=== PATIENT | male | born 1995 | race Two or more races ===

== ENCOUNTER 2016-12-25 22:15 | Inpatient (IN) | payer OTHER ==
--- NOTE | 2016-12-25 22:31 | HP ---
COWS - Scale Resting Pulse: 0= [place] 80 or Below Sweatin=Flushed/Facial Moisture Restless Observation: 1= Difficult to Sit Still Pupil Size: 1= Pupils >than Normal Bone or Joint Aches: 1= Mild Discomfort Runny Nose/ Eye Tearin= Nasal Congestion GI Upset > 30mins: 1= Stomach Cramp Tremor Observation: 2= Slight Tremor Visible Yawning Observation: 0= None Anxiety or Irritability: 1=Feels Anxious/Irritable Goose Flesh Skin: 0=Smooth Skin COWS Score: 10 CIWA Score - CIWA Score Nausea/Vomitin Muscle Tremors: 2 Anxiety: 3 Agitation: 2 Paroxysmal Sweats: 3 Orientation: 0-Oriented Tacttile Disturbances: 2-Mild Itch/Numbness/Burn Auditory Disturbances: 2-Mild Harshness/Frighten Visual Disturbances: 2-Mild Sensitivity Headache: 1-Very Mild CIWA-Ar Total Score: 20 Admission ROS BHS - HPI Chief Complaint: DEPENDENT ON ETOH, HEROIN, CRACK, BENZO. AND MARIJUANA Allergies/Adverse Reactions: Allergies Allergy/AdvReac Type Severity Reaction Status Date / Time SEAFOOD Allergy Uncoded 12/25/16 22:43 History of Present Illness: THE PT. IS REQUESTING ADMISSION TO THE DETOX UNIT AND CAME FOR MEDICAL CLEARANCE Exam Limitations: No Limitations - Ebola screening Have you traveled outside of the country in the last 21 days: No (N) Have you had contact with anyone from an Ebola affected area: No Have you been sick,other than usual withdrawal symptoms: No Do you have a fever: No - Review of Systems Constitutional: See HPI, Loss of Appetite, Malaise, Weakness, Unintentional Wgt. Loss EENT: reports: See HPI Respiratory: reports: See HPI, Wheezing Cardiac: reports: See HPI, Syncope GI: reports: See HPI, Nausea, Poor Appetite, Abdominal cramping : reports: No Symptoms Reported, See HPI Musculoskeletal: reports: See HPI, Muscle Pain, Muscle Weakness Integumentary: reports: See HPI, Sweating Neuro: reports: See HPI, Headache, Tremors, Weakness, Unsteady Gait Endocrine: reports: See HPI Hematology: reports: See HPI Psychiatric: reports: Orientated x3, Anxious, Depressed Patient History - Patient Medical History Hx Asthma: Yes Hx Seizures: No Hx Human Immunodeficiency Virus (HIV): No Hx Hepatitis C: No Hx Depression: Yes (AND ANXIETY) Hx Suicide Attempt: No - Patient Surgical History Past Surgical History: No - Smoking Cessation Smoking history: Current every day smoker Have you smoked in the past 12 months: Yes Aproximately how many cigarettes per day: 10 Hx Chewing Tobacco Use: No Initiated information on smoking cessation: No 'Breaking Loose' booklet given: 12/25/16 - Substance & Tx. History Hx Alcohol Use: Yes Substance Use Type: Alcohol, Cocaine, Heroin, Marijuana, Tranquilizers Hx Substance Use Treatment: Yes - Substances Abused Alcohol Route: Oral Frequency: Daily Amount used: BEER 3 CANS/LIQUIOR 1 P/D Age of first use: 10 Date of Last Use: 12/25/16 Heroin Route: Inhalation Frequency: Daily Amount used: 2 B/D Age of first use: 16 Date of Last Use: 12/25/16 Crack Route: Smoking Frequency: Daily Amount used: $300/D Age of first use: 16 Date of Last Use: 12/25/16 Marijuana/Hashish Route: Inhalation Frequency: Daily Amount used: $40/D Age of first use: 10 Date of Last Use: 12/25/16 Diazepam Route: Oral Frequency: Daily Amount used: 5 MG./D Age of first use: 18 Date of Last Use: 12/25/16 Family Disease History - Family Disease History Family Disease History: Other: Mother (STEP MOTHER IS ADDICTED TO ETOH AND DRUGS ) Admission Physical Exam [facility] - Physical General Appearance: Yes: No Apparent Distress, Appropriately Dressed, Thin, Tremorous, Sweating, Anxious HEENTM: Yes: Hearing grossly Normal, Normal Voice, NITA, Pharynx Normal Respiratory: Yes: Chest Non-Tender, Lungs Clear, Normal Breath Sounds, No Respiratory Distress, No Accessory Muscle Use Neck: Yes: No masses,lesions,Nodules, Supple, Trachea in good position Breast: Yes: Breast Exam Deferred, Axillae without masses Cardiology: Yes: Regular Rhythm, Regular Rate, S1, S2 Abdominal: Yes: Normal Bowel Sounds, Non Tender, Flat, Soft Back: Yes: Normal Inspection Musculoskeletal: Yes: full range of Motion, Muscle Pain, Muscle weakness Extremities: Yes: Normal Capillary Refill, Normal Range of Motion, Non-Tender, Tremors Neurological: Yes: Fully Oriented, Alert, Motor Strength 5/5, Normal Response, Depressed Affect Integumentary: Yes: Warm, Moist Lymphatic: Yes: Within Normal Limits - Addiitonal Findings: THE PT. IS VERY SLEEPY WITH AN UNSTEADY GAIT BUT KELLER X 3 UPON AWAKENING - Diagnostic (1) EtOH dependence Current Visit: Yes Status: Chronic Qualifiers: Substance use status: uncomplicated Qualified Code(s): F10.20 - Alcohol dependence, uncomplicated (2) Heroin dependence Current Visit: Yes Status: Chronic (3) Cocaine dependence Current Visit: Yes Status: Chronic Qualifiers: Substance use status: uncomplicated Qualified Code(s): F14.20 - Cocaine dependence, uncomplicated (4) Marijuana abuse Current Visit: Yes Status: Chronic (5) Benzodiazepine dependence Current Visit: Yes Status: Chronic (6) Nicotine dependence Current Visit: Yes Status: Chronic (7) Anxiety and depression Current Visit: Yes Status: Chronic Cleared for Admission S - Detox or Rehab [facility] Level of Care: Medically Managed Detox Regimen/Protocol: Valium BHS Breath Alcohol Content Breath Alcohol Content: 0 Vital Signs - Vital Signs Vital Signs Refused: No Temperature: 95.9 F Temperature Source: Oral Pulse Rate: 64 Respiratory Rate: 14 Blood Pressure: 111/69 BP Location: Left Arm Blood Pressure Position: Sitting - Height Height: 5 ft 5 in - Weight Weight: 149 lb Weight Measurement Method: Estimated by Patient Body Mass Index (BMI): 24.7 Urine Drug Screen - Test Device Lot Number: [id number] Expiration Date: 08/25/18 - Control Is Test Valid: Yes - Results Drug Screen Negative: No Urine Drug Screen Results: THC-Marijuana, BECKY-Cocaine, BZO-Benzodiazepines, TCA- Tricyclic Antidepress
[2016-12-25 22:55] VITALS: BMI 24.7
[2016-12-25] MEDS ORDERED: hydrOXYzine PAMOATE 25 MG CAPSULE (FP) PO PRN (22:55)
[2016-12-25] MEDS ORDERED: diazePAM 5 MG TABLET PO PRN (22:55)
[2016-12-25] MEDS ORDERED: MENTHOL/PHENOL 1 EACH UD MM PRN (22:55)
[2016-12-25] MEDS ORDERED: IBUPROFEN 400 MG TABLET (FP) PO PRN (22:55)
[2016-12-25] MEDS ORDERED: diphenhydrAMINE HCL 50 MG CAPSULE PO PRN (22:55)
[2016-12-25] MEDS ORDERED: MAGNESIUM HYDROX 2400MG/30ML ORAL SUSPENSION 30 ML CUP PO PRN (22:55)
[2016-12-25] MEDS ORDERED: MAG HYDROX/AL HYDROX/SIMETH 30 ML UNIT-DOSE CUP PO PRN (22:55)
[2016-12-25] MEDS ORDERED: ACETAMINOPHEN 325 MG TABLET (FP) PO PRN (22:55)
[2016-12-25] MEDS ORDERED: P-EPHED 60MG/TRIPROLIDI 2.5MG TABLET PO PRN (22:55)
[2016-12-25] MEDS ORDERED: NICOTINE POLACRILEX 2 MG GUM BC PRN (22:55)
[2016-12-25] MEDS ORDERED: guaiFENesin/D-METHORPHAN HB 10 ML UNIT-DOSE CUPS PO PRN (22:55)
[2016-12-25] MEDS ORDERED: LOPERAMIDE HCL 2 MG CAPSULE PO PRN (22:55)
[2016-12-25] MEDS ORDERED: diazePAM 5 MG TABLET PO ONE (22:55)
[2016-12-25] MEDS ORDERED: MAGNESIUM CITRATE 300 ML BOTTLE PO PRN (22:55)
[2016-12-25] MEDS ORDERED: ALBUTEROL SO4 6.7 GM HFA INHALER IH PRN (23:04)
[2016-12-25] MEDS: diazePAM 5 MG TABLET PO SCH (23:50)
[2016-12-26] MEDS: diazePAM 5 MG TABLET PO SCH ×3 (06:00→22:28)
[2016-12-26 09:48] LABS: MCH 31.4 pg (25.7-33.7); MCHC 33.2 g/dl (32.0-35.9); MEAN CELL VOLUME 94.6 fl (80-96); PLATELET COUNT 138 K/MM3 (134-434); RDW 13.8 % (11.9-15.9); WHITE BLOOD COUNT 5.4 K/mm3 (4.0-10.0)
[2016-12-26 09:56] LABS: ALBUMIN 3.3 g/dl (3.4-5.0); ANION GAP 4 (8-16); CALCIUM 8.7 mg/dL (8.5-10.1); CO2 31 mmol/L (21-32); GLUCOSE,RANDOM 119 mg/dL (74-106)
--- NOTE | 2016-12-26 09:58 | EKG ---
Test Reason : Blood Pressure : / mmHG Vent. Rate : 052 BPM Atrial Rate : 052 BPM P-R Int : 144 ms QRS Dur : 086 ms QT Int : 406 ms P-R-T Axes : -10 072 040 degrees QTc Int : 377 ms SINUS BRADYCARDIA EARLY REPOLARIZATION OTHERWISE NORMAL ECG NO PREVIOUS ECGS AVAILABLE Confirmed by LEONARD HEARD MD ([id number]) on 12/26/2016 9:58:11 AM Referred By: Confirmed By:LEONARD HEARD MD
[2016-12-26] MEDS ORDERED: NICOTINE 14 MG/24 HOURS TOPICAL PATCH TD SCH (10:00)
[2016-12-26] MEDS ORDERED: PRENATAL VITAMINS W/ FOLIC ACID TABLET (FP) PO SCH (10:00)
[2016-12-26 10:01] LABS: ALK PHOS 58 U/L (45-117); BILIRUBIN,TOTAL 0.5 mg/dL (0.2-1.0); CREATININE 1.1 mg/dL (0.7-1.3); SGOT/AST 22 U/L (15-37); SGPT/ALT 22 U/L (12-78); TOT PROT 6.1 g/dl (6.4-8.2)
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
--- NOTE | 2016-12-26 15:01 | PN ---
[facility] CIWA - CIWA Score Nausea/Vomitin-No Nausea/No Vomiting Muscle Tremors: 3 Anxiety: 4-Mod. Anxious/Guarded Agitation: 4-Moderately Restless Paroxysmal Sweats: 3 Orientation: 0-Oriented Tacttile Disturbances: 0-None Auditory Disturbances: 0-None Visual Disturbances: 0-None Headache: 0-None Present CIWA-Ar Total Score: 14 BHS Progress Note (SOAP) Subjective: Anxiety,tremors,sweating,interrupted sleep,restless Objective: 12/26/16 15:00 Vital Signs - 8 hr 12/26/16 12/26/16 09:19 13:21 Temperature 97.3 F L 98.0 F Pulse Rate 62 76 Respiratory 16 16 Rate Blood Pressure 120/71 116/72 Laboratory Last Values WBC 5.4 K/mm3 (4.0-10.0) 12/26/16 06:30 RBC 4.56 M/mm3 (4.00-5.60) 12/26/16 06:30 Hgb 14.3 GM/dL (11.7-16.9) 12/26/16 06:30 Hct 43.1 % (35.4-49) 12/26/16 06:30 MCV 94.6 fl (80-96) 12/26/16 06:30 MCH 31.4 pg (25.7-33.7) 12/26/16 06:30 MCHC 33.2 g/dl (32.0-35.9) 12/26/16 06:30 RDW 13.8 % (11.9-15.9) 12/26/16 06:30 Plt Count 138 K/MM3 (134-434) 12/26/16 06:30 MPV 11.0 fl (7.5-11.1) 12/26/16 06:30 Sodium 139 mmol/L (136-145) 12/26/16 06:30 Potassium 4.0 mmol/L (3.5-5.1) 12/26/16 06:30 Chloride 104 mmol/L (98-107) 12/26/16 06:30 Carbon Dioxide 31 mmol/L (21-32) 12/26/16 06:30 Anion Gap 4 (8-16) L 12/26/16 06:30 BUN 10 mg/dL (7-18) 12/26/16 06:30 Creatinine 1.1 mg/dL (0.7-1.3) 12/26/16 06:30 Creat Clearance w eGFR > 60 (>60) 12/26/16 06:30 Random Glucose 119 mg/dL (74-106) H 12/26/16 06:30 Calcium 8.7 mg/dL (8.5-10.1) 12/26/16 06:30 Total Bilirubin 0.5 mg/dL (0.2-1.0) 12/26/16 06:30 AST 22 U/L (15-37) 12/26/16 06:30 ALT 22 U/L (12-78) 12/26/16 06:30 Alkaline Phosphatase 58 U/L (45-117) 12/26/16 06:30 Total Protein 6.1 g/dl (6.4-8.2) L 12/26/16 06:30 Albumin 3.3 g/dl (3.4-5.0) L 12/26/16 06:30 RPR Titer Nonreactive (NONREACTIVE) 12/26/16 06:30 labs noted Assessment: 12/26/16 15:01 Withdrawal sx. Plan: Continue detox
[2016-12-26 17:08] LABS: URINE APPEARANCE SLCLOUDY; URINE BILIRUBIN NEGATIVE (NEGATIVE); URINE BLOOD NEGATIVE (NEGATIVE); URINE COLOR YELLOW; URINE GLUCOSE (UA) NEGATIVE (NEGATIVE); URINE KETONE NEGATIVE (NEGATIVE); URINE LEUK ESTERASE TRACE (NEGATIVE); URINE NITRITE NEGATIVE (NEGATIVE); URINE PROTEIN NEGATIVE (NEGATIVE); URINE UROBILINOGEN NEGATIVE mg/dL (0.2-1.0)
[2016-12-26 17:12] LABS: URINE HYALINE CAST 1 /lpf; URINE MUCUS RARE; URINE RBC <1 /hpf (0-3); URINE WBC 5 /hpf (3-5); YEAST RARE
[2016-12-26] MEDS ORDERED: THIAMINE HCL 100 MG TABLET (FP) PO SCH (22:00)
[2016-12-27 06:11] VITALS: BP 121/77; PULSE 61; TEMP 96.5
[2016-12-27] MEDS ORDERED: diazePAM 5 MG TABLET PO SCH (10:00)
--- NOTE | 2016-12-27 13:56 | DS ---
[facility] Detox Discharge Summary Admission Date: 12/25/16 Discharge Date: 12/27/16 - History Present History: Alcohol Dependence, Cocaine Dependence, Sedative Dependence Pertinent Past History: Mood disorder - Physical Exam Results Vital Signs: Vital Signs Temperature 96.5 F L 12/27/16 06:11 Pulse Rate 61 12/27/16 06:11 Respiratory Rate 18 12/27/16 06:11 Blood Pressure 121/77 12/27/16 06:11 O2 Sat by Pulse Oximetry (%) Pertinent Admission Physical Exam Findings: Withdrawal sx. Laboratory Last Values WBC 5.4 K/mm3 (4.0-10.0) 12/26/16 06:30 RBC 4.56 M/mm3 (4.00-5.60) 12/26/16 06:30 Hgb 14.3 GM/dL (11.7-16.9) 12/26/16 06:30 Hct 43.1 % (35.4-49) 12/26/16 06:30 MCV 94.6 fl (80-96) 12/26/16 06:30 MCH 31.4 pg (25.7-33.7) 12/26/16 06:30 MCHC 33.2 g/dl (32.0-35.9) 12/26/16 06:30 RDW 13.8 % (11.9-15.9) 12/26/16 06:30 Plt Count 138 K/MM3 (134-434) 12/26/16 06:30 MPV 11.0 fl (7.5-11.1) 12/26/16 06:30 Sodium 139 mmol/L (136-145) 12/26/16 06:30 Potassium 4.0 mmol/L (3.5-5.1) 12/26/16 06:30 Chloride 104 mmol/L (98-107) 12/26/16 06:30 Carbon Dioxide 31 mmol/L (21-32) 12/26/16 06:30 Anion Gap 4 (8-16) L 12/26/16 06:30 BUN 10 mg/dL (7-18) 12/26/16 06:30 Creatinine 1.1 mg/dL (0.7-1.3) 12/26/16 06:30 Creat Clearance w eGFR > 60 (>60) 12/26/16 06:30 Random Glucose 119 mg/dL (74-106) H 12/26/16 06:30 Calcium 8.7 mg/dL (8.5-10.1) 12/26/16 06:30 Total Bilirubin 0.5 mg/dL (0.2-1.0) 12/26/16 06:30 AST 22 U/L (15-37) 12/26/16 06:30 ALT 22 U/L (12-78) 12/26/16 06:30 Alkaline Phosphatase 58 U/L (45-117) 12/26/16 06:30 Total Protein 6.1 g/dl (6.4-8.2) L 12/26/16 06:30 Albumin 3.3 g/dl (3.4-5.0) L 12/26/16 06:30 Urine Color Yellow 12/26/16 13:27 Urine Appearance Slcloudy 12/26/16 13:27 Urine pH 7.0 (5.0-8.0) 12/26/16 13:27 Ur Specific [place] 1.020 (1.005-1.025) 12/26/16 13:27 Urine Protein Negative (NEGATIVE) 12/26/16 13:27 Urine Glucose (UA) Negative (NEGATIVE) 12/26/16 13:27 Urine Ketones Negative (NEGATIVE) 12/26/16 13:27 Urine Blood Negative (NEGATIVE) 12/26/16 13:27 Urine Nitrite Negative (NEGATIVE) 12/26/16 13:27 Urine Bilirubin Negative (NEGATIVE) 12/26/16 13:27 Urine Urobilinogen Negative mg/dL (0.2-1.0) 12/26/16 13:27 Ur Leukocyte Esterase Trace (NEGATIVE) 12/26/16 13:27 Urine RBC <1 /hpf (0-3) 12/26/16 13:27 Urine WBC 5 /hpf (3-5) 12/26/16 13:27 Ur Epithelial Cells Rare /hpf (FEW) 12/26/16 13:27 Hyaline Casts 1 /lpf 12/26/16 13:27 Urine Mucus Rare 12/26/16 13:27 Urine Yeast Rare 12/26/16 13:27 RPR Titer Nonreactive (NONREACTIVE) 12/26/16 06:30 labs noted - Treatment Patient has Accepted a Rehab Referral to: [facility] - Medication Discharge Medications: Ambulatory Orders Albuterol Sulfate Inhaler - [Ventolin Hfa *Inhaler*] 1 - 2 inh IH Q4H 02/25/12 Divalproex Sodium [Depakote ER] 500 mg PO BID 12/25/16 Hydroxyzine Pamoate [Vistaril -] 150 mg PO BID 12/25/16 - Diagnosis (1) Cocaine dependence Status: Acute Qualifiers: Substance use status: uncomplicated Qualified Code(s): F14.20 - Cocaine dependence, uncomplicated (2) Marihuana dependence Status: Acute (3) Nicotine dependence Status: Acute Qualifiers: Nicotine product type: cigarettes Substance use status: uncomplicated Qualified Code(s): F17.210 - Nicotine dependence, cigarettes, uncomplicated (4) Substance induced mood disorder Status: Acute (5) Asthma Status: Acute (6) Alcohol dependence with uncomplicated withdrawal Status: Acute (7) Sedative, hypnotic or anxiolytic dependence with withdrawal, uncomplicated Status: Acute - AMA Did Patient Leave Against Medical Advice: Yes
[2016-12-29] MEDS ORDERED: diazePAM 5 MG TABLET PO SCH (10:00)
== END 2016-12-27 09:02 | disposition left against medical advice (07) | DRG 770 ==
LOC: YASAS 22:15 → Y3N 22:45 → MERGE 22:45
PROVIDERS: ADMIT Internal Medicine; ATTEND Internal Medicine
PROC: HZ2ZZZZ Detoxification Services for Substance Abuse Treatment (ICD-10-PCS; principal; 2016-12-27)
DX: F13.230 Sedative, hypnotic or anxiolytic dependence with withdrawal, uncomplicated (principal); F10.230 Alcohol dependence with withdrawal, uncomplicated; F14.20 Cocaine dependence, uncomplicated; F12.20 Cannabis dependence, uncomplicated; F17.210 Nicotine dependence, cigarettes, uncomplicated; F19.24 Other psychoactive substance dependence with psychoactive substance-induced mood disorder; G47.00 Insomnia, unspecified; J45.901 Unspecified asthma with (acute) exacerbation
CPT/HCPCS: 36415; 80053; 81003; 81015; 85027; 86593; 93005; 93010

== ENCOUNTER 2017-02-15 09:06 | Inpatient (IN) | payer OTHER ==
[2017-02-15 10:29] VITALS: BMI 22.9
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
[2017-02-15] MEDS ORDERED: chlordiazePOXIDE HCL 25 MG CAPSULE PO PRN (14:59)
[2017-02-15] MEDS ORDERED: NICOTINE POLACRILEX 4 MG GUM BUC PRN (14:59)
[2017-02-15] MEDS ORDERED: hydrOXYzine PAMOATE 50 MG CAPSULE (FP) PO PRN (14:59)
[2017-02-15] MEDS ORDERED: IBUPROFEN 400 MG TABLET (FP) PO PRN (14:59)
[2017-02-15] MEDS ORDERED: ACETAMINOPHEN 325 MG TABLET (FP) PO PRN (14:59)
[2017-02-15] MEDS ORDERED: LOPERAMIDE HCL 2 MG CAPSULE PO PRN (14:59)
[2017-02-15] MEDS ORDERED: P-EPHED 60MG/TRIPROLIDI 2.5MG TABLET PO PRN (14:59)
[2017-02-15] MEDS ORDERED: MAGNESIUM HYDROX 2400MG/30ML ORAL SUSPENSION 30 ML CUP PO PRN (14:59)
[2017-02-15] MEDS ORDERED: diphenhydrAMINE HCL 50 MG CAPSULE PO PRN (14:59)
[2017-02-15] MEDS ORDERED: guaiFENesin/D-METHORPHAN HB 10 ML UNIT-DOSE CUPS PO PRN (14:59)
[2017-02-15] MEDS ORDERED: MENTHOL/PHENOL 1 EACH UD MM PRN (14:59)
[2017-02-15] MEDS ORDERED: MAG HYDROX/AL HYDROX/SIMETH 30 ML UNIT-DOSE CUP PO PRN (14:59)
[2017-02-15] MEDS ORDERED: MAGNESIUM CITRATE 300 ML BOTTLE PO PRN (14:59)
[2017-02-15] MEDS ORDERED: ALBUTEROL SO4 6.7 GM HFA INHALER IH PRN (15:03)
[2017-02-15] MEDS ORDERED: chlordiazePOXIDE HCL 25 MG CAPSULE PO ONE (15:29)
[2017-02-15] MEDS: NICOTINE 14 MG/24 HOURS TOPICAL PATCH TD SCH (15:53)
[2017-02-15 17:15] LABS: URINE APPEARANCE SLCLOUDY; URINE BILIRUBIN NEGATIVE (NEGATIVE); URINE BLOOD NEGATIVE (NEGATIVE); URINE COLOR YELLOW; URINE GLUCOSE (UA) NEGATIVE (NEGATIVE); URINE KETONE NEGATIVE (NEGATIVE); URINE LEUK ESTERASE NEGATIVE (NEGATIVE); URINE NITRITE NEGATIVE (NEGATIVE); URINE PROTEIN NEGATIVE (NEGATIVE); URINE UROBILINOGEN NEGATIVE mg/dL (0.2-1.0)
[2017-02-15] MEDS: chlordiazePOXIDE HCL 25 MG CAPSULE PO SCH ×2 (17:40→22:09)
[2017-02-15 18:49] LABS: HIV 1 & 2 AB NEGATIVE; HIV 1 AGp24 NEGATIVE
[2017-02-15] MEDS: THIAMINE HCL 100 MG TABLET (FP) PO SCH (22:09)
[2017-02-16] MEDS: chlordiazePOXIDE HCL 25 MG CAPSULE PO SCH ×4 (05:30→22:11)
[2017-02-16 10:12] LABS: MCH 31.5 pg (25.7-33.7); MEAN CELL VOLUME 95.2 fl (80-96); MEAN PLT VOLUME 11.8 fl (7.5-11.1); PLATELET COUNT 184 K/MM3 (134-434); WHITE BLOOD COUNT 5.6 K/mm3 (4.0-10.0)
[2017-02-16] MEDS: PRENATAL VITAMINS W/ FOLIC ACID TABLET (FP) PO SCH (10:34)
[2017-02-16] MEDS: NICOTINE 14 MG/24 HOURS TOPICAL PATCH TD SCH (10:34)
--- NOTE | 2017-02-16 10:36 | CONSULT ---
[facility] Psychiatric Consult - Data Date of interview: 02/16/17 Admission source: [facility] Identifying data: This is 21 years old male with history of Bipoplar Disorder, history of psyhiatric hospitalizations, intoxicated with: Alcohol, Cocaine, Cannabis, Xanax and Nicotine Substance Abuse History: - Smoking Cessation. Smoking history: Current every day smoker. Have you smoked in the past 12 months: Yes. Aproximately how many cigarettes per day: 40. Hx Chewing Tobacco Use: No. Initiated information on smoking cessation: Yes. 'Breaking Loose' booklet given: 02/15/17. - Substance & Tx. History. Hx Alcohol Use: Yes. Hx Substance Use: Yes. Substance Use Type : Alcohol, Cocaine, Marijuana. Hx Substance Use Treatment: Yes (did not complete here at [facility] 01/12). - Substances Abused. Crack. Route: Smoking. Frequency: 3-6 times per week. Amount used: $500. Age of first use: 17. Date of Last Use: 02/15/17. Alcohol-beer/cognac. Route: Oral. Frequency: Daily. Amount used: 2-3 6 pks./2-3 pts. Age of first use: 11. Date of Last Use: 02/15/17. Marijuana/Hashish. Route: Smoking. Frequency: 3-6 times per week. Amount used: heavy. Age of first use: 11. Date of Last Use: 02/14/17 Medical History: Asthma Psychiatric History: Patient reprots to carry Bypolar Disorder with most recent psychiatric admission on aboput 5 years ago at [facility], reports taking Depakote ER 500mg po bid Physical/Sexual Abuse/Trauma History: Denies Additional Comment: Depakote ER 500mg po bid Mental Status Exam - Mental Status Exam Alert and Oriented to: Person Cognitive Function: Fair Patient Appearance: Unkempt Mood: Withdrawn, Anxious Affect: Labile Patient Behavior: Talkative, Cooperative Speech Pattern: Excessive Voice Loudness: Mildly Soft/Quiet Thought Process: Circumstantial Thought Disorder: Being Controlled Hallucinations: Denies Suicidal Ideation: Denies Homicidal Ideation: Denies Insight/Judgement: Fair Sleep: Difficulty falling asleep Appetite: Weight loss Muscle strength/Tone: Normal Gait/Station: Shuffling Additional Comments: Depakote ER 500mg po bid Psychiatric Findings - Problem List ([place] 1, 2,3) (1) Dejuanana dependence Current Visit: Yes Status: Chronic (2) Nicotine dependence Current Visit: Yes Status: Chronic Qualifiers: Nicotine product type: cigarettes Substance use status: uncomplicated Qualified Code(s): F17.210 - Nicotine dependence, cigarettes, uncomplicated (3) CANNABIS ABUSE Current Visit: No Status: Active (4) Alcohol dependence with uncomplicated withdrawal Current Visit: No Status: Acute (5) Cocaine dependence Current Visit: No Status: Acute Qualifiers: Substance use status: uncomplicated Qualified Code(s): F14.20 - Cocaine dependence, uncomplicated (6) Substance induced mood disorder Current Visit: No Status: Acute (7) Bipolar I disorder Current Visit: Yes Status: Acute - Initial Treatment Plan Initial Treatment Plan: Depakote ER 500mg po bid
[2017-02-16 10:55] LABS: ALBUMIN 4.2 g/dl (3.4-5.0); ALK PHOS 56 U/L (45-117); ANION GAP 9 (8-16); BILIRUBIN,TOTAL 1.3 mg/dL (0.2-1.0); CALCIUM 9.4 mg/dL (8.5-10.1); CO2 26 mmol/L (21-32); GLUCOSE,RANDOM 80 mg/dL (74-106); SGOT/AST 23 U/L (15-37); SGPT/ALT 23 U/L (12-78); TOT PROT 7.5 g/dl (6.4-8.2)
[2017-02-16] MEDS: DIVALPROEX NA *ER* EXTEND REL 500 MG TABLET.SA (FP) PO SCH ×2 (11:00→22:11)
--- NOTE | 2017-02-16 12:50 | PN ---
S CIWA - CIWA Score Nausea/Vomitin Muscle Tremors: 3 Anxiety: 3 Agitation: 3 Paroxysmal Sweats: 1-Minimal Palms Moist Orientation: 0-Oriented Tacttile Disturbances: 1-Very Mild Itch/Numbness Auditory Disturbances: 1-Very Mild Visual Disturbances: 1-Very Mild Sensitivity Headache: 2-Mild CIWA-Ar Total Score: 18 S Progress Note (SOAP) Subjective: alert,irritable,anxious,interrupted sleep,tremor Objective: 02/16/17 12:48 Vital Signs Temperature 96.8 F L 02/16/17 09:47 Pulse Rate 60 02/16/17 09:47 Respiratory Rate 18 02/16/17 09:47 Blood Pressure 119/68 02/16/17 09:47 O2 Sat by Pulse Oximetry (%) ekg sinus bradycardia 53/min no chest pain,no sob,no dizziness Laboratory Last Values WBC 5.6 K/mm3 (4.0-10.0) 02/16/17 06:00 RBC 4.78 M/mm3 (4.00-5.60) 02/16/17 06:00 Hgb 15.0 GM/dL (11.7-16.9) 02/16/17 06:00 Hct 45.5 % (35.4-49) 02/16/17 06:00 MCV 95.2 fl (80-96) 02/16/17 06:00 MCH 31.5 pg (25.7-33.7) 02/16/17 06:00 MCHC 33.0 g/dl (32.0-35.9) 02/16/17 06:00 RDW 14.0 % (11.9-15.9) 02/16/17 06:00 Plt Count 184 K/MM3 (134-434) D 02/16/17 06:00 MPV 11.8 fl (7.5-11.1) H 02/16/17 06:00 Sodium 139 mmol/L (136-145) 02/16/17 06:00 Potassium 4.2 mmol/L (3.5-5.1) 02/16/17 06:00 Chloride 104 mmol/L (98-107) 02/16/17 06:00 Carbon Dioxide 26 mmol/L (21-32) 02/16/17 06:00 Anion Gap 9 (8-16) 02/16/17 06:00 BUN 13 mg/dL (7-18) D 02/16/17 06:00 Creatinine 1.0 mg/dL (0.7-1.3) 02/16/17 06:00 Creat Clearance w eGFR > 60 (>60) 02/16/17 06:00 Random Glucose 80 mg/dL (74-106) D 02/16/17 06:00 Calcium 9.4 mg/dL (8.5-10.1) 02/16/17 06:00 Total Bilirubin 1.3 mg/dL (0.2-1.0) H D 02/16/17 06:00 AST 23 U/L (15-37) 02/16/17 06:00 ALT 23 U/L (12-78) 02/16/17 06:00 Alkaline Phosphatase 56 U/L (45-117) 02/16/17 06:00 Total Protein 7.5 g/dl (6.4-8.2) D 02/16/17 06:00 Albumin 4.2 g/dl (3.4-5.0) D 02/16/17 06:00 Urine Color Yellow 02/15/17 15:00 Urine Appearance Slcloudy 02/15/17 15:00 Urine pH 5.0 (5.0-8.0) D 02/15/17 15:00 Ur Specific [place] 1.025 (1.005-1.025) 02/15/17 15:00 Urine Protein Negative (NEGATIVE) 02/15/17 15:00 Urine Glucose (UA) Negative (NEGATIVE) 02/15/17 15:00 Urine Ketones Negative (NEGATIVE) 02/15/17 15:00 Urine Blood Negative (NEGATIVE) 02/15/17 15:00 Urine Nitrite Negative (NEGATIVE) 02/15/17 15:00 Urine Bilirubin Negative (NEGATIVE) 02/15/17 15:00 Urine Urobilinogen Negative mg/dL (0.2-1.0) 02/15/17 15:00 RPR Titer Nonreactive (NONREACTIVE) 02/16/17 06:00 HIV 1&2 Antibody Screen Negative 02/15/17 12:00 HIV P24 Antigen Negative 02/15/17 12:00 Assessment: 02/16/17 12:49 withdrawal symptom Plan: continue detox
--- NOTE | 2017-02-16 16:01 | EKG ---
Test Reason : Blood Pressure : / mmHG Vent. Rate : 053 BPM Atrial Rate : 053 BPM P-R Int : 148 ms QRS Dur : 088 ms QT Int : 404 ms P-R-T Axes : 027 078 064 degrees QTc Int : 379 ms SINUS BRADYCARDIA EARLY REPOLARIZATION OTHERWISE NORMAL ECG WHEN COMPARED WITH ECG OF 09-FEB-2005 15:24, PREVIOUS ECG IS PRESENT Confirmed by SONIYA ORTEGA MD ([id number]) on 02/16/2017 4:01:14 PM Referred By: Confirmed By:SONIYA ORTEGA MD
[2017-02-16] MEDS: THIAMINE HCL 100 MG TABLET (FP) PO SCH (22:11)
[2017-02-17] MEDS: chlordiazePOXIDE HCL 25 MG CAPSULE PO SCH ×2 (06:31→10:55)
--- NOTE | 2017-02-17 10:47 | PN ---
S CIWA - CIWA Score Nausea/Vomitin Muscle Tremors: 3 Anxiety: 3 Agitation: 3 Paroxysmal Sweats: 1-Minimal Palms Moist Orientation: 1-Uncertain about Date Tacttile Disturbances: 1-Very Mild Itch/Numbness Auditory Disturbances: 0-None Visual Disturbances: 0-None Headache: 2-Mild CIWA-Ar Total Score: 16 BHS Progress Note (SOAP) Subjective: alert,irritable,anxious,interrupted sleep,pain in the body and back,interrupted sleep Objective: 02/17/17 10:46 Vital Signs Temperature 97.3 F L 02/17/17 09:52 Pulse Rate 71 02/17/17 09:52 Respiratory Rate 18 02/17/17 09:52 Blood Pressure 124/77 02/17/17 09:52 O2 Sat by Pulse Oximetry (%) Assessment: 02/17/17 10:46 withdrawal symptom Plan: continue detox
[2017-02-17] MEDS: PRENATAL VITAMINS W/ FOLIC ACID TABLET (FP) PO SCH (10:54)
[2017-02-17] MEDS: NICOTINE 14 MG/24 HOURS TOPICAL PATCH TD SCH (10:55)
[2017-02-17] MEDS: DIVALPROEX NA *ER* EXTEND REL 500 MG TABLET.SA (FP) PO SCH ×2 (10:55→22:42)
[2017-02-17] MEDS: chlordiazePOXIDE 5 MG CAPSULE PO SCH ×2 (17:36→22:39)
[2017-02-17] MEDS: THIAMINE HCL 100 MG TABLET (FP) PO SCH (22:39)
[2017-02-17 23:44] VITALS: BP 107/76; PULSE 84; TEMP 98.4
[2017-02-18] MEDS ORDERED: chlordiazePOXIDE HCL 10 MG CAPSULE PO SCH (17:00)
== END 2017-02-17 23:20 | disposition home or self-care (01) | DRG 774 ==
LOC: YASAS 09:06 → Y6N 13:34
PROVIDERS: ADMIT Internal Medicine; ATTEND Internal Medicine
PROC: HZ2ZZZZ Detoxification Services for Substance Abuse Treatment (ICD-10-PCS; principal; 2017-02-15)
DX: F13.230 Sedative, hypnotic or anxiolytic dependence with withdrawal, uncomplicated (principal); F10.230 Alcohol dependence with withdrawal, uncomplicated; F14.20 Cocaine dependence, uncomplicated; F12.20 Cannabis dependence, uncomplicated; F17.210 Nicotine dependence, cigarettes, uncomplicated; F19.24 Other psychoactive substance dependence with psychoactive substance-induced mood disorder; F31.9 Bipolar disorder, unspecified; J45.909 Unspecified asthma, uncomplicated
CPT/HCPCS: 36415; 80053; 80164; 81003; 85027; 86593; 87389; 93005; 93010

== ENCOUNTER 2017-08-12 13:13 | Inpatient (IN) | payer OTHER ==
--- NOTE | 2017-08-12 17:52 | HP ---
CIWA Score - CIWA Score Nausea/Vomitin Muscle Tremors: 3 Anxiety: 3 Agitation: 3 Paroxysmal Sweats: 2 Orientation: 0-Oriented Tacttile Disturbances: 2-Mild Itch/Numbness/Burn Auditory Disturbances: 2-Mild Harshness/Frighten Visual Disturbances: 0-None Headache: 2-Mild CIWA-Ar Total Score: 20 Admission ROS BHS - HPI Chief Complaint: I NEED HELP HELP TO STOP DRINKING ALCOHOL AND COCAINE,MARIJUANA,PCP Allergies/Adverse Reactions: Allergies Allergy/AdvReac Type Severity Reaction Status Date / Time shellfish derived Allergy Severe Swelling Verified 08/12/17 18:44 No Known Drug Allergies Allergy Verified 08/12/17 18:44 NKDA Allergy Uncoded 08/12/17 18:44 History of Present Illness: THIS 21 YEARS OLD BLACK MALE WITH ALCOHOL,COCAINE,MARIJUANA AND PCP DEPENDENCE, SEEKING DET[facility]AW[facility]MPTOM,[facility] [place] NICOTINE DEPENDENCE INSOMNIA LONGEST PERIOD OF SOBRIETY 2 MONTHS Exam Limitations: No Limitations - Ebola screening Have you traveled outside of the country in the last 21 days: No (N) Have you had contact with anyone from an Ebola affected area: No Do you have a fever: No - Review of Systems Constitutional: Loss of Appetite, Malaise, Night Sweats, Changes in sleep, Weakness EENT: reports: Nose Congestion Respiratory: reports: No Symptoms reported Cardiac: reports: Palpitations GI: reports: Diarrhea, Nausea, Vomiting, Abdominal cramping : reports: No Symptoms Reported Musculoskeletal: reports: Back Pain, Muscle Pain Integumentary: reports: Dryness Neuro: reports: Headache, Tremors Endocrine: reports: No Symptoms Reported Hematology: reports: No Symptoms Reported Psychiatric: reports: No Sypmtoms Reported (INSOMNIA), Judgement Intact, Mood/ Affect Appropiate Patient History - Patient Medical History Hx Anemia: No Hx Asthma: Yes (albuterol inhaler) Hx Chronic Obstructive Pulmonary Disease (COPD): No Hx Cancer: No Hx Cardiac Disorders: No Hx Congestive Heart Failure: No Hx Hypertension: No Hx Hypercholesterolemia: No Hx Pacemaker: No HX Cerebrovascular Accident: No Hx Seizures: No Hx Dementia: No Hx Diabetes: No Hx Gastrointestinal Disorders: No Hx Liver Disease: No Hx Genitourinary Disorders: No Hx Sexually Transmitted Disorders: No Hx Renal Disease (ESRD): No Hx Thyroid Disease: No Hx Human Immunodeficiency Virus (HIV): No (LAST 05/14 NEGATIVE) Hx Hepatitis C: No Hx Depression: Yes Hx Suicide Attempt: No (no suicidal ideation ) Hx Bipolar Disorder: Yes (not taking meds, depakote and vistaril) Hx Schizophrenia: No Other Medical History: NO SUICIDAL,NO HOMICIDAL - Patient Surgical History Past Surgical History: No Hx Neurologic Surgery: No Hx Cataract Extraction: No Hx Cardiac Surgery: No Hx Lung Surgery: No Hx Breast Surgery: No Hx Breast Biopsy: No Hx Abdominal Surgery: No Hx Appendectomy: No Hx Cholecystectomy: No Hx Genitourinary Surgery: No Hx Section: No Hx Orthopedic Surgery: No Hx Hysterectomy: No Anesthesia Reaction: No - PPD History Previous Implant?: Yes Documented Results: Negative w/o proof Date: 02/17/17 PPD to be Administered?: Yes - Smoking Cessation Smoking history: Current every day smoker Have you smoked in the past 12 months: Yes Aproximately how many cigarettes per day: 5 Hx Chewing Tobacco Use: No Initiated information on smoking cessation: Yes 'Breaking Loose' booklet given: 08/12/17 - Substance & Tx. History Hx Alcohol Use: Yes Hx Substance Use: Yes Substance Use Type: Alcohol, Cocaine, Marijuana Hx Substance Use Treatment: Yes ([facility] 02/15/17 TO 02/17/71 NOT COMPLETED) - Substances Abused Alcohol Route: Oral Frequency: Daily Amount used: 2 PINTS OF VODKA/2 OF 6 PACKS OF 12 OZS OF BEER Age of first use: 10 Date of Last Use: 08/11/17 Cocaine Route: Smoking Frequency: 3-6 times per week Amount used: 100$ Age of first use: 17 Date of Last Use: 08/11/17 Marijuana/Hashish Route: Smoking Frequency: 3-6 times per week Amount used: 40$ Age of first use: 10 Date of Last Use: 08/12/17 PCP Route: Smoking Frequency: 1-2 times per week Amount used: 10$ Age of first use: 16 Date of Last Use: 08/10/17 Family Disease History - Family Disease History Family Disease History: Heart Disease: Father, Mother (STEP MOTHER IS ADDICTED TO ETOH AND DRUGS), Other: Mother Admission Physical Exam BHS - Vital Signs Vital Signs: Vital Signs Temperature 98.6 F 08/12/17 18:18 Pulse Rate 80 08/12/17 18:18 Respiratory Rate 18 08/12/17 18:18 Blood Pressure 102/53 08/12/17 18:18 O2 Sat by Pulse Oximetry (%) - Physical General Appearance: Yes: Moderate Distress, Tremorous, Irritable, Sweating, Anxious HEENTM: Yes: Normal ENT Inspection, NITA, Pharynx Normal Respiratory: Yes: Lungs Clear, Normal Breath Sounds, No Respiratory Distress Neck: Yes: Within Normal Limits, Supple, Trachea in good position Breast: Yes: Within Normal Limits Cardiology: Yes: Within Normal Limits, Regular Rhythm, Regular Rate, S1, S2 Abdominal: Yes: Normal Bowel Sounds, Non Tender, Flat, Soft, Organomegaly Genitourinary: Yes: Within Normal Limits Back: Yes: Within Normal Limits, Normal Inspection, Muscle Spasm Musculoskeletal: Yes: full range of Motion, Back pain, Muscle Pain Extremities: Yes: Tremors Neurological: Yes: academic coordinator II-XII NML intact, Alert, Motor Strength 5/5 Integumentary: Yes: Dry Lymphatic: Yes: Within Normal Limits - Diagnostic (1) Alcohol dependence with uncomplicated withdrawal Current Visit: No Status: Acute (2) Cocaine dependence Current Visit: No Status: Acute Qualifiers: Substance use status: uncomplicated Qualified Code(s): F14.20 - Cocaine dependence, uncomplicated (3) Asthma Current Visit: No Status: Chronic (4) Nicotine dependence Current Visit: No Status: Chronic Qualifiers: Nicotine product type: cigarettes Substance use status: uncomplicated Qualified Code(s): F17.210 - Nicotine dependence, cigarettes, uncomplicated (5) Cannabis dependence Current Visit: Yes Status: Acute (6) Marihuana dependence Current Visit: No Status: Chronic (7) Bipolar disorder Current Visit: Yes Status: Acute (8) PCP (phencyclidine) abuse Current Visit: Yes Status: Acute Cleared for Admission S - Detox or Rehab S Level of Care: Medically Managed Detox Regimen/Protocol: Librium S Breath Alcohol Content Breath Alcohol Content: 0
[2017-08-12] MEDS ORDERED: guaiFENesin/D-METHORPHAN HB 10 ML UNIT-DOSE CUPS PO PRN (18:09)
[2017-08-12] MEDS ORDERED: hydrOXYzine PAMOATE 50 MG CAPSULE (FP) PO PRN (18:09)
[2017-08-12] MEDS ORDERED: MAG HYDROX/AL HYDROX/SIMETH 30 ML UNIT-DOSE CUP PO PRN (18:09)
[2017-08-12] MEDS ORDERED: MAGNESIUM CITRATE 300 ML BOTTLE PO PRN (18:09)
[2017-08-12] MEDS ORDERED: MAGNESIUM HYDROX 2400MG/30ML ORAL SUSPENSION 30 ML CUP PO PRN (18:09)
[2017-08-12] MEDS ORDERED: LOPERAMIDE HCL 2 MG CAPSULE PO PRN (18:09)
[2017-08-12] MEDS ORDERED: chlordiazePOXIDE HCL 25 MG CAPSULE PO ONE (18:09)
[2017-08-12] MEDS ORDERED: chlordiazePOXIDE HCL 25 MG CAPSULE PO PRN (18:09)
[2017-08-12] MEDS ORDERED: P-EPHED 60MG/TRIPROLIDI 2.5MG TABLET PO PRN (18:09)
[2017-08-12] MEDS ORDERED: MENTHOL/PHENOL 1 EACH UD MM PRN (18:09)
[2017-08-12] MEDS ORDERED: ACETAMINOPHEN 325 MG TABLET (FP) PO PRN (18:09)
[2017-08-12] MEDS ORDERED: IBUPROFEN 400 MG TABLET (FP) PO PRN (18:09)
[2017-08-12 18:43] VITALS: BMI 24.2
[2017-08-12] MEDS ORDERED: ALBUTEROL SO4 18 GM HFA INHALER IH PRN (19:44)
[2017-08-12] MEDS: NICOTINE 14 MG/24 HOURS TOPICAL PATCH TD SCH (20:44)
[2017-08-12] MEDS: THIAMINE HCL 100 MG TABLET (FP) PO SCH (23:20)
[2017-08-12] MEDS: chlordiazePOXIDE HCL 25 MG CAPSULE PO SCH (23:20)
[2017-08-13] MEDS: chlordiazePOXIDE HCL 25 MG CAPSULE PO SCH ×4 (05:49→22:08)
[2017-08-13] MEDS: PRENATAL VITAMINS W/ FOLIC ACID TABLET (FP) PO SCH (10:14)
[2017-08-13] MEDS: NICOTINE 14 MG/24 HOURS TOPICAL PATCH TD SCH (10:15)
--- NOTE | 2017-08-13 10:40 | PN ---
S Progress Note Note: Patient was approached twice at bedside for interview. He told rfp writer that he did not need to see psychiatrist
[2017-08-13 10:47] LABS: HEMATOCRIT 41.3 % (35.4-49); HEMOGLOBIN 13.6 GM/dL (11.7-16.9); MCH 31.5 pg (25.7-33.7); MEAN CELL VOLUME 95.6 fl (80-96); PLATELET COUNT 157 K/MM3 (134-434); RBC 4.32 M/mm3 (4.00-5.60); RDW 14.1 % (11.9-15.9); WHITE BLOOD COUNT 6.7 K/mm3 (4.0-10.0)
[2017-08-13 10:59] LABS: CHLORIDE 105 mmol/L (98-107); POTASSIUM 3.9 mmol/L (3.5-5.1); SODIUM 143 mmol/L (136-145)
[2017-08-13 11:06] LABS: ALK PHOS 49 U/L (45-117); ANION GAP 11 (8-16); BILIRUBIN,TOTAL 0.6 mg/dL (0.2-1.0); BLOOD UREA NITROGEN 11 mg/dL (7-18); CALCIUM 8.3 mg/dL (8.5-10.1); CO2 27 mmol/L (21-32); CREATININE 1.1 mg/dL (0.7-1.3); GLUCOSE,RANDOM 101 mg/dL (74-106); SGOT/AST 16 U/L (15-37); SGPT/ALT 15 U/L (12-78); TOT PROT 6.1 g/dl (6.4-8.2)
[2017-08-13 12:18] LABS: RPR REACTIVE 1:8 (NONREACTIVE)
[2017-08-13 14:40] LABS: TREPONEMA ANTIBODY REACTIVE (NONREACTIVE)
--- NOTE | 2017-08-13 15:15 | PN ---
S CIWA - CIWA Score Nausea/Vomitin-Int. Nausea w/Dry Heave Muscle Tremors: 4-Moderate,w/Arms Extend Anxiety: 4-Mod. Anxious/Guarded Agitation: 4-Moderately Restless Paroxysmal Sweats: 3 Orientation: 0-Oriented Tacttile Disturbances: 1-Very Mild Itch/Numbness Auditory Disturbances: 0-None Visual Disturbances: 0-None Headache: 0-None Present CIWA-Ar Total Score: 20 BHS Progress Note (SOAP) Subjective: Interrupted sleep, anxious, sweating Objective: 08/13/17 15:14 Last Vital Signs Temp Pulse Resp BP Pulse Ox 95.5 F L 74 18 109/75 08/13/17 11:24 08/13/17 11:24 08/13/17 11:24 08/13/17 11:24 Laboratory Tests 08/13/17 08/13/17 08/13/17 08:00 08:00 08:00 WBC 6.7 RBC 4.32 Hgb 13.6 Hct 41.3 MCV 95.6 MCH 31.5 MCHC 33.0 RDW 14.1 Plt Count 157 MPV 11.0 Sodium 143 Potassium 3.9 Chloride 105 Carbon Dioxide 27 Anion Gap 11 BUN 11 Creatinine 1.1 Creat Clearance w eGFR > 60 Random Glucose 101 D Calcium 8.3 L Total Bilirubin 0.6 D AST 16 D ALT 15 D Alkaline Phosphatase 49 Total Protein 6.1 L Albumin 3.0 L D RPR Titer Reactive 1:8 H D T.pallidum Ab (MHA) Reactive HIV 1&2 Antibody Screen HIV P24 Antigen 08/13/17 08:00 WBC RBC Hgb Hct MCV MCH MCHC RDW Plt Count MPV Sodium Potassium Chloride Carbon Dioxide Anion Gap BUN Creatinine Creat Clearance w eGFR Random Glucose Calcium Total Bilirubin AST ALT Alkaline Phosphatase Total Protein Albumin RPR Titer T.pallidum Ab (MHA) HIV 1&2 Antibody Screen Negative HIV P24 Antigen Negative Labs noted: RPR Reactive 1:8, TPPA Reactive Assessment: 08/13/17 15:18 Withdrawal symptoms Noted with syphilis. Patient stated he found out last month and was treated then once with IM injection Plan: Continue detox Syphilis, most likely acute: treated last month as per patient; follow up with PCP for monitoring and further management if warranted
[2017-08-13] MEDS: THIAMINE HCL 100 MG TABLET (FP) PO SCH (22:08)
--- NOTE | 2017-08-14 00:10 | EKG ---
Test Reason : Blood Pressure : / mmHG Vent. Rate : 065 BPM Atrial Rate : 065 BPM P-R Int : 126 ms QRS Dur : 088 ms QT Int : 396 ms P-R-T Axes : -24 072 041 degrees QTc Int : 411 ms NORMAL SINUS RHYTHM EARLY REPOLARIZATION NORMAL ECG WHEN COMPARED WITH ECG OF 15-FEB-2017 14:56, NO SIGNIFICANT CHANGE WAS FOUND Confirmed by TOSHIA GRIMALDO MD ([id number]) on 08/14/2017 12:10:19 AM Referred By: Confirmed By:TOSHIA GRIMALDO MD
[2017-08-14] MEDS: chlordiazePOXIDE HCL 25 MG CAPSULE PO SCH ×3 (06:06→17:07)
[2017-08-14] MEDS: PRENATAL VITAMINS W/ FOLIC ACID TABLET (FP) PO SCH (10:36)
[2017-08-14] MEDS: NICOTINE 14 MG/24 HOURS TOPICAL PATCH TD SCH (10:36)
--- NOTE | 2017-08-14 11:47 | PN ---
S CIWA - CIWA Score Nausea/Vomitin Muscle Tremors: 4-Moderate,w/Arms Extend Anxiety: 3 Agitation: 3 Paroxysmal Sweats: 3 Orientation: 0-Oriented Tacttile Disturbances: 0-None Auditory Disturbances: 0-None Visual Disturbances: 0-None Headache: 0-None Present CIWA-Ar Total Score: 15 S Progress Note (SOAP) Subjective: Shakes sleep disturbance Sweats Objective: 08/14/17 11:46 Tremors Sleeping , arouses to verbal stimuli, A & O x 3 Vital Signs Temperature 96.7 F L 08/14/17 09:25 Pulse Rate 81 08/14/17 09:25 Respiratory Rate 18 08/14/17 09:25 Blood Pressure 131/82 08/14/17 09:25 O2 Sat by Pulse Oximetry (%) Assessment: 08/14/17 11:46 withdrawal sx Syphyllis addressed by last provider Plan: Continue detox
[2017-08-14 14:15] LABS: URINE APPEARANCE CLEAR; URINE BILIRUBIN NEGATIVE (NEGATIVE); URINE BLOOD NEGATIVE (NEGATIVE); URINE COLOR LTYELLOW; URINE GLUCOSE (UA) 1+ (NEGATIVE); URINE KETONE NEGATIVE (NEGATIVE); URINE LEUK ESTERASE NEGATIVE (NEGATIVE); URINE NITRITE NEGATIVE (NEGATIVE); URINE PROTEIN NEGATIVE (NEGATIVE); URINE UROBILINOGEN NEGATIVE mg/dL (0.2-1.0)
[2017-08-14] MEDS: THIAMINE HCL 100 MG TABLET (FP) PO SCH (22:38)
[2017-08-14] MEDS: chlordiazePOXIDE 5 MG CAPSULE PO SCH (22:38)
[2017-08-15] MEDS: chlordiazePOXIDE 5 MG CAPSULE PO SCH (05:41)
[2017-08-15 09:29] VITALS: BP 116/73; PULSE 86; TEMP 96.2
[2017-08-15] MEDS ORDERED: chlordiazePOXIDE HCL 10 MG CAPSULE PO SCH ×2 (11:00→23:00)
--- NOTE | 2017-08-15 13:54 | PN ---
BHS Progress Note (SOAP) Subjective: Patient denies current Detox symptoms and reports that he is feeling well overall. Objective: PATIENT A & O X 3, OBSERVED AMBULATING ON UNIT. NO ACUTE DISTRESS. 08/15/17 13:57 Vital Signs Temperature 96.2 F L 08/15/17 09:28 Pulse Rate 86 08/15/17 09:28 Respiratory Rate 18 08/15/17 09:28 Blood Pressure 116/73 08/15/17 09:28 O2 Sat by Pulse Oximetry (%) Laboratory Tests 08/13/17 08/13/17 08/13/17 08:00 08:00 08:00 WBC 6.7 RBC 4.32 Hgb 13.6 Hct 41.3 MCV 95.6 MCH 31.5 MCHC 33.0 RDW 14.1 Plt Count 157 MPV 11.0 Sodium 143 Potassium 3.9 Chloride 105 Carbon Dioxide 27 Anion Gap 11 BUN 11 Creatinine 1.1 Creat Clearance w eGFR > 60 Random Glucose 101 D Calcium 8.3 L Total Bilirubin 0.6 D AST 16 D ALT 15 D Alkaline Phosphatase 49 Total Protein 6.1 L Albumin 3.0 L D Urine Color Urine Appearance Urine pH Ur Specific [place] Urine Protein Urine Glucose (UA) Urine Ketones Urine Blood Urine Nitrite Urine Bilirubin Urine Urobilinogen Ur Leukocyte Esterase RPR Titer Reactive 1:8 H D T.pallidum Ab (MHA) Reactive HIV 1&2 Antibody Screen HIV P24 Antigen 08/13/17 08/14/17 08:00 09:50 WBC RBC Hgb Hct MCV MCH MCHC RDW Plt Count MPV Sodium Potassium Chloride Carbon Dioxide Anion Gap BUN Creatinine Creat Clearance w eGFR Random Glucose Calcium Total Bilirubin AST ALT Alkaline Phosphatase Total Protein Albumin Urine Color Ltyellow Urine Appearance Clear Urine pH 7.0 D Ur Specific [place] 1.020 Urine Protein Negative Urine Glucose (UA) 1+ H Urine Ketones Negative Urine Blood Negative Urine Nitrite Negative Urine Bilirubin Negative Urine Urobilinogen Negative Ur Leukocyte Esterase Negative RPR Titer T.pallidum Ab (MHA) HIV 1&2 Antibody Screen Negative HIV P24 Antigen Negative LABS NOTED. Assessment: 08/15/17 13:58 COMPLETION OF DETOX REGIMEN. 08/15/17 13:58 Plan: PATIENT SCHEDULED FOR DISCHARGE TODAY. PATIENT MEDICALLY STABLE.
--- NOTE | 2017-08-15 13:56 | DS ---
[facility] Detox Discharge Summary Admission Date: 08/12/17 Discharge Date: 08/15/17 - History Present History: Alcohol Dependence, Cannabis Dependence, Cocaine Dependence Additional Comments: AT TIME OF DISCHARGE, PATIENT DENIES CURRENT DETOX SYMPTOMS AND REPORTS THAT HE IS FEELING WELL OVERALL. PATIENT RETURNING HOME. PATIENT ADVISED TO CONSIDER LOCAL 12-STEP / NA/ AA OUTPATIENT SUPPORT GROUP FOR AFTERCARE. PATIENT WAS DISCHARGED FROM DETOX UNIT IN STABLE MEDICAL CONDITION. Pertinent Past History: Asthma, Depression, Bipolar Disorder. - Physical Exam Results Vital Signs: Vital Signs Temperature 96.2 F L 08/15/17 09:28 Pulse Rate 86 08/15/17 09:28 Respiratory Rate 18 08/15/17 09:28 Blood Pressure 116/73 08/15/17 09:28 O2 Sat by Pulse Oximetry (%) Pertinent Admission Physical Exam Findings: WITHDRAWAL SYMPTOMS. Laboratory Tests 08/13/17 08/13/17 08/13/17 08:00 08:00 08:00 WBC 6.7 RBC 4.32 Hgb 13.6 Hct 41.3 MCV 95.6 MCH 31.5 MCHC 33.0 RDW 14.1 Plt Count 157 MPV 11.0 Sodium 143 Potassium 3.9 Chloride 105 Carbon Dioxide 27 Anion Gap 11 BUN 11 Creatinine 1.1 Creat Clearance w eGFR > 60 Random Glucose 101 D Calcium 8.3 L Total Bilirubin 0.6 D AST 16 D ALT 15 D Alkaline Phosphatase 49 Total Protein 6.1 L Albumin 3.0 L D Urine Color Urine Appearance Urine pH Ur Specific [place] Urine Protein Urine Glucose (UA) Urine Ketones Urine Blood Urine Nitrite Urine Bilirubin Urine Urobilinogen Ur Leukocyte Esterase RPR Titer Reactive 1:8 H D T.pallidum Ab (MHA) Reactive HIV 1&2 Antibody Screen HIV P24 Antigen 08/13/17 08/14/17 08:00 09:50 WBC RBC Hgb Hct MCV MCH MCHC RDW Plt Count MPV Sodium Potassium Chloride Carbon Dioxide Anion Gap BUN Creatinine Creat Clearance w eGFR Random Glucose Calcium Total Bilirubin AST ALT Alkaline Phosphatase Total Protein Albumin Urine Color Ltyellow Urine Appearance Clear Urine pH 7.0 D Ur Specific [place] 1.020 Urine Protein Negative Urine Glucose (UA) 1+ H Urine Ketones Negative Urine Blood Negative Urine Nitrite Negative Urine Bilirubin Negative Urine Urobilinogen Negative Ur Leukocyte Esterase Negative RPR Titer T.pallidum Ab (MHA) HIV 1&2 Antibody Screen Negative HIV P24 Antigen Negative LABS NOTED. - Treatment Hospital Course: Detox Protocol Followed, Detoxed Safely, Responded well, Discharged Condition Good Patient has Accepted a Rehab Referral to: PT RETURNING HOME, ADVISED TO CONSIDER LOCAL 12-STEP/NA/AA SUPPORT GROUPS. - Medication Discharge Medications: Ambulatory Orders NK [No Known Home Medication] 08/12/17 - Diagnosis (1) PCP (phencyclidine) abuse Status: Acute (2) Asthma Status: Chronic (3) Bipolar disorder Status: Chronic (4) Cannabis dependence Status: Chronic (5) Cocaine dependence Status: Chronic Qualifiers: Substance use status: uncomplicated Qualified Code(s): F14.20 - Cocaine dependence, uncomplicated (6) Marihuana dependence Status: Chronic (7) Nicotine dependence Status: Chronic Qualifiers: Nicotine product type: cigarettes Substance use status: uncomplicated Qualified Code(s): F17.210 - Nicotine dependence, cigarettes, uncomplicated (8) Alcohol dependence with uncomplicated withdrawal Status: Acute - AMA Did Patient Leave Against Medical Advice: No
== END 2017-08-15 09:36 | disposition home or self-care (01) | DRG 774 ==
LOC: YASAS 13:13 → Y3N 18:05
PROVIDERS: ADMIT Internal Medicine; ATTEND Internal Medicine
PROC: HZ2ZZZZ Detoxification Services for Substance Abuse Treatment (ICD-10-PCS; principal; 2017-08-12)
DX: F10.230 Alcohol dependence with withdrawal, uncomplicated (principal); F14.20 Cocaine dependence, uncomplicated; F16.10 Hallucinogen abuse, uncomplicated; F17.210 Nicotine dependence, cigarettes, uncomplicated; F31.9 Bipolar disorder, unspecified; J45.909 Unspecified asthma, uncomplicated; F12.20 Cannabis dependence, uncomplicated
CPT/HCPCS: 36415; 80053; 81003; 85027; 86593; 86780; 87389; 93005; 93010

== ENCOUNTER 2019-12-10 12:02 | Inpatient (IN) | payer OTHER ==
--- NOTE | 2019-12-10 12:32 | BHS.RME ---
Substance Use & Tx History - Substance Use History Alcohol Substance amount: 2 glasses wine Frequency of use: Daily Substance route: Oral Date of Last Use: 12/09/19 Cocaine- Powder Substance amount: 1 gram Frequency of use: Daily Substance route: Inhalation (ex: sniffing or snorting) Date of Last Use: 12/08/19 Marijuana/Hashish Substance amount: $80 Frequency of use: Daily Substance route: Oral Date of Last Use: 12/10/19 CIWA Nausea/Vomitin-Mild Nausea/No Vomiting Muscle Tremors: 1-None Visible, but [place] Anxiety: 0-No Anxiety, at Ease Agitation: 0-Normal Activity Paroxysmal Sweats: No Perspiration Orientation: 0-Oriented Tacttile Disturbances: 0-None Auditory Disturbances: 0-None Visual Disturbances: 0-None Headache: 0-None Present CIWA-Ar Total Score: 2
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
[2019-12-10] MEDS ORDERED: NICOTINE POLACRILEX 2 MG GUM BUC PRN (12:45)
[2019-12-10] MEDS ORDERED: MAG HYDROX/AL HYDROX/SIMETH 30 ML UNIT-DOSE CUP PO PRN (12:45)
[2019-12-10] MEDS ORDERED: MAGNESIUM HYDROX 2400MG/30ML ORAL SUSPENSION 30 ML CUP PO PRN (12:45)
[2019-12-10] MEDS ORDERED: ACETAMINOPHEN 325 MG TABLET (FP) PO PRN ×2 (12:45)
[2019-12-10] MEDS ORDERED: IBUPROFEN 400 MG TABLET (FP) PO PRN (12:45)
[2019-12-10] MEDS ORDERED: MAGNESIUM CITRATE 300 ML BOTTLE PO PRN (12:45)
[2019-12-10] MEDS ORDERED: BISMUTH SUBSALICYLATE 524 MG/30 ML UD PO PRN (12:45)
[2019-12-10] MEDS ORDERED: MENTHOL/PHENOL 1 EACH UD MM PRN (12:45)
[2019-12-10] MEDS ORDERED: METHOCARBAMOL 500 MG TABLET PO PRN (12:45)
[2019-12-10 13:48] VITALS: BMI 21.2
[2019-12-10] MEDS: chlordiazePOXIDE HCL 25 MG CAPSULE PO PRN (14:56)
[2019-12-10] MEDS: hydrOXYzine PAMOATE 25 MG CAPSULE (FP) PO SCH ×3 (14:57→22:07)
[2019-12-10 16:51] LABS: HEMATOCRIT 48.5 % (35.4-49); HEMOGLOBIN 16.4 GM/dL (11.7-16.9); MCH 32.4 pg (25.7-33.7); MCHC 33.9 g/dl (32.0-35.9); MEAN CELL VOLUME 95.5 fl (80-96); MEAN PLT VOLUME 12.9 fl (7.5-11.1); PLATELET COUNT 180 K/MM3 (134-434); RBC 5.08 M/mm3 (4.00-5.60); RDW 13.5 % (11.9-15.9); WHITE BLOOD COUNT 9.5 K/mm3 (4.0-10.0)
[2019-12-10 17:00] LABS: ALBUMIN 4.1 g/dl (3.4-5.0); BLOOD UREA NITROGEN 17.4 mg/dL (7-18); CALCIUM 9.5 mg/dL (8.5-10.1); CREATININE 1.1 mg/dL (0.55-1.3); TOT PROT 8.1 g/dl (6.4-8.2)
[2019-12-10] MEDS: chlordiazePOXIDE HCL 25 MG CAPSULE PO SCH ×2 (17:12→22:09)
--- NOTE | 2019-12-10 18:05 | PN ---
[facility] Progress Note Note: Psychiatry Attending's note : Bedside visit. Psychiatric interview deferred. Patient found asleep. Resting comfortably. No evidence of distress.
[2019-12-10] MEDS: THIAMINE HCL 100 MG TABLET (FP) PO SCH (22:07)
[2019-12-10] MEDS: MELATONIN 5 MG TABLETS PO SCH (22:08)
[2019-12-11] MEDS: chlordiazePOXIDE HCL 25 MG CAPSULE PO SCH ×5 (05:41→22:16)
[2019-12-11] MEDS: hydrOXYzine PAMOATE 25 MG CAPSULE (FP) PO SCH ×6 (05:41→22:13)
--- NOTE | 2019-12-11 10:29 | PN ---
S CIWA - CIWA Score Nausea/Vomitin-Mild Nausea/No Vomiting Muscle Tremors: 3 Anxiety: 3 Agitation: 0-Normal Activity Paroxysmal Sweats: 1-Minimal Palms Moist Orientation: 0-Oriented Tacttile Disturbances: 0-None Auditory Disturbances: 0-None Visual Disturbances: 2-Mild Sensitivity Headache: 2-Mild CIWA-Ar Total Score: 12 S Progress Note (SOAP) Subjective: 24 years old male admitted on 12/10/19 for alcohol withdrawal sx management treating with librium detox regiment bp elevation Vital Signs - 24 hr 12/10/19 12/10/19 12/10/19 12:02 13:53 14:46 Temperature 98.3 F 97.1 F L Pulse Rate 98 H 101 H Respiratory 18 18 Rate Blood Pressure 135/89 159/109 H O2 Sat by Pulse 98 98 Oximetry (%) 12/10/19 12/10/19 12/10/19 14:47 16:50 21:10 Temperature 96.6 F L 97.3 F L Pulse Rate 65 55 L Respiratory 18 18 Rate Blood Pressure 147/84 155/94 O2 Sat by Pulse 95 100 Oximetry (%) 12/11/19 12/11/19 06:19 08:38 Temperature 97.7 F 97.3 F L Pulse Rate 63 73 Respiratory 18 18 Rate Blood Pressure 149/90 148/96 O2 Sat by Pulse 100 100 Oximetry (%) amlodipine 5 mg po initiated Objective: 12/11/19 10:51 Vital Signs - 24 hr 12/10/19 12/10/19 12/10/19 12:02 13:53 14:46 Temperature 98.3 F 97.1 F L Pulse Rate 98 H 101 H Respiratory 18 18 Rate Blood Pressure 135/89 159/109 H O2 Sat by Pulse 98 98 Oximetry (%) 12/10/19 12/10/19 12/10/19 14:47 16:50 21:10 Temperature 96.6 F L 97.3 F L Pulse Rate 65 55 L Respiratory 18 18 Rate Blood Pressure 147/84 155/94 O2 Sat by Pulse 95 100 Oximetry (%) 12/11/19 12/11/19 06:19 08:38 Temperature 97.7 F 97.3 F L Pulse Rate 63 73 Respiratory 18 18 Rate Blood Pressure 149/90 148/96 O2 Sat by Pulse 100 100 Oximetry (%) Laboratory Tests 12/10/19 12/10/19 12/10/19 13:15 13:15 13:15 WBC 9.5 RBC 5.08 Hgb 16.4 Hct 48.5 D MCV 95.5 MCH 32.4 MCHC 33.9 RDW 13.5 Plt Count 180 MPV 12.9 H D Sodium 137 Potassium 4.0 Chloride 102 Carbon Dioxide 27 Anion Gap 8 BUN 17.4 Creatinine 1.1 Est GFR (CKD-EPI)AfAm 106.81 Est GFR (CKD-EPI)NonAf 92.16 Random Glucose 94 Calcium 9.5 Total Bilirubin 2.0 H AST 58 H ALT 31 Alkaline Phosphatase 68 Total Protein 8.1 Albumin 4.1 Syphilis Serology Reactive A* 12/11/19 10:52 rpr ratio pending Assessment: 12/11/19 10:52 alcohol withdrawal Plan: librium regiment
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
[2019-12-11] MEDS: NICOTINE 7 MG/24 HOURS TOPICAL PATCH TD SCH (10:42)
[2019-12-11] MEDS: PRENATAL VITAMINS W/ FOLIC ACID TABLET (FP) PO SCH (10:42)
[2019-12-11] MEDS ORDERED: cloNIDine HCL 0.1 MG TABLET PO PRN (10:50)
[2019-12-11] MEDS: amLODIPine BESYLATE 5 MG TABLET (FP) PO SCH (12:04)
[2019-12-11] MEDS: ONDANSETRON *ODT* 4 MG TABLET SL PRN (18:51)
[2019-12-11] MEDS: chlordiazePOXIDE HCL 25 MG CAPSULE PO PRN (20:58)
[2019-12-11] MEDS: DIVALPROEX SODIUM 250 MG TABLET E.C. PO SCH (22:14)
[2019-12-11] MEDS: THIAMINE HCL 100 MG TABLET (FP) PO SCH (22:14)
[2019-12-11] MEDS: QUEtiapine FUMARATE 100 MG TABLET (FP) PO SCH (22:14)
[2019-12-11] MEDS: MELATONIN 5 MG TABLETS PO SCH (22:14)
[2019-12-12] MEDS: chlordiazePOXIDE HCL 25 MG CAPSULE PO SCH ×4 (06:16→22:05)
[2019-12-12] MEDS: hydrOXYzine PAMOATE 25 MG CAPSULE (FP) PO SCH ×2 (06:16→10:25)
[2019-12-12] MEDS ORDERED: ONDANSETRON *ODT* 4 MG TABLET SL ONE (09:01)
[2019-12-12] MEDS ORDERED: TRIMETHOBENZAMIDE HCL 200MG/2ML INJ IM ONE (09:03)
--- NOTE | 2019-12-12 10:22 | PN ---
S CIWA - CIWA Score Nausea/Vomitin Muscle Tremors: 1-None Visible, but [place] Anxiety: 2 Agitation: 4-Moderately Restless Paroxysmal Sweats: No Perspiration Orientation: 0-Oriented Tacttile Disturbances: 0-None Auditory Disturbances: 0-None Visual Disturbances: 0-None Headache: 0-None Present CIWA-Ar Total Score: 9 [facility] Progress Note (SOAP) Subjective: 24 years old male admitted on 12/10/19 for alcohol withdrawal sx management treating with librium detox regiment vomited x 1 tigan 200mg IM x 1 nausea zofran sl 8 mg x 1 mr castellon demands a shot for vomiting later mr castellon perfers oral sl for vomiting good effect no vomiting tolerates sl medication well Objective: 12/12/19 10:24 Vital Signs - 24 hr 12/11/19 12/11/19 12/11/19 12:29 16:52 20:35 Temperature 98 F 97.3 F L 97.3 F L Pulse Rate 72 57 L 66 Respiratory 18 16 16 Rate Blood Pressure 114/83 141/89 149/93 O2 Sat by Pulse 100 100 100 Oximetry (%) 12/12/19 08:32 Temperature 97.2 F L Pulse Rate 56 L Respiratory 18 Rate Blood Pressure 135/88 O2 Sat by Pulse Oximetry (%) Laboratory Tests 12/10/19 12/10/19 12/10/19 13:15 13:15 13:15 WBC 9.5 RBC 5.08 Hgb 16.4 Hct 48.5 D MCV 95.5 MCH 32.4 MCHC 33.9 RDW 13.5 Plt Count 180 MPV 12.9 H D Sodium 137 Potassium 4.0 Chloride 102 Carbon Dioxide 27 Anion Gap 8 BUN 17.4 Creatinine 1.1 Est GFR (CKD-EPI)AfAm 106.81 Est GFR (CKD-EPI)NonAf 92.16 Random Glucose 94 Calcium 9.5 Total Bilirubin 2.0 H AST 58 H ALT 31 Alkaline Phosphatase 68 Total Protein 8.1 Albumin 4.1 Syphilis Serology Reactive A* RPR Titer COVID-19 (KAE) 12/10/19 12/10/19 13:15 15:00 WBC RBC Hgb Hct MCV MCH MCHC RDW Plt Count MPV Sodium Potassium Chloride Carbon Dioxide Anion Gap BUN Creatinine Est GFR (CKD-EPI)AfAm Est GFR (CKD-EPI)NonAf Random Glucose Calcium Total Bilirubin AST ALT Alkaline Phosphatase Total Protein Albumin Syphilis Serology RPR Titer Reactive 1:1 H D COVID-19 (KAE) Not detected lab noted Assessment: 12/12/19 10:25 alcohol withdrawal anxiety Plan: librium regiment increase vistaril to 50 mg po q6h
[2019-12-12] MEDS: amLODIPine BESYLATE 5 MG TABLET (FP) PO SCH (10:25)
[2019-12-12] MEDS: DIVALPROEX SODIUM 250 MG TABLET E.C. PO SCH ×2 (10:25→22:05)
[2019-12-12] MEDS: QUEtiapine FUMARATE 100 MG TABLET (FP) PO SCH (10:25)
[2019-12-12] MEDS: NICOTINE 7 MG/24 HOURS TOPICAL PATCH TD SCH (10:26)
[2019-12-12] MEDS: PRENATAL VITAMINS W/ FOLIC ACID TABLET (FP) PO SCH (10:26)
[2019-12-12] MEDS: hydrOXYzine PAMOATE 50 MG CAPSULE (FP) PO SCH ×3 (11:19→22:05)
--- NOTE | 2019-12-12 13:31 | PN ---
Psychiatric Progress Note Vital Signs: Vital Signs Period Temp Pulse Resp BP Sys/Cummins Pulse Ox Last 24 Hr 97.2 F-97.3 F 56-66 16-18 135-149/88-93 100-100 Date of Session: 12/12/19 Chief Complaint:: "I have a mental health issues and i need SSI." HPI: Patient admitted to for alcohol, cannabis, crack/cocaine, heroin, nicotine dependence co-morbid Bipolar disorder. ROS: Patient is ambulatory, alert +oriented X3. Current Medications: Active Medications Generic Name Dose Route Start Last Admin Trade Name Freq PRN Reason Stop Dose Admin Acetaminophen 650 mg 12/10/19 12:45 Tylenol - PO Q6H PRN PAIN LEVEL 4 - 6 Acetaminophen 650 mg 12/10/19 12:45 Tylenol - PO Q6H PRN FEVER Al Hydroxide/Mg Hydroxide 30 ml 12/10/19 12:45 Mylanta Oral Suspension - PO Q6H PRN DYSPEPSIA Amlodipine Besylate 5 mg 12/11/19 11:00 12/12/19 10:25 Norvasc - PO 5 mg DAILY ANGIE Administration Chlordiazepoxide HCl 25 mg 12/12/19 05:00 12/12/19 10:25 Librium - PO 12/12/19 23:01 25 mg [id number] ANGIE Administration Chlordiazepoxide HCl 25 mg 12/10/19 12:45 12/11/19 20:58 Librium - PO 12/12/19 23:59 25 mg Q4H PRN Administration WITHDRAWAL(CONT SUBST) Chlordiazepoxide HCl 10 mg 12/13/19 05:00 Librium - PO 12/13/19 23:01 [id number] ANGIE Chlordiazepoxide HCl 10 mg 12/14/19 05:00 Librium - PO 12/14/19 17:01 Q12H NAGIE Chlordiazepoxide HCl 10 mg 12/13/19 00:00 Librium - PO 12/14/19 00:00 Q4H PRN WITHDRAWAL(CONT SUBST) Chlordiazepoxide HCl 10 mg 12/15/19 05:00 Librium - PO 12/15/19 05:01 ONCE@0500 ONE Clonidine 0.1 mg 12/11/19 10:50 12/12/19 13:17 Catapres - PO 0.1 mg Q6H PRN Administration HYPERTENSION Divalproex Sodium 250 mg 12/11/19 22:00 12/12/19 10:25 Depakote - PO 250 mg BID ANGIE Administration Eucalyptus/Menthol/Phenol/Sorbitol 1 each 12/10/19 12:45 Cepastat Lozenge - MM 12/16/19 12:45 Q4H PRN SORE THROAT Hydroxyzine Pamoate 50 mg 12/12/19 11:00 12/12/19 11:19 Vistaril - PO 50 mg Q6H ANGIE Administration Ibuprofen 400 mg 12/10/19 12:45 Motrin - PO Q6H PRN PAIN LEVEL 1 - 3 Magnesium Citrate 300 ml 12/10/19 12:45 Citroma - PO Q48H PRN CONSTIPATION Magnesium Hydroxide 30 ml 12/10/19 12:45 Milk Of Magnesia - PO PRN PRN CONSTIPATION Melatonin 5 mg 12/10/19 22:00 12/11/19 22:14 Melatonin PO 5 mg HS ANGIE Administration Methocarbamol 500 mg 12/10/19 12:45 12/12/19 13:17 Robaxin - PO 12/16/19 12:45 500 mg Q6H PRN Administration MUSCLE SPASMS Nicotine 7 mg 12/11/19 10:00 12/12/19 10:26 Nicoderm Patch - TD 7 mg DAILY ANGIE Administration Nicotine Polacrilex 2 mg 12/10/19 12:45 Nicorette Gum - BUC Q2H PRN NICOTINE REPLACEMENT RX Ondansetron HCl 4 mg 12/10/19 12:45 12/11/19 18:51 Zofran Odt - SL 12/16/19 12:46 4 mg TID PRN Administration Nausea/Vomiting Multivit/Folic Acid/Iron 1 tab 12/11/19 10:00 12/12/19 10:26 Vitamins (Sjr) - PO 1 tab DAILY ANGIE Administration Quetiapine Fumarate 100 mg 12/13/19 10:00 Seroquel - PO DAILY ANGIE Thiamine HCl 100 mg 12/10/19 22:00 12/11/19 22:14 Vitamin B1 - PO 100 mg HS ANGIE Administration Medication(s) Change(s): Yes. Will d/c Seroquel 100mg BID. Will order Seroquel 100mg daily + 200mg HS. Current Side Effect: No Lab tests ordered: No Provider note:: Chart reviewed. Dr. Miguel note read and appreciated. Consultation ordered due to patient's labile behavior in the morning in which st aff reported that patient was agitated, demanding, restless, and raising his voice at staff. Upon approach patient was calm and cooperative. Patient reports history of bipolar disorder and past treatment with depakote and seroquel. He reports concerns with his history of mood instability and is aware that he needs to address his mental health issues. Throughout conversation with patient he mentioned the need to obtain SSI on several occasions. As per staff patient is labile and became agitated earlier in the morning which resulted in security being called to the unit. Patient in agreement to accept an increase dose of seroquel in the evening for mood stabilization. Depakote dose will not be increased at this time due to patient appearing mildly fatigue and did report feeling tired due to the medications received. Total face to face time:: 25 Mental Status Exam - Mental Status Exam Alert and Oriented to: Time, Place, Person Cognitive Function: Good Patient Appearance: Well Groomed Patient Behavior: Fatigued, Cooperative (superfically cooperative) Speech Pattern: Appropriate Voice Loudness: Normal Thought Process: Goal Oriented Thought Disorder: Not Present Hallucinations: Denies Suicidal Ideation: Denies Homicidal Ideation: Denies Insight/Judgement: Poor Sleep: Fair Appetite: Fair Muscle strength/Tone: Normal Gait/Station: Normal Psychiatric Treatment Plan - Problem List (1) Alcohol dependence with uncomplicated withdrawal Current Visit: Yes (2) Bipolar disorder Current Visit: Yes (3) Cannabis dependence Current Visit: Yes (4) Cocaine dependence Current Visit: Yes Qualifiers: Substance use status: uncomplicated Qualified Code(s): F14.20 - Cocaine dependence, uncomplicated (5) Nicotine dependence Current Visit: Yes Qualifiers: Nicotine product type: cigarettes Substance use status: uncomplicated Qualified Code(s): F17.210 - Nicotine dependence, cigarettes, uncomplicated (6) Substance induced mood disorder Current Visit: Yes
[2019-12-12] MEDS ORDERED: QUEtiapine FUMARATE 200 MG TABLET PO SCH (22:00)
[2019-12-12] MEDS: THIAMINE HCL 100 MG TABLET (FP) PO SCH (22:05)
[2019-12-12] MEDS: MELATONIN 5 MG TABLETS PO SCH (22:05)
[2019-12-13] MEDS ORDERED: chlordiazePOXIDE HCL 10 MG CAPSULE PO PRN
[2019-12-13] MEDS: chlordiazePOXIDE HCL 10 MG CAPSULE PO SCH ×3 (06:05→16:57)
[2019-12-13] MEDS: hydrOXYzine PAMOATE 50 MG CAPSULE (FP) PO SCH ×3 (06:05→16:57)
[2019-12-13] MEDS ORDERED: QUEtiapine FUMARATE 100 MG TABLET (FP) PO SCH (10:00)
[2019-12-13] MEDS: amLODIPine BESYLATE 5 MG TABLET (FP) PO SCH (10:13)
[2019-12-13] MEDS: NICOTINE 7 MG/24 HOURS TOPICAL PATCH TD SCH (10:13)
[2019-12-13] MEDS: PRENATAL VITAMINS W/ FOLIC ACID TABLET (FP) PO SCH (10:13)
[2019-12-13] MEDS: DIVALPROEX SODIUM 250 MG TABLET E.C. PO SCH (10:13)
[2019-12-13] MEDS: ONDANSETRON *ODT* 4 MG TABLET SL PRN (10:15)
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
[2019-12-13 13:18] VITALS: TEMP 97.3
--- NOTE | 2019-12-13 17:03 | PN ---
[facility] Progress Note Note: Psychiatry Attending's note : Patient continues to be : irritable, loquacious, argumentative. Constantly moving around. Labile mood. Intervention: depakote is raised to 500 mg po bid seroquel titrated to 200 mg po bid. With the patient's consent.
[2019-12-13 17:29] VITALS: BP 122/77; PULSE 77
--- NOTE | 2019-12-13 18:38 | PN ---
[facility] Progress Note Note: Patient upset. States I have to leave. Denies current withdrawal symptoms. Alert and oriented. Gait steady. No tremors noted. Respiration quiet and unlabored. Pulse Ox = 99% Abd soft/non-tender Vital Signs 12/13/19 12/13/19 12:36 16:55 Temperature 97.3 F L 97.3 F L Pulse Rate 71 77 Respiratory 18 20 Rate Blood Pressure 133/78 122/77 O2 Sat by Pulse 100 Oximetry (%) Laboratory Last Values WBC 9.5 K/mm3 (4.0-10.0) 12/10/19 13:15 RBC 5.08 M/mm3 (4.00-5.60) 12/10/19 13:15 Hgb 16.4 GM/dL (11.7-16.9) 12/10/19 13:15 Hct 48.5 % (35.4-49) D 12/10/19 13:15 MCV 95.5 fl (80-96) 12/10/19 13:15 MCH 32.4 pg (25.7-33.7) 12/10/19 13:15 MCHC 33.9 g/dl (32.0-35.9) 12/10/19 13:15 RDW 13.5 % (11.9-15.9) 12/10/19 13:15 Plt Count 180 K/MM3 (134-434) 12/10/19 13:15 MPV 12.9 fl (7.5-11.1) H D 12/10/19 13:15 Sodium 137 mmol/L (136-145) 12/10/19 13:15 Potassium 4.0 mmol/L (3.5-5.1) 12/10/19 13:15 Chloride 102 mmol/L (98-107) 12/10/19 13:15 Carbon Dioxide 27 mmol/L (21-32) 12/10/19 13:15 Anion Gap 8 MMOL/L (8-16) 12/10/19 13:15 BUN 17.4 mg/dL (7-18) 12/10/19 13:15 Creatinine 1.1 mg/dL (0.55-1.3) 12/10/19 13:15 Est GFR (CKD-EPI)AfAm 106.81 12/10/19 13:15 Est GFR (CKD-EPI)NonAf 92.16 12/10/19 13:15 Random Glucose 94 mg/dL (74-106) 12/10/19 13:15 Calcium 9.5 mg/dL (8.5-10.1) 12/10/19 13:15 Total Bilirubin 2.0 mg/dL (0.2-1) H 12/10/19 13:15 AST 58 U/L (15-37) H 12/10/19 13:15 ALT 31 U/L (13-61) 12/10/19 13:15 Alkaline Phosphatase 68 U/L (45-117) 12/10/19 13:15 Total Protein 8.1 g/dl (6.4-8.2) 12/10/19 13:15 Albumin 4.1 g/dl (3.4-5.0) 12/10/19 13:15 Syphilis Serology Reactive (NONREACTIVE) A* 12/10/19 13:15 RPR Titer Reactive 1:1 (NONREACTIVE) H D 12/10/19 13:15 COVID-19 ([facility]) Not detected (Not Detected) 12/10/19 15:00 Lbs reviewed. Declined NRT. Encourage to consider rehab or outpatient program. Discussed overdose risks r/t loss of tolerance. Discharge orders submitted.
--- NOTE | 2019-12-13 18:39 | DS ---
[facility] Detox Discharge Summary Admission Date: 12/10/19 Discharge Date: 12/13/19 - History Present History: Alcohol Dependence, Cannabis Dependence, Cocaine Dependence Additional Comments: Alcohol use disorder Cocaine Use disorder Cannabis use disorder Nicotine use disorder Pertinent Past History: PMH: Gastritis, Asthma, Back and knee pain, syphilis MHHx: Insomnia, Bipolar, - Physical Exam Results Vital Signs: Vital Signs Temperature 97.3 F L 12/13/19 16:55 Pulse Rate 77 12/13/19 16:55 Respiratory Rate 20 12/13/19 16:55 Blood Pressure 122/77 12/13/19 16:55 O2 Sat by Pulse Oximetry (%) 100 12/13/19 12:36 Pertinent Admission Physical Exam Findings: Admitted with alcohol withdrawal symptoms Laboratory Last Values WBC 9.5 K/mm3 (4.0-10.0) 12/10/19 13:15 RBC 5.08 M/mm3 (4.00-5.60) 12/10/19 13:15 Hgb 16.4 GM/dL (11.7-16.9) 12/10/19 13:15 Hct 48.5 % (35.4-49) D 12/10/19 13:15 MCV 95.5 fl (80-96) 12/10/19 13:15 MCH 32.4 pg (25.7-33.7) 12/10/19 13:15 MCHC 33.9 g/dl (32.0-35.9) 12/10/19 13:15 RDW 13.5 % (11.9-15.9) 12/10/19 13:15 Plt Count 180 K/MM3 (134-434) 12/10/19 13:15 MPV 12.9 fl (7.5-11.1) H D 12/10/19 13:15 Sodium 137 mmol/L (136-145) 12/10/19 13:15 Potassium 4.0 mmol/L (3.5-5.1) 12/10/19 13:15 Chloride 102 mmol/L (98-107) 12/10/19 13:15 Carbon Dioxide 27 mmol/L (21-32) 12/10/19 13:15 Anion Gap 8 MMOL/L (8-16) 12/10/19 13:15 BUN 17.4 mg/dL (7-18) 12/10/19 13:15 Creatinine 1.1 mg/dL (0.55-1.3) 12/10/19 13:15 Est GFR (CKD-EPI)AfAm 106.81 12/10/19 13:15 Est GFR (CKD-EPI)NonAf 92.16 12/10/19 13:15 Random Glucose 94 mg/dL (74-106) 12/10/19 13:15 Calcium 9.5 mg/dL (8.5-10.1) 12/10/19 13:15 Total Bilirubin 2.0 mg/dL (0.2-1) H 12/10/19 13:15 AST 58 U/L (15-37) H 12/10/19 13:15 ALT 31 U/L (13-61) 12/10/19 13:15 Alkaline Phosphatase 68 U/L (45-117) 12/10/19 13:15 Total Protein 8.1 g/dl (6.4-8.2) 12/10/19 13:15 Albumin 4.1 g/dl (3.4-5.0) 12/10/19 13:15 Syphilis Serology Reactive (NONREACTIVE) A* 12/10/19 13:15 RPR Titer Reactive 1:1 (NONREACTIVE) H D 12/10/19 13:15 COVID-19 ([facility]) Not detected (Not Detected) 12/10/19 15:00 Labs reviewed. - Treatment Hospital Course: Detox Protocol Followed, Discharged Condition Good (Alert and oriented. Steady gait. Lungs CTA. Abd S/NT) - Medication Discharge Medications: Ambulatory Orders Divalproex *ER* [Depakote *ER* -] 250 mg PO BID 12/10/19 - Diagnosis (1) History of asthma Status: Chronic (2) History of gastritis Status: Resolved (3) Bone pain Status: Acute (4) Alcohol dependence with uncomplicated withdrawal Status: Acute (5) Syphilis contact, treated Status: Chronic (6) Cannabis dependence Status: Chronic (7) Cocaine dependence Status: Chronic Qualifiers: Substance use status: uncomplicated Qualified Code(s): F14.20 - Cocaine dependence, uncomplicated (8) Insomnia Status: Chronic Qualifiers: Insomnia type: unspecified Qualified Code(s): G47.00 - Insomnia, unspecified (9) Bipolar disorder Status: Chronic Qualifiers: Active/Remission status: remission status unspecified Qualified Code(s): F31.9 - Bipolar disorder, unspecified (10) Nicotine dependence Status: Chronic Qualifiers: Nicotine product type: cigarettes Substance use status: uncomplicated Qualified Code(s): F17.210 - Nicotine dependence, cigarettes, uncomplicated - AMA Did Patient Leave Against Medical Advice: No
[2019-12-13] MEDS ORDERED: DIVALPROEX SODIUM 500 MG TABLET E.C. PO SCH (22:00)
[2019-12-13] MEDS ORDERED: QUEtiapine FUMARATE 200 MG TABLET PO SCH (22:00)
[2019-12-14] MEDS ORDERED: chlordiazePOXIDE HCL 10 MG CAPSULE PO SCH (05:00)
[2019-12-14] MEDS ORDERED: QUEtiapine FUMARATE 100 MG TABLET (FP) PO SCH (10:00)
--- NOTE | 2019-12-14 10:10 | PN ---
[facility] Progress Note Note: Psychiatry Attending's note : Chart reviewed. As per notes, patient left program yesterday. Refer to medical FINANCIAL ANALYSIS MANAGER Zahra Gomez's note for details. Scripts for : seroquel 300 mg po hs tab # 30 depakote 500 mg po hs tab # 30 Sent electronically to : Leatha Walker -[address] [facility] [place] [address]
[2019-12-15] MEDS ORDERED: chlordiazePOXIDE HCL 10 MG CAPSULE PO ONE (05:00)
== END 2019-12-13 18:40 | disposition home or self-care (01) | DRG 774 ==
LOC: YASAS 12:02 → Y3N 13:53
PROVIDERS: ADMIT Allergy & Immunology; ATTEND Allergy & Immunology
PROC: HZ2ZZZZ Detoxification Services for Substance Abuse Treatment (ICD-10-PCS; principal; 2019-12-10)
DX: F10.230 Alcohol dependence with withdrawal, uncomplicated (principal); F14.20 Cocaine dependence, uncomplicated; F12.20 Cannabis dependence, uncomplicated; F17.210 Nicotine dependence, cigarettes, uncomplicated; F31.9 Bipolar disorder, unspecified; F19.24 Other psychoactive substance dependence with psychoactive substance-induced mood disorder; G47.00 Insomnia, unspecified; M54.5 Low back pain; M25.569 Pain in unspecified knee; Z87.19 Personal history of other diseases of the digestive system; Z62.810 Personal history of physical and sexual abuse in childhood; Z87.09 Personal history of other diseases of the respiratory system; Z20.2 Contact with and (suspected) exposure to infections with a predominantly sexual mode of transmission; Z91.013 Allergy to seafood; Z91.19 Patient's noncompliance with other medical treatment and regimen
CPT/HCPCS: 36415; 80053; 85027; 86593; 86780; J0735; Q0162; U0003

== ENCOUNTER 2021-05-24 10:51 | Inpatient (IN) | payer OTHER ==
[2021-05-24] MEDS ORDERED: IBUPROFEN 400 MG TABLET (FP) PO PRN (12:15)
[2021-05-24] MEDS ORDERED: ACETAMINOPHEN 325 MG TABLET (FP) PO PRN ×2 (12:15)
[2021-05-24] MEDS ORDERED: BISMUTH SUBSALICYLATE 262 MG/15 ML BTL PO PRN (12:15)
[2021-05-24] MEDS ORDERED: chlordiazePOXIDE HCL 25 MG CAPSULE PO PRN (12:15)
[2021-05-24] MEDS ORDERED: NICOTINE 10 MG CARTRIDGE (INHALER) IH PRN (12:15)
[2021-05-24] MEDS ORDERED: MAGNESIUM HYDROX 2400MG/30ML ORAL SUSPENSION 30 ML CUP PO PRN (12:15)
[2021-05-24] MEDS ORDERED: ONDANSETRON *ODT* 4 MG TABLET SL PRN (12:15)
[2021-05-24] MEDS ORDERED: MAG HYDROX/AL HYDROX/SIMETH 30 ML UNIT-DOSE CUP PO PRN (12:15)
[2021-05-24] MEDS ORDERED: MAGNESIUM CITRATE 300 ML BOTTLE PO PRN (12:15)
[2021-05-24] MEDS ORDERED: MENTHOL/PHENOL 1 EACH UD MM PRN (12:15)
[2021-05-24 12:30] VITALS: BMI 31.2
[2021-05-24] MEDS ORDERED: hydrOXYzine PAMOATE 25 MG CAPSULE (FP) PO SCH (14:00)
[2021-05-24] MEDS: METHOCARBAMOL 500 MG TABLET PO PRN (14:14)
[2021-05-24] MEDS ORDERED: INSULIN (NOVOLOG) ASPART 100 UNITS/ML 10ML VIAL ONE (16:43)
[2021-05-24] MEDS: INSULIN SLIDING SCALE (NOVOLOG) 1 VIAL SQ SCH ×2 (16:51→22:52)
[2021-05-24] MEDS: chlordiazePOXIDE HCL 25 MG CAPSULE PO SCH ×2 (17:00→22:51)
[2021-05-24] MEDS ORDERED: MELATONIN 5 MG TABLETS PO SCH (22:00)
[2021-05-24] MEDS: QUEtiapine FUMARATE 300 MG TABLET PO SCH (22:52)
[2021-05-24] MEDS: THIAMINE HCL 100 MG TABLET (FP) PO SCH (22:52)
[2021-05-25] MEDS: chlordiazePOXIDE HCL 25 MG CAPSULE PO SCH ×4 (05:59→22:55)
[2021-05-25] MEDS ORDERED: INSULIN (LEVEMIR) 100 UNITS/ML UNITS SQ SCH (07:00)
[2021-05-25] MEDS: INSULIN SLIDING SCALE (NOVOLOG) 1 VIAL SQ SCH ×4 (07:14→22:55)
[2021-05-25 10:05] LABS: HEMATOCRIT 47.7 % (35.4-49); HEMOGLOBIN 16.1 GM/dL (11.7-16.9); MCH 30.2 pg (25.7-33.7); MCHC 33.7 g/dl (32.0-35.9); MEAN CELL VOLUME 89.6 fl (80-96); MEAN PLT VOLUME 11.7 fl (7.5-11.1); PLATELET COUNT 144 10^3/uL (134-434); RBC 5.32 M/mm3 (4.00-5.60); RDW 13.3 % (11.9-15.9); WHITE BLOOD COUNT 5.5 K/mm3 (4.0-10.0)
[2021-05-25 10:10] LABS: ALBUMIN 3.6 g/dl (3.4-5.0); BLOOD UREA NITROGEN 10.1 mg/dL (7-18); CREATININE 1.1 mg/dL (0.55-1.3)
[2021-05-25 10:11] LABS: CALCIUM 8.8 mg/dL (8.5-10.1)
[2021-05-25 10:12] LABS: BILIRUBIN,TOTAL 1.2 mg/dL (0.2-1); TOT PROT 7.6 g/dl (6.4-8.2)
[2021-05-25] MEDS: PRENATAL VITAMINS W/ FOLIC ACID TABLET (FP) PO SCH (10:34)
[2021-05-25] MEDS ORDERED: INSULIN (NOVOLOG) ASPART 100 UNITS/ML 10ML VIAL ONE ×3 (10:48→21:58)
[2021-05-25] MEDS: QUEtiapine FUMARATE 300 MG TABLET PO SCH (21:56)
[2021-05-25] MEDS: THIAMINE HCL 100 MG TABLET (FP) PO SCH (21:56)
[2021-05-26] MEDS: chlordiazePOXIDE HCL 25 MG CAPSULE PO SCH ×3 (06:28→17:33)
[2021-05-26] MEDS ORDERED: INSULIN (LEVEMIR) 100 UNITS/ML UNITS SQ SCH ×2 (07:00)
[2021-05-26] MEDS: INSULIN SLIDING SCALE (NOVOLOG) 1 VIAL SQ SCH ×3 (07:04→17:31)
[2021-05-26] MEDS: PRENATAL VITAMINS W/ FOLIC ACID TABLET (FP) PO SCH (11:16)
[2021-05-26] MEDS: METHOCARBAMOL 500 MG TABLET PO PRN (11:18)
[2021-05-26 13:15] VITALS: BP 135/76; PULSE 95; TEMP 98.1
[2021-05-26] MEDS ORDERED: INSULIN (NOVOLOG) ASPART 100 UNITS/ML 10ML VIAL ONE (17:16)
[2021-05-27] MEDS ORDERED: chlordiazePOXIDE HCL 10 MG CAPSULE PO PRN
[2021-05-27] MEDS ORDERED: chlordiazePOXIDE HCL 10 MG CAPSULE PO SCH (05:00)
[2021-05-27] MEDS ORDERED: INSULIN (LEVEMIR) 100 UNITS/ML UNITS SQ SCH (07:00)
[2021-05-28] MEDS ORDERED: chlordiazePOXIDE HCL 10 MG CAPSULE PO SCH (05:00)
[2021-05-29] MEDS ORDERED: chlordiazePOXIDE HCL 10 MG CAPSULE PO ONE (05:00)
== END 2021-05-26 18:30 | disposition home or self-care (01) | DRG 774 ==
LOC: YASAS 10:51 → Y6N 13:08
PROVIDERS: ADMIT Allergy & Immunology; ATTEND Allergy & Immunology
PROC: HZ2ZZZZ Detoxification Services for Substance Abuse Treatment (ICD-10-PCS; principal; 2021-05-24)
DX: F10.230 Alcohol dependence with withdrawal, uncomplicated (principal); F14.20 Cocaine dependence, uncomplicated; F12.20 Cannabis dependence, uncomplicated; F16.20 Hallucinogen dependence, uncomplicated; F17.210 Nicotine dependence, cigarettes, uncomplicated; F31.9 Bipolar disorder, unspecified; F25.9 Schizoaffective disorder, unspecified; F43.10 Post-traumatic stress disorder, unspecified; F19.282 Other psychoactive substance dependence with psychoactive substance-induced sleep disorder; J45.909 Unspecified asthma, uncomplicated; R74.01 Elevation of levels of liver transaminase levels; E11.65 Type 2 diabetes mellitus with hyperglycemia; Z62.810 Personal history of physical and sexual abuse in childhood; Z79.4 Long term (current) use of insulin; Z91.013 Allergy to seafood; Z86.19 Personal history of other infectious and parasitic diseases
CPT/HCPCS: 36415; 80053; 82962; 83036; 85027; 86593; 86780; C9803; Q0162; U0003; U0005

== ENCOUNTER 2021-08-09 11:55 | Inpatient (IN) | payer OTHER ==
[2021-08-09] MEDS ORDERED: MAGNESIUM HYDROX 2400MG/30ML ORAL SUSPENSION 30 ML CUP PO PRN (12:40)
[2021-08-09] MEDS ORDERED: IBUPROFEN 400 MG TABLET (FP) PO PRN (12:40)
[2021-08-09] MEDS ORDERED: LOPERAMIDE HCL 2 MG CAPSULE PO PRN (12:40)
[2021-08-09] MEDS ORDERED: ACETAMINOPHEN 325 MG TABLET (FP) PO PRN ×2 (12:40)
[2021-08-09] MEDS ORDERED: METHOCARBAMOL 500 MG TABLET PO PRN (12:40)
[2021-08-09] MEDS ORDERED: BISMUTH SUBSALICYLATE 524 MG/30 ML PO PRN (12:40)
[2021-08-09] MEDS ORDERED: chlordiazePOXIDE HCL 25 MG CAPSULE PO PRN (12:40)
[2021-08-09] MEDS ORDERED: MENTHOL/PHENOL 1 EACH UD MM PRN (12:40)
[2021-08-09] MEDS ORDERED: MAG HYDROX/AL HYDROX/SIMETH 30 ML UNIT-DOSE CUP PO PRN (12:40)
[2021-08-09] MEDS ORDERED: MAGNESIUM CITRATE 300 ML BOTTLE PO PRN (12:40)
[2021-08-09] MEDS ORDERED: NICOTINE 10 MG CARTRIDGE (INHALER) IH PRN (12:40)
[2021-08-09 13:08] VITALS: BMI 24.8
[2021-08-09] MEDS: ONDANSETRON *ODT* 4 MG TABLET SL PRN (14:15)
[2021-08-09] MEDS: hydrOXYzine PAMOATE 25 MG CAPSULE (FP) PO SCH ×3 (14:15→22:43)
[2021-08-09] MEDS: PRENATAL VITAMINS W/ FOLIC ACID TABLET (FP) PO SCH (14:19)
[2021-08-09] MEDS ORDERED: INSULIN SLIDING SCALE (NOVOLOG) 1 VIAL SQ SCH ×2 (16:30→17:23)
[2021-08-09 17:55] LABS: HEMATOCRIT 47.4 % (35.4-49); HEMOGLOBIN 15.6 GM/dL (11.7-16.9); MEAN CELL VOLUME 93.8 fl (80-96); MEAN PLT VOLUME 11.2 fl (7.5-11.1); PLATELET COUNT 192 10^3/uL (134-434); RBC 5.05 M/mm3 (4.00-5.60); RDW 14.5 % (11.9-15.9); WHITE BLOOD COUNT 8.3 K/mm3 (4.0-10.0)
[2021-08-09 17:58] LABS: CALCIUM 9.4 mg/dL (8.5-10.1)
[2021-08-09 17:59] LABS: BLOOD UREA NITROGEN 9.4 mg/dL (7-18)
[2021-08-09 18:01] LABS: CREATININE 0.9 mg/dL (0.55-1.3)
[2021-08-09 18:03] LABS: BILIRUBIN,TOTAL 0.8 mg/dL (0.2-1); TOT PROT 7.3 g/dl (6.4-8.2)
[2021-08-09] MEDS: chlordiazePOXIDE HCL 25 MG CAPSULE PO SCH ×3 (18:07→22:42)
[2021-08-09] MEDS: INSULIN SLIDING SCALE (NOVOLOG) 1 VIAL SQ SCH ×2 (18:13→22:47)
[2021-08-09] MEDS: THIAMINE HCL 100 MG TABLET (FP) PO SCH (22:43)
[2021-08-09] MEDS: MELATONIN 5 MG TABLETS PO SCH (22:43)
[2021-08-10] MEDS: hydrOXYzine PAMOATE 25 MG CAPSULE (FP) PO SCH ×5 (05:19→22:58)
[2021-08-10] MEDS: chlordiazePOXIDE HCL 25 MG CAPSULE PO SCH ×4 (05:19→22:58)
[2021-08-10] MEDS: INSULIN SLIDING SCALE (NOVOLOG) 1 VIAL SQ SCH ×4 (06:01→22:58)
[2021-08-10] MEDS: NICOTINE 14 MG/24 HOURS TOPICAL PATCH TD SCH (10:01)
[2021-08-10] MEDS: PRENATAL VITAMINS W/ FOLIC ACID TABLET (FP) PO SCH (10:02)
[2021-08-10] MEDS: ONDANSETRON *ODT* 4 MG TABLET SL PRN (17:42)
[2021-08-10] MEDS ORDERED: QUEtiapine FUMARATE 100 MG TABLET (FP) PO ONE (22:49)
[2021-08-10] MEDS: THIAMINE HCL 100 MG TABLET (FP) PO SCH (22:58)
[2021-08-10] MEDS: MELATONIN 5 MG TABLETS PO SCH (22:58)
[2021-08-11] MEDS: chlordiazePOXIDE HCL 25 MG CAPSULE PO SCH ×2 (05:07→10:32)
[2021-08-11] MEDS: hydrOXYzine PAMOATE 25 MG CAPSULE (FP) PO SCH ×3 (05:07→14:14)
[2021-08-11] MEDS: INSULIN SLIDING SCALE (NOVOLOG) 1 VIAL SQ SCH ×2 (08:34→11:58)
[2021-08-11] MEDS: PRENATAL VITAMINS W/ FOLIC ACID TABLET (FP) PO SCH (10:32)
[2021-08-11] MEDS: NICOTINE 14 MG/24 HOURS TOPICAL PATCH TD SCH (10:32)
[2021-08-11] MEDS ORDERED: ALBUTEROL SO4 HFA INHALER IH PRN (10:53)
[2021-08-11 12:48] VITALS: BP 145/97; PULSE 90; TEMP 97.7
[2021-08-12] MEDS ORDERED: chlordiazePOXIDE HCL 10 MG CAPSULE PO PRN
[2021-08-12] MEDS ORDERED: chlordiazePOXIDE HCL 10 MG CAPSULE PO SCH (05:00)
[2021-08-13] MEDS ORDERED: chlordiazePOXIDE HCL 10 MG CAPSULE PO SCH (05:00)
[2021-08-14] MEDS ORDERED: chlordiazePOXIDE HCL 10 MG CAPSULE PO ONE (05:00)
== END 2021-08-11 16:02 | DRG 774 ==
LOC: YASAS 11:55 → Y3N 13:39
PROVIDERS: ADMIT Allergy & Immunology; ATTEND Allergy & Immunology
PROC: HZ2ZZZZ Detoxification Services for Substance Abuse Treatment (ICD-10-PCS; principal; 2021-08-09)
DX: F10.230 Alcohol dependence with withdrawal, uncomplicated (principal); F14.20 Cocaine dependence, uncomplicated; F12.20 Cannabis dependence, uncomplicated; F17.210 Nicotine dependence, cigarettes, uncomplicated; F25.9 Schizoaffective disorder, unspecified; F31.9 Bipolar disorder, unspecified; E11.9 Type 2 diabetes mellitus without complications; J45.909 Unspecified asthma, uncomplicated; Z91.013 Allergy to seafood; Z86.19 Personal history of other infectious and parasitic diseases; Z79.4 Long term (current) use of insulin; Z62.810 Personal history of physical and sexual abuse in childhood; Z91.19 Patient's noncompliance with other medical treatment and regimen
CPT/HCPCS: 36415; 80053; 82962; 85027; 86593; 86780; 87811; C9803; Q0162; U0003; U0005

== ENCOUNTER 2022-03-14 08:22 | Inpatient (IN) | payer OTHER ==
[2022-03-14 08:58] VITALS: BMI 26.6
[2022-03-14] MEDS ORDERED: BENZOCAINE/MENTHOL (CHLORASEPTIC ) LOZENGE MM PRN (09:39)
[2022-03-14] MEDS ORDERED: MAGNESIUM HYDROX 2400MG/30ML ORAL SUSPENSION 30 ML CUP PO PRN (09:39)
[2022-03-14] MEDS ORDERED: ACETAMINOPHEN 325 MG TABLET (FP) PO PRN ×2 (09:39)
[2022-03-14] MEDS ORDERED: MAGNESIUM CITRATE 300 ML BOTTLE PO PRN (09:39)
[2022-03-14] MEDS ORDERED: IBUPROFEN 600 MG TABLET (FP) PO PRN (09:39)
[2022-03-14] MEDS ORDERED: NALOXONE HCL (KLOXXADO) 8 MG SPRAY NS PRN (09:39)
[2022-03-14] MEDS ORDERED: chlordiazePOXIDE HCL 25 MG CAPSULE PO PRN (09:39)
[2022-03-14] MEDS ORDERED: METHOCARBAMOL 500 MG TABLET PO PRN (09:39)
[2022-03-14] MEDS ORDERED: BISMUTH SUBSALICYLATE 524 MG/30 ML PO PRN (09:39)
[2022-03-14] MEDS ORDERED: DICYCLOMINE HCL 10 MG CAPSULE PO PRN (09:39)
[2022-03-14] MEDS ORDERED: IBUPROFEN 400 MG TABLET (FP) PO PRN (09:39)
[2022-03-14] MEDS ORDERED: LOPERAMIDE HCL 2 MG CAPSULE PO PRN (09:39)
[2022-03-14] MEDS ORDERED: MAG HYDROX/AL HYDROX/SIMETH 30 ML UNIT-DOSE CUP PO PRN (09:39)
[2022-03-14] MEDS ORDERED: ALBUTEROL SO4 HFA INHALER IH PRN (09:41)
[2022-03-14] MEDS ORDERED: CLOTRIMAZOLE 1% CREAM TP SCH (10:30)
[2022-03-14] MEDS: chlordiazePOXIDE HCL 25 MG CAPSULE PO SCH ×3 (10:33→22:17)
[2022-03-14] MEDS: ONDANSETRON *ODT* 4 MG TABLET SL PRN ×2 (10:34→17:07)
[2022-03-14] MEDS: PRENATAL VITAMINS W/ FOLIC ACID TABLET (FP) PO SCH (10:34)
[2022-03-14] MEDS ORDERED: INSULIN SLIDING SCALE (NOVOLOG) 1 VIAL SQ SCH (11:00)
[2022-03-14] MEDS ORDERED: INSULIN (LEVEMIR) 100 UNITS/ML UNITS SQ SCH (11:30)
[2022-03-14] MEDS ORDERED: INSULIN (NOVOLOG) ASPART 100 UNITS/ML 10ML VIAL SQ ONE (11:35)
[2022-03-14] MEDS ORDERED: INSULIN (NOVOLOG) ASPART 100 UNITS/ML 10ML VIAL ONE ×2 (12:52→17:02)
[2022-03-14 14:53] LABS: HEMOGLOBIN 14.7 GM/dL (11.7-16.9); MCHC 32.6 g/dl (32.0-35.9); MEAN CELL VOLUME 92.1 fl (80-96); MEAN PLT VOLUME 11.8 fl (7.5-11.1); PLATELET COUNT 194 10^3/uL (134-434); RBC 4.89 M/mm3 (4.00-5.60); RDW 13.1 % (11.9-15.9); WHITE BLOOD COUNT 7.5 K/mm3 (4.0-10.0)
[2022-03-14 15:11] LABS: CHLORIDE 98 mmol/L (98-107); SODIUM 137 mmol/L (136-145)
[2022-03-14] MEDS: CLOTRIMAZOLE 1% CREAM TP SCH ×2 (15:15→22:17)
[2022-03-14 15:19] LABS: CALCIUM 9.3 mg/dL (8.5-10.1)
[2022-03-14 15:20] LABS: ALBUMIN 3.8 g/dl (3.4-5.0); ANION GAP 9 MMOL/L (8-16); BLOOD UREA NITROGEN 17.5 mg/dL (7-18); CO2 30 mmol/L (21-32)
[2022-03-14 15:22] LABS: SGPT/ALT 27 U/L (13-61)
[2022-03-14 15:23] LABS: CREATININE 1.3 mg/dL (0.55-1.3); SGOT/AST 18 U/L (15-37)
[2022-03-14 15:24] LABS: TOT PROT 7.2 g/dl (6.4-8.2)
[2022-03-14 15:25] LABS: ALK PHOS 70 U/L (45-117); BILIRUBIN,TOTAL 0.8 mg/dL (0.2-1)
[2022-03-14 15:26] LABS: GLUCOSE,RANDOM 612 mg/dL (74-106)
[2022-03-14] MEDS: INSULIN SLIDING SCALE (NOVOLOG) 1 VIAL SQ SCH (17:08)
[2022-03-14] MEDS ORDERED: MELATONIN 5 MG TABLETS PO SCH (22:00)
[2022-03-14] MEDS: INSULIN (LEVEMIR) 100 UNITS/ML UNITS SQ SCH (22:17)
[2022-03-14] MEDS: THIAMINE HCL 100 MG TABLET (FP) PO SCH (22:17)
[2022-03-14] MEDS: QUEtiapine FUMARATE 200 MG TABLET PO SCH (22:17)
[2022-03-15] MEDS: chlordiazePOXIDE HCL 25 MG CAPSULE PO SCH ×4 (05:51→23:06)
[2022-03-15] MEDS: INSULIN SLIDING SCALE (NOVOLOG) 1 VIAL SQ SCH ×3 (07:14→17:30)
[2022-03-15] MEDS ORDERED: INSULIN (NOVOLOG) ASPART 100 UNITS/ML 10ML VIAL ONE ×4 (07:16→22:59)
[2022-03-15] MEDS: CLOTRIMAZOLE 1% CREAM TP SCH ×2 (10:45→23:04)
[2022-03-15] MEDS: QUEtiapine FUMARATE 100 MG TABLET (FP) PO SCH (10:45)
[2022-03-15] MEDS: PRENATAL VITAMINS W/ FOLIC ACID TABLET (FP) PO SCH (10:45)
[2022-03-15] MEDS: INSULIN (LEVEMIR) 100 UNITS/ML UNITS SQ SCH (23:03)
[2022-03-15] MEDS: QUEtiapine FUMARATE 200 MG TABLET PO SCH (23:05)
[2022-03-15] MEDS: THIAMINE HCL 100 MG TABLET (FP) PO SCH (23:06)
[2022-03-16] MEDS: chlordiazePOXIDE HCL 25 MG CAPSULE PO SCH ×4 (06:26→22:16)
[2022-03-16] MEDS: INSULIN SLIDING SCALE (NOVOLOG) 1 VIAL SQ SCH ×3 (08:05→18:02)
[2022-03-16] MEDS ORDERED: INSULIN (NOVOLOG) ASPART 100 UNITS/ML 10ML VIAL ONE ×3 (08:08→17:20)
[2022-03-16] MEDS: PRENATAL VITAMINS W/ FOLIC ACID TABLET (FP) PO SCH (10:26)
[2022-03-16] MEDS: QUEtiapine FUMARATE 100 MG TABLET (FP) PO SCH (10:26)
[2022-03-16] MEDS: CLOTRIMAZOLE 1% CREAM TP SCH ×2 (10:32→22:17)
[2022-03-16] MEDS: hydrOXYzine PAMOATE 25 MG CAPSULE (FP) PO PRN (18:01)
[2022-03-16] MEDS: QUEtiapine FUMARATE 200 MG TABLET PO SCH (22:16)
[2022-03-16] MEDS: THIAMINE HCL 100 MG TABLET (FP) PO SCH (22:16)
[2022-03-16] MEDS: INSULIN (LEVEMIR) 100 UNITS/ML UNITS SQ SCH (22:17)
[2022-03-17] MEDS ORDERED: chlordiazePOXIDE HCL 10 MG CAPSULE PO PRN
[2022-03-17] MEDS ORDERED: INSULIN (NOVOLOG) ASPART 100 UNITS/ML 10ML VIAL SQ ONE (05:43)
[2022-03-17] MEDS: chlordiazePOXIDE HCL 10 MG CAPSULE PO SCH ×2 (05:47→10:14)
[2022-03-17] MEDS: INSULIN SLIDING SCALE (NOVOLOG) 1 VIAL SQ SCH ×3 (06:30→17:08)
[2022-03-17] MEDS: QUEtiapine FUMARATE 100 MG TABLET (FP) PO SCH (10:11)
[2022-03-17] MEDS: PRENATAL VITAMINS W/ FOLIC ACID TABLET (FP) PO SCH (10:11)
[2022-03-17] MEDS: ONDANSETRON *ODT* 4 MG TABLET SL PRN (10:12)
[2022-03-17] MEDS: CLOTRIMAZOLE 1% CREAM TP SCH ×2 (10:12→22:06)
[2022-03-17 12:58] VITALS: RESP 18
[2022-03-17] MEDS: chlordiazePOXIDE 5 MG CAPSULE PO SCH ×2 (17:08→22:05)
[2022-03-17] MEDS: hydrOXYzine PAMOATE 25 MG CAPSULE (FP) PO PRN (22:05)
[2022-03-17] MEDS: INSULIN (LEVEMIR) 100 UNITS/ML UNITS SQ SCH (22:05)
[2022-03-17] MEDS: QUEtiapine FUMARATE 200 MG TABLET PO SCH (22:05)
[2022-03-17] MEDS: THIAMINE HCL 100 MG TABLET (FP) PO SCH (22:05)
[2022-03-18] MEDS ORDERED: chlordiazePOXIDE HCL 10 MG CAPSULE PO SCH (05:00)
[2022-03-18 06:44] VITALS: BP 125/75; PULSE 73; TEMP 97.8
[2022-03-18] MEDS: INSULIN SLIDING SCALE (NOVOLOG) 1 VIAL SQ SCH ×2 (07:00→11:08)
[2022-03-18] MEDS: CLOTRIMAZOLE 1% CREAM TP SCH (10:16)
[2022-03-18] MEDS: PRENATAL VITAMINS W/ FOLIC ACID TABLET (FP) PO SCH (10:16)
[2022-03-18] MEDS: QUEtiapine FUMARATE 100 MG TABLET (FP) PO SCH (10:17)
[2022-03-19] MEDS ORDERED: chlordiazePOXIDE HCL 10 MG CAPSULE PO ONE (05:00)
== END 2022-03-18 10:38 | disposition home or self-care (01) | DRG 774 ==
LOC: YASAS 08:22 → Y6N 10:15
PROVIDERS: ADMIT Allergy & Immunology; ATTEND Surgery
PROC: HZ2ZZZZ Detoxification Services for Substance Abuse Treatment (ICD-10-PCS; principal; 2022-03-14)
DX: F10.230 Alcohol dependence with withdrawal, uncomplicated (principal); F14.20 Cocaine dependence, uncomplicated; F16.10 Hallucinogen abuse, uncomplicated; F12.20 Cannabis dependence, uncomplicated; F17.210 Nicotine dependence, cigarettes, uncomplicated; F25.9 Schizoaffective disorder, unspecified; F31.9 Bipolar disorder, unspecified; E11.9 Type 2 diabetes mellitus without complications; Z79.4 Long term (current) use of insulin; Z86.16 Personal history of COVID-19; Z86.19 Personal history of other infectious and parasitic diseases; Z91.013 Allergy to seafood
CPT/HCPCS: 36415; 80053; 82140; 82962; 83036; 85027; 86593; 86780; C9803-CS; Q0162; U0003; U0005

== ENCOUNTER 2022-03-28 08:50 | Inpatient (IN) | payer OTHER ==
[2022-03-28 09:49] VITALS: BMI 31.2
[2022-03-28] MEDS ORDERED: MAGNESIUM HYDROX 2400MG/30ML ORAL SUSPENSION 30 ML CUP PO PRN (10:30)
[2022-03-28] MEDS ORDERED: ONDANSETRON *ODT* 4 MG TABLET SL PRN (10:30)
[2022-03-28] MEDS ORDERED: ACETAMINOPHEN 325 MG TABLET (FP) PO PRN ×2 (10:30)
[2022-03-28] MEDS ORDERED: BENZOCAINE/MENTHOL (CHLORASEPTIC ) LOZENGE MM PRN (10:30)
[2022-03-28] MEDS ORDERED: MAG HYDROX/AL HYDROX/SIMETH 30 ML UNIT-DOSE CUP PO PRN (10:30)
[2022-03-28] MEDS ORDERED: IBUPROFEN 400 MG TABLET (FP) PO PRN (10:30)
[2022-03-28] MEDS ORDERED: NICOTINE 10 MG CARTRIDGE (INHALER) IH PRN (10:30)
[2022-03-28] MEDS ORDERED: METHOCARBAMOL 500 MG TABLET PO PRN (10:30)
[2022-03-28] MEDS ORDERED: DICYCLOMINE HCL 10 MG CAPSULE PO PRN (10:30)
[2022-03-28] MEDS ORDERED: BISMUTH SUBSALICYLATE 524 MG/30 ML PO PRN (10:30)
[2022-03-28] MEDS ORDERED: NALOXONE HCL (KLOXXADO) 8 MG SPRAY NS PRN (10:30)
[2022-03-28] MEDS ORDERED: LOPERAMIDE HCL 2 MG CAPSULE PO PRN (10:30)
[2022-03-28] MEDS ORDERED: hydrOXYzine PAMOATE 25 MG CAPSULE (FP) PO PRN (10:30)
[2022-03-28] MEDS ORDERED: IBUPROFEN 600 MG TABLET (FP) PO PRN (10:30)
[2022-03-28] MEDS ORDERED: MAGNESIUM CITRATE 300 ML BOTTLE PO PRN (10:30)
[2022-03-28] MEDS ORDERED: ALBUTEROL SO4 HFA INHALER IH SCH (10:45)
[2022-03-28] MEDS ORDERED: INSULIN SLIDING SCALE (NOVOLOG) 1 VIAL SQ SCH (11:00)
[2022-03-28] MEDS ORDERED: ALBUTEROL SO4 HFA INHALER IH PRN (11:36)
[2022-03-28] MEDS ORDERED: INSULIN (NOVOLOG) ASPART 100 UNITS/ML 10ML VIAL ONE (11:43)
[2022-03-28] MEDS: INSULIN SLIDING SCALE (NOVOLOG) 1 VIAL SQ SCH ×3 (11:50→22:09)
[2022-03-28] MEDS ORDERED: INSULIN (LEVEMIR) 100 UNITS/ML UNITS SQ ONE ×2 (12:45→13:11)
[2022-03-28] MEDS: INSULIN (LEVEMIR) 100 UNITS/ML UNITS SQ SCH (12:46)
[2022-03-28] MEDS: PRENATAL VITAMINS W/ FOLIC ACID TABLET (FP) PO SCH (12:47)
[2022-03-28 15:01] LABS: HEMATOCRIT 45.7 % (35.4-49); HEMOGLOBIN 15.2 GM/dL (11.7-16.9); MCH 30.5 pg (25.7-33.7); MCHC 33.3 g/dl (32.0-35.9); MEAN CELL VOLUME 91.5 fl (80-96); MEAN PLT VOLUME 11.2 fl (7.5-11.1); PLATELET COUNT 187 10^3/uL (134-434); RBC 4.99 M/mm3 (4.00-5.60); RDW 13.3 % (11.9-15.9)
[2022-03-28 15:07] LABS: ALBUMIN 3.8 g/dl (3.4-5.0); BLOOD UREA NITROGEN 8.5 mg/dL (7-18); CALCIUM 9.4 mg/dL (8.5-10.1)
[2022-03-28 15:10] LABS: CREATININE 0.9 mg/dL (0.55-1.3)
[2022-03-28] MEDS ORDERED: THIAMINE HCL 100 MG TABLET (FP) PO SCH (22:00)
[2022-03-28] MEDS ORDERED: MELATONIN 5 MG TABLETS PO SCH (22:00)
[2022-03-29] MEDS: INSULIN (LEVEMIR) 100 UNITS/ML UNITS SQ SCH (06:19)
[2022-03-29] MEDS ORDERED: INSULIN (LEVEMIR) 100 UNITS/ML UNITS SQ ONE (07:01)
[2022-03-29] MEDS ORDERED: INSULIN SLIDING SCALE (NOVOLOG) 1 VIAL SQ ONE (07:03)
[2022-03-29] MEDS: INSULIN SLIDING SCALE (NOVOLOG) 1 VIAL SQ SCH ×3 (07:38→16:45)
[2022-03-29] MEDS: PRENATAL VITAMINS W/ FOLIC ACID TABLET (FP) PO SCH (11:59)
[2022-03-29 12:37] VITALS: BP 128/75; PULSE 71; RESP 16; TEMP 97.1
== END 2022-03-29 17:08 | disposition other institution (70) | DRG 774 ==
LOC: YASAS 08:50 → Y3N 10:59
PROVIDERS: ADMIT Allergy & Immunology; ATTEND Surgery
PROC: HZ2ZZZZ Detoxification Services for Substance Abuse Treatment (ICD-10-PCS; principal; 2022-03-28)
DX: F10.230 Alcohol dependence with withdrawal, uncomplicated (principal); F14.20 Cocaine dependence, uncomplicated; F12.20 Cannabis dependence, uncomplicated; F17.210 Nicotine dependence, cigarettes, uncomplicated; F25.9 Schizoaffective disorder, unspecified; F31.9 Bipolar disorder, unspecified; F41.9 Anxiety disorder, unspecified; E11.9 Type 2 diabetes mellitus without complications; Z79.4 Long term (current) use of insulin; J45.909 Unspecified asthma, uncomplicated; Z86.19 Personal history of other infectious and parasitic diseases
CPT/HCPCS: 36415; 80053; 82962; 85027; 86593; 86780; C9803-CS; Q0162; U0003; U0005

== ENCOUNTER 2022-03-29 17:13 | Inpatient (IN) | payer OTHER ==
[2022-03-29] MEDS ORDERED: MAG HYDROX/AL HYDROX/SIMETH 30 ML UNIT-DOSE CUP PO PRN (18:06)
[2022-03-29] MEDS ORDERED: BENZOCAINE/MENTHOL (CHLORASEPTIC ) LOZENGE MM PRN (18:06)
[2022-03-29] MEDS ORDERED: ACETAMINOPHEN 325 MG TABLET (FP) PO PRN (18:06)
[2022-03-29] MEDS ORDERED: LOPERAMIDE HCL 2 MG CAPSULE PO PRN (18:06)
[2022-03-29] MEDS ORDERED: hydrOXYzine PAMOATE 25 MG CAPSULE (FP) PO PRN (18:06)
[2022-03-29] MEDS ORDERED: MAGNESIUM HYDROX 2400MG/30ML ORAL SUSPENSION 30 ML CUP PO PRN (18:06)
[2022-03-29] MEDS ORDERED: P-EPHED 60MG/TRIPROLIDI 2.5MG TABLET PO PRN (18:06)
[2022-03-29] MEDS ORDERED: IBUPROFEN 400 MG TABLET (FP) PO PRN (18:06)
[2022-03-29] MEDS ORDERED: MAGNESIUM CITRATE 300 ML BOTTLE PO PRN (18:06)
[2022-03-29] MEDS ORDERED: guaiFENesin 200 MG/10 ML 10 ML UNIT-DOSE CUPS PO PRN (18:06)
[2022-03-29] MEDS ORDERED: NICOTINE 10 MG CARTRIDGE (INHALER) IH PRN (18:06)
[2022-03-29] MEDS ORDERED: ALBUTEROL SO4 HFA INHALER IH PRN (18:15)
[2022-03-29] MEDS: MELATONIN 5 MG TABLETS PO SCH (21:20)
[2022-03-29] MEDS: THIAMINE HCL 100 MG TABLET (FP) PO SCH (21:20)
[2022-03-29] MEDS: INSULIN (LEVEMIR) 100 UNITS/ML UNITS SQ SCH (21:22)
[2022-03-30] MEDS: INSULIN SLIDING SCALE (NOVOLOG) 1 VIAL SQ SCH ×3 (07:07→17:10)
[2022-03-30] MEDS: PRENATAL VITAMINS W/ FOLIC ACID TABLET (FP) PO SCH (10:13)
[2022-03-30] MEDS: NICOTINE 7 MG/24 HOURS TOPICAL PATCH TD SCH (10:14)
[2022-03-30] MEDS: MELATONIN 5 MG TABLETS PO SCH (21:22)
[2022-03-30] MEDS: THIAMINE HCL 100 MG TABLET (FP) PO SCH (21:23)
[2022-03-30] MEDS: INSULIN (LEVEMIR) 100 UNITS/ML UNITS SQ SCH (21:24)
[2022-03-30] MEDS ORDERED: SERTRALINE HCL 50 MG TABLET (FP) PO ONE (22:00)
[2022-03-31] MEDS: INSULIN SLIDING SCALE (NOVOLOG) 1 VIAL SQ SCH ×3 (06:16→17:35)
[2022-03-31] MEDS: PRENATAL VITAMINS W/ FOLIC ACID TABLET (FP) PO SCH (10:16)
[2022-03-31] MEDS: NICOTINE 7 MG/24 HOURS TOPICAL PATCH TD SCH (10:17)
[2022-03-31] MEDS ORDERED: ONDANSETRON *ODT* 4 MG TABLET SL PRN (13:10)
[2022-03-31] MEDS ORDERED: TRIMETHOBENZAMIDE HCL 200MG/2ML INJ IM PRN (14:33)
[2022-03-31] MEDS: MELATONIN 5 MG TABLETS PO SCH (21:17)
[2022-03-31] MEDS: QUEtiapine FUMARATE 200 MG TABLET PO SCH (21:17)
[2022-03-31] MEDS: THIAMINE HCL 100 MG TABLET (FP) PO SCH (21:17)
[2022-03-31] MEDS: INSULIN (LEVEMIR) 100 UNITS/ML UNITS SQ SCH (21:18)
[2022-04-01] MEDS: INSULIN SLIDING SCALE (NOVOLOG) 1 VIAL SQ SCH ×3 (06:46→16:28)
[2022-04-01] MEDS: PRENATAL VITAMINS W/ FOLIC ACID TABLET (FP) PO SCH (10:03)
[2022-04-01] MEDS: NICOTINE 7 MG/24 HOURS TOPICAL PATCH TD SCH (10:03)
[2022-04-01] MEDS: QUEtiapine FUMARATE 200 MG TABLET PO SCH (21:23)
[2022-04-01] MEDS: MELATONIN 5 MG TABLETS PO SCH (21:23)
[2022-04-01] MEDS: THIAMINE HCL 100 MG TABLET (FP) PO SCH (21:23)
[2022-04-01] MEDS: INSULIN (LEVEMIR) 100 UNITS/ML UNITS SQ SCH (21:25)
[2022-04-02] MEDS: INSULIN SLIDING SCALE (NOVOLOG) 1 VIAL SQ SCH ×3 (06:15→17:56)
[2022-04-02 06:53] VITALS: RESP 18
[2022-04-02] MEDS: PRENATAL VITAMINS W/ FOLIC ACID TABLET (FP) PO SCH (10:00)
[2022-04-02] MEDS: NICOTINE 7 MG/24 HOURS TOPICAL PATCH TD SCH (10:00)
[2022-04-02] MEDS: THIAMINE HCL 100 MG TABLET (FP) PO SCH (21:13)
[2022-04-02] MEDS: INSULIN (LEVEMIR) 100 UNITS/ML UNITS SQ SCH (21:13)
[2022-04-02] MEDS: QUEtiapine FUMARATE 200 MG TABLET PO SCH (21:13)
[2022-04-02] MEDS: MELATONIN 5 MG TABLETS PO SCH (21:13)
[2022-04-03] MEDS: INSULIN SLIDING SCALE (NOVOLOG) 1 VIAL SQ SCH ×3 (06:23→16:50)
[2022-04-03] MEDS ORDERED: INSULIN SLIDING SCALE (NOVOLOG) 1 VIAL SQ ONE (06:23)
[2022-04-03] MEDS: PRENATAL VITAMINS W/ FOLIC ACID TABLET (FP) PO SCH (10:17)
[2022-04-03] MEDS: NICOTINE 7 MG/24 HOURS TOPICAL PATCH TD SCH (10:17)
[2022-04-03] MEDS: QUEtiapine FUMARATE 200 MG TABLET PO SCH (21:19)
[2022-04-03] MEDS: THIAMINE HCL 100 MG TABLET (FP) PO SCH (21:20)
[2022-04-03] MEDS: MELATONIN 5 MG TABLETS PO SCH (21:20)
[2022-04-03] MEDS: INSULIN (LEVEMIR) 100 UNITS/ML UNITS SQ SCH (21:20)
[2022-04-04] MEDS: INSULIN SLIDING SCALE (NOVOLOG) 1 VIAL SQ SCH ×2 (06:21→11:30)
[2022-04-04 09:03] VITALS: BP 117/70; PULSE 71; TEMP 97.7
[2022-04-04] MEDS: NICOTINE 7 MG/24 HOURS TOPICAL PATCH TD SCH (10:43)
[2022-04-04] MEDS: PRENATAL VITAMINS W/ FOLIC ACID TABLET (FP) PO SCH (10:44)
[2022-04-04] MEDS ORDERED: INSULIN (LEVEMIR) 100 UNITS/ML UNITS SQ SCH (11:37)
== END 2022-04-04 01:05 | disposition home or self-care (01) | DRG 772 ==
LOC: YASAS 17:13 → Y3W 17:15
PROVIDERS: ADMIT Allergy & Immunology; ATTEND Psychiatry & Neurology Pain Medicine
PROC: HZ42ZZZ Group Counseling for Substance Abuse Treatment, Cognitive-Behavioral (ICD-10-PCS; principal; 2022-03-29)
DX: F10.20 Alcohol dependence, uncomplicated (principal); F14.20 Cocaine dependence, uncomplicated; F12.20 Cannabis dependence, uncomplicated; F17.210 Nicotine dependence, cigarettes, uncomplicated; F25.9 Schizoaffective disorder, unspecified; F31.9 Bipolar disorder, unspecified; F19.282 Other psychoactive substance dependence with psychoactive substance-induced sleep disorder; F19.24 Other psychoactive substance dependence with psychoactive substance-induced mood disorder; E11.9 Type 2 diabetes mellitus without complications; Z79.4 Long term (current) use of insulin; Z62.810 Personal history of physical and sexual abuse in childhood
CPT/HCPCS: 82962; Q0162

== ENCOUNTER 2022-04-15 01:13 | Inpatient (IN) | payer OTHER ==
[2022-04-15] MEDS ORDERED: ALBUTEROL SO4 HFA INHALER IH PRN (01:35)
[2022-04-15] MEDS ORDERED: MAGNESIUM HYDROX 2400MG/30ML ORAL SUSPENSION 30 ML CUP PO PRN (01:42)
[2022-04-15] MEDS ORDERED: BISMUTH SUBSALICYLATE 524 MG/30 ML PO PRN (01:42)
[2022-04-15] MEDS ORDERED: IBUPROFEN 600 MG TABLET (FP) PO PRN (01:42)
[2022-04-15] MEDS ORDERED: BENZOCAINE/MENTHOL (CHLORASEPTIC ) LOZENGE MM PRN (01:42)
[2022-04-15] MEDS ORDERED: LOPERAMIDE HCL 2 MG CAPSULE PO PRN (01:42)
[2022-04-15] MEDS ORDERED: MELATONIN 5 MG TABLETS PO PRN (01:42)
[2022-04-15] MEDS ORDERED: DICYCLOMINE HCL 10 MG CAPSULE PO PRN (01:42)
[2022-04-15] MEDS ORDERED: METHOCARBAMOL 500 MG TABLET PO PRN (01:42)
[2022-04-15] MEDS ORDERED: MAG HYDROX/AL HYDROX/SIMETH 30 ML UNIT-DOSE CUP PO PRN (01:42)
[2022-04-15] MEDS ORDERED: IBUPROFEN 400 MG TABLET (FP) PO PRN (01:42)
[2022-04-15] MEDS ORDERED: guaiFENesin 200 MG/10 ML 10 ML UNIT-DOSE CUPS PO PRN (01:42)
[2022-04-15] MEDS ORDERED: P-EPHED 60MG/TRIPROLIDI 2.5MG TABLET PO PRN (01:42)
[2022-04-15] MEDS ORDERED: POLYETHYLENE GLYCOL (HEALTHYLAX) 3350 17 GM PACKET PO PRN (01:42)
[2022-04-15] MEDS ORDERED: ACETAMINOPHEN 325 MG TABLET (FP) PO PRN ×2 (01:42)
[2022-04-15] MEDS ORDERED: ONDANSETRON *ODT* 4 MG TABLET SL PRN (01:42)
[2022-04-15] MEDS ORDERED: diazePAM 5 MG TABLET PO PRN (01:44)
[2022-04-15 02:29] VITALS: BMI 25.2
[2022-04-15] MEDS: BACITRACIN 15 GM TUBE TOPICAL OINTMENT TP SCH ×3 (03:28→21:21)
[2022-04-15] MEDS: INSULIN SLIDING SCALE (NOVOLOG) 1 VIAL SQ SCH ×5 (03:28→21:21)
[2022-04-15] MEDS: diazePAM 5 MG TABLET PO SCH ×4 (06:18→22:20)
[2022-04-15] MEDS: PRENATAL VITAMINS W/ FOLIC ACID TABLET (FP) PO SCH (10:43)
[2022-04-15] MEDS ORDERED: INSULIN SLIDING SCALE (NOVOLOG) 1 VIAL SQ ONE (11:53)
[2022-04-15] MEDS: hydrOXYzine PAMOATE 25 MG CAPSULE (FP) PO PRN (21:22)
[2022-04-15] MEDS: THIAMINE HCL 100 MG TABLET (FP) PO SCH (22:21)
[2022-04-16] MEDS: diazePAM 5 MG TABLET PO SCH ×2 (06:19→17:52)
[2022-04-16] MEDS: INSULIN SLIDING SCALE (NOVOLOG) 1 VIAL SQ SCH ×4 (06:50→21:39)
[2022-04-16] MEDS: PRENATAL VITAMINS W/ FOLIC ACID TABLET (FP) PO SCH (11:01)
[2022-04-16] MEDS: BACITRACIN 15 GM TUBE TOPICAL OINTMENT TP SCH ×2 (11:01→21:39)
[2022-04-16] MEDS: hydrOXYzine PAMOATE 25 MG CAPSULE (FP) PO PRN (17:51)
[2022-04-16] MEDS: THIAMINE HCL 100 MG TABLET (FP) PO SCH (21:40)
[2022-04-17] MEDS ORDERED: diazePAM 5 MG TABLET PO ONE (06:00)
[2022-04-17] MEDS: INSULIN SLIDING SCALE (NOVOLOG) 1 VIAL SQ SCH ×3 (06:31→17:03)
[2022-04-17] MEDS: PRENATAL VITAMINS W/ FOLIC ACID TABLET (FP) PO SCH (11:01)
[2022-04-17] MEDS: BACITRACIN 15 GM TUBE TOPICAL OINTMENT TP SCH (12:28)
[2022-04-17 13:29] VITALS: RESP 18
[2022-04-17 17:21] VITALS: BP 131/90; PULSE 73; TEMP 98.2
[2022-04-17] MEDS ORDERED: INSULIN (LEVEMIR) 100 UNITS/ML UNITS SQ SCH (22:00)
== END 2022-04-17 17:20 | disposition left against medical advice (07) | DRG 770 ==
LOC: YASAS 01:13 → Y6N 01:56 → Y3N 02:18
PROVIDERS: ADMIT Allergy & Immunology; ATTEND Surgery
PROC: HZ2ZZZZ Detoxification Services for Substance Abuse Treatment (ICD-10-PCS; principal; 2022-04-15)
DX: F10.230 Alcohol dependence with withdrawal, uncomplicated (principal); F14.20 Cocaine dependence, uncomplicated; F12.20 Cannabis dependence, uncomplicated; F31.81 Bipolar II disorder; F25.9 Schizoaffective disorder, unspecified; F41.9 Anxiety disorder, unspecified; U07.1 COVID-19; E11.65 Type 2 diabetes mellitus with hyperglycemia; Z79.4 Long term (current) use of insulin; Z91.013 Allergy to seafood
CPT/HCPCS: 82962; 87811; C9803-CS; U0003; U0005

== ENCOUNTER 2022-04-19 02:39 | Inpatient (IN) | payer OTHER ==
[2022-04-19 03:56] VITALS: BMI 25.4
[2022-04-19] MEDS ORDERED: MAGNESIUM HYDROX 2400MG/30ML ORAL SUSPENSION 30 ML CUP PO PRN (05:12)
[2022-04-19] MEDS ORDERED: NICOTINE POLACRILEX 2 MG GUM BUC PRN (05:12)
[2022-04-19] MEDS ORDERED: BISMUTH SUBSALICYLATE 524 MG/30 ML PO PRN (05:12)
[2022-04-19] MEDS ORDERED: MAG HYDROX/AL HYDROX/SIMETH 30 ML UNIT-DOSE CUP PO PRN (05:12)
[2022-04-19] MEDS ORDERED: BENZOCAINE/MENTHOL (CHLORASEPTIC ) LOZENGE MM PRN (05:12)
[2022-04-19] MEDS ORDERED: ACETAMINOPHEN 325 MG TABLET (FP) PO PRN ×2 (05:12)
[2022-04-19] MEDS ORDERED: POLYETHYLENE GLYCOL (HEALTHYLAX) 3350 17 GM PACKET PO PRN (05:12)
[2022-04-19] MEDS ORDERED: METHOCARBAMOL 500 MG TABLET PO PRN (05:12)
[2022-04-19] MEDS ORDERED: LOPERAMIDE HCL 2 MG CAPSULE PO PRN (05:12)
[2022-04-19] MEDS ORDERED: DICYCLOMINE HCL 10 MG CAPSULE PO PRN (05:12)
[2022-04-19] MEDS ORDERED: IBUPROFEN 600 MG TABLET (FP) PO PRN (05:12)
[2022-04-19] MEDS ORDERED: ONDANSETRON *ODT* 4 MG TABLET SL PRN (05:12)
[2022-04-19] MEDS ORDERED: NALOXONE HCL (KLOXXADO) 8 MG SPRAY NS PRN (05:12)
[2022-04-19] MEDS ORDERED: IBUPROFEN 400 MG TABLET (FP) PO PRN (05:12)
[2022-04-19] MEDS: chlordiazePOXIDE HCL 25 MG CAPSULE PO SCH ×3 (10:22→22:28)
[2022-04-19] MEDS: NICOTINE 14 MG/24 HOURS TOPICAL PATCH TD SCH (10:22)
[2022-04-19] MEDS: PRENATAL VITAMINS W/ FOLIC ACID TABLET (FP) PO SCH (10:22)
[2022-04-19] MEDS ORDERED: ALBUTEROL SO4 HFA INHALER IH PRN (10:39)
[2022-04-19] MEDS: INSULIN SLIDING SCALE (NOVOLOG) 1 VIAL SQ SCH ×3 (11:23→22:29)
[2022-04-19 15:25] LABS: HEMATOCRIT 47.6 % (35.4-49); HEMOGLOBIN 15.7 GM/dL (11.7-16.9); MCH 30.2 pg (25.7-33.7); MCHC 32.9 g/dl (32.0-35.9); MEAN CELL VOLUME 91.5 fl (80-96); MEAN PLT VOLUME 11.6 fl (7.5-11.1); PLATELET COUNT 177 10^3/uL (134-434); RDW 13.6 % (11.9-15.9); WHITE BLOOD COUNT 6.2 K/mm3 (4.0-10.0)
[2022-04-19 16:20] LABS: CHLORIDE 96 mmol/L (98-107); SODIUM 134 mmol/L (136-145)
[2022-04-19 16:27] LABS: ALBUMIN 3.7 g/dl (3.4-5.0); ANION GAP 10 MMOL/L (8-16); BLOOD UREA NITROGEN 18.5 mg/dL (7-18); CO2 28 mmol/L (21-32)
[2022-04-19 16:28] LABS: SGPT/ALT 24 U/L (13-61)
[2022-04-19 16:29] LABS: CREATININE 1.2 mg/dL (0.55-1.3)
[2022-04-19 16:30] LABS: SGOT/AST 21 U/L (15-37); TOT PROT 7.1 g/dl (6.4-8.2)
[2022-04-19 16:31] LABS: ALK PHOS 60 U/L (45-117)
[2022-04-19 16:32] LABS: GLUCOSE,RANDOM 475 mg/dL (74-106)
[2022-04-19] MEDS: THIAMINE HCL 100 MG TABLET (FP) PO SCH (22:28)
[2022-04-19] MEDS: MELATONIN 5 MG TABLETS PO SCH (22:28)
[2022-04-19] MEDS: INSULIN (LEVEMIR) 100 UNITS/ML UNITS SQ SCH (22:29)
[2022-04-20] MEDS: chlordiazePOXIDE HCL 25 MG CAPSULE PO SCH ×5 (05:35→22:25)
[2022-04-20] MEDS: INSULIN SLIDING SCALE (NOVOLOG) 1 VIAL SQ SCH ×4 (06:14→22:25)
[2022-04-20] MEDS: PRENATAL VITAMINS W/ FOLIC ACID TABLET (FP) PO SCH (11:03)
[2022-04-20] MEDS: NICOTINE 14 MG/24 HOURS TOPICAL PATCH TD SCH (11:03)
[2022-04-20] MEDS: INSULIN (NOVOLOG) ASPART 100 UNITS/ML 10ML VIAL SQ SCH ×2 (11:04→17:27)
[2022-04-20] MEDS: QUEtiapine FUMARATE 200 MG TABLET PO SCH (22:25)
[2022-04-20] MEDS: MELATONIN 5 MG TABLETS PO SCH (22:25)
[2022-04-20] MEDS: INSULIN (LEVEMIR) 100 UNITS/ML UNITS SQ SCH (22:25)
[2022-04-20] MEDS: THIAMINE HCL 100 MG TABLET (FP) PO SCH (22:26)
[2022-04-21] MEDS: chlordiazePOXIDE HCL 25 MG CAPSULE PO SCH ×4 (05:55→22:42)
[2022-04-21] MEDS: INSULIN SLIDING SCALE (NOVOLOG) 1 VIAL SQ SCH ×4 (06:50→22:44)
[2022-04-21] MEDS: INSULIN (NOVOLOG) ASPART 100 UNITS/ML 10ML VIAL SQ SCH ×3 (06:53→16:39)
[2022-04-21] MEDS: PRENATAL VITAMINS W/ FOLIC ACID TABLET (FP) PO SCH (10:03)
[2022-04-21] MEDS: NICOTINE 14 MG/24 HOURS TOPICAL PATCH TD SCH (10:04)
[2022-04-21 17:20] VITALS: RESP 18
[2022-04-21] MEDS: QUEtiapine FUMARATE 200 MG TABLET PO SCH (22:42)
[2022-04-21] MEDS: THIAMINE HCL 100 MG TABLET (FP) PO SCH (22:43)
[2022-04-21] MEDS: MELATONIN 5 MG TABLETS PO SCH (22:44)
[2022-04-21] MEDS: INSULIN (LEVEMIR) 100 UNITS/ML UNITS SQ SCH (22:44)
[2022-04-22] MEDS: chlordiazePOXIDE HCL 10 MG CAPSULE PO SCH ×4 (06:00→22:23)
[2022-04-22] MEDS: INSULIN (NOVOLOG) ASPART 100 UNITS/ML 10ML VIAL SQ SCH ×3 (06:24→17:22)
[2022-04-22] MEDS: INSULIN SLIDING SCALE (NOVOLOG) 1 VIAL SQ SCH ×4 (06:25→22:15)
[2022-04-22] MEDS ORDERED: INSULIN (LEVEMIR) 100 UNITS/ML UNITS SQ SCH (10:27)
[2022-04-22] MEDS: PRENATAL VITAMINS W/ FOLIC ACID TABLET (FP) PO SCH (10:35)
[2022-04-22] MEDS: NICOTINE 14 MG/24 HOURS TOPICAL PATCH TD SCH (10:36)
[2022-04-22] MEDS: QUEtiapine FUMARATE 200 MG TABLET PO SCH (22:14)
[2022-04-22] MEDS: THIAMINE HCL 100 MG TABLET (FP) PO SCH (22:14)
[2022-04-22] MEDS: MELATONIN 5 MG TABLETS PO SCH (22:18)
[2022-04-23] MEDS: chlordiazePOXIDE HCL 10 MG CAPSULE PO SCH ×2 (05:55→06:27)
[2022-04-23 06:05] VITALS: BP 124/72; PULSE 69; TEMP 97.5
[2022-04-23] MEDS: INSULIN (NOVOLOG) ASPART 100 UNITS/ML 10ML VIAL SQ SCH ×2 (06:26→07:47)
[2022-04-23] MEDS: INSULIN SLIDING SCALE (NOVOLOG) 1 VIAL SQ SCH ×2 (06:26→07:47)
[2022-04-24] MEDS ORDERED: chlordiazePOXIDE HCL 10 MG CAPSULE PO ONE (05:00)
== END 2022-04-23 07:15 | disposition left against medical advice (07) | DRG 770 ==
LOC: YASAS 02:39 → Y3N 08:42
PROVIDERS: ADMIT Allergy & Immunology; ATTEND Surgery
PROC: HZ2ZZZZ Detoxification Services for Substance Abuse Treatment (ICD-10-PCS; principal; 2022-04-19)
DX: F10.230 Alcohol dependence with withdrawal, uncomplicated (principal); F14.20 Cocaine dependence, uncomplicated; F16.20 Hallucinogen dependence, uncomplicated; F12.20 Cannabis dependence, uncomplicated; F17.210 Nicotine dependence, cigarettes, uncomplicated; F31.81 Bipolar II disorder; F25.9 Schizoaffective disorder, unspecified; F19.282 Other psychoactive substance dependence with psychoactive substance-induced sleep disorder; F19.24 Other psychoactive substance dependence with psychoactive substance-induced mood disorder; F43.10 Post-traumatic stress disorder, unspecified; U07.1 COVID-19; J45.909 Unspecified asthma, uncomplicated; E11.65 Type 2 diabetes mellitus with hyperglycemia; Z79.4 Long term (current) use of insulin; R76.8 Other specified abnormal immunological findings in serum; Z86.19 Personal history of other infectious and parasitic diseases; Z56.0 Unemployment, unspecified; Z59.00 Homelessness unspecified; Z91.199 Patient's noncompliance with other medical treatment and regimen due to unspecified reason
CPT/HCPCS: 36415; 80053; 82962; 85027; 86593; 86780; C9803-CS; Q0162; U0003; U0005

== ENCOUNTER 2022-04-29 18:48 | Inpatient (IN) | payer OTHER ==
[2022-04-29 21:32] VITALS: BMI 26.3
[2022-04-30] MEDS ORDERED: ACETAMINOPHEN 325 MG TABLET (FP) PO PRN ×2 (00:42)
[2022-04-30] MEDS ORDERED: MAG HYDROX/AL HYDROX/SIMETH 30 ML UNIT-DOSE CUP PO PRN (00:42)
[2022-04-30] MEDS ORDERED: NALOXONE HCL (KLOXXADO) 8 MG SPRAY NS PRN (00:42)
[2022-04-30] MEDS ORDERED: BENZOCAINE/MENTHOL (CHLORASEPTIC ) LOZENGE MM PRN (00:42)
[2022-04-30] MEDS ORDERED: BISMUTH SUBSALICYLATE 524 MG/30 ML PO PRN (00:42)
[2022-04-30] MEDS ORDERED: LOPERAMIDE HCL 2 MG CAPSULE PO PRN (00:42)
[2022-04-30] MEDS ORDERED: POLYETHYLENE GLYCOL (HEALTHYLAX) 3350 17 GM PACKET PO PRN (00:42)
[2022-04-30] MEDS ORDERED: DICYCLOMINE HCL 10 MG CAPSULE PO PRN (00:42)
[2022-04-30] MEDS ORDERED: MAGNESIUM HYDROX 2400MG/30ML ORAL SUSPENSION 30 ML CUP PO PRN (00:42)
[2022-04-30] MEDS ORDERED: NICOTINE 10 MG CARTRIDGE (INHALER) IH PRN (00:42)
[2022-04-30] MEDS ORDERED: IBUPROFEN 400 MG TABLET (FP) PO PRN (00:42)
[2022-04-30] MEDS ORDERED: IBUPROFEN 600 MG TABLET (FP) PO PRN (00:42)
[2022-04-30] MEDS ORDERED: ONDANSETRON *ODT* 4 MG TABLET SL PRN (00:42)
[2022-04-30] MEDS ORDERED: INSULIN (NOVOLOG) ASPART 100 UNITS/ML 10ML VIAL ONE (07:59)
[2022-04-30] MEDS: INSULIN SLIDING SCALE (NOVOLOG) 1 VIAL SQ SCH ×2 (08:02→17:27)
[2022-04-30] MEDS: PRENATAL VITAMINS W/ FOLIC ACID TABLET (FP) PO SCH (10:27)
[2022-04-30] MEDS: NICOTINE 21 MG/24 HOURS TOPICAL PATCH TD SCH (10:28)
[2022-04-30] MEDS: METHOCARBAMOL 500 MG TABLET PO PRN ×2 (10:29→17:28)
[2022-04-30] MEDS ORDERED: THIAMINE HCL 100 MG TABLET (FP) PO SCH (22:00)
[2022-04-30] MEDS ORDERED: MELATONIN 5 MG TABLETS PO SCH (22:00)
[2022-05-01] MEDS: INSULIN SLIDING SCALE (NOVOLOG) 1 VIAL SQ SCH (07:21)
[2022-05-01] MEDS ORDERED: INSULIN (NOVOLOG) ASPART 100 UNITS/ML 10ML VIAL ONE (07:56)
[2022-05-01 09:34] VITALS: BP 138/89; PULSE 67; RESP 18; TEMP 98
[2022-05-01] MEDS: NICOTINE 21 MG/24 HOURS TOPICAL PATCH TD SCH (10:25)
[2022-05-01] MEDS: PRENATAL VITAMINS W/ FOLIC ACID TABLET (FP) PO SCH (10:25)
[2022-05-01] MEDS ORDERED: ALBUTEROL SO4 HFA INHALER IH PRN (10:29)
[2022-05-01 11:17] LABS: HEMATOCRIT 45.6 % (35.4-49); MCH 30.2 pg (25.7-33.7); MEAN CELL VOLUME 91.5 fl (80-96); MEAN PLT VOLUME 12.2 fl (7.5-11.1); PLATELET COUNT 174 10^3/uL (134-434); RBC 4.98 M/mm3 (4.00-5.60); RDW 13.8 % (11.9-15.9)
[2022-05-01 15:28] LABS: CALCIUM 9.3 mg/dL (8.5-10.1)
[2022-05-01 15:29] LABS: ALBUMIN 3.7 g/dl (3.4-5.0); BLOOD UREA NITROGEN 13.2 mg/dL (7-18)
[2022-05-01 15:32] LABS: CREATININE 1.1 mg/dL (0.55-1.3)
[2022-05-01 15:33] LABS: BILIRUBIN,TOTAL 1.2 mg/dL (0.2-1)
[2022-05-02] MEDS ORDERED: INSULIN (LEVEMIR) 100 UNITS/ML UNITS SQ SCH (07:00)
== END 2022-05-01 09:39 | disposition other institution (70) | DRG 775 ==
LOC: YASAS 18:48 → Y6N 04-30 02:21
PROVIDERS: ADMIT Allergy & Immunology; ATTEND Surgery
PROC: HZ2ZZZZ Detoxification Services for Substance Abuse Treatment (ICD-10-PCS; principal; 2022-04-30)
DX: F10.230 Alcohol dependence with withdrawal, uncomplicated (principal); F17.210 Nicotine dependence, cigarettes, uncomplicated; F31.81 Bipolar II disorder; F25.9 Schizoaffective disorder, unspecified; F42.9 Obsessive-compulsive disorder, unspecified; E10.9 Type 1 diabetes mellitus without complications; Z79.4 Long term (current) use of insulin; J45.909 Unspecified asthma, uncomplicated; Z86.19 Personal history of other infectious and parasitic diseases
CPT/HCPCS: 36415; 80053; 82962; 85027; 86593; 86780; C9803-CS; U0003; U0005

== ENCOUNTER 2022-05-03 18:02 | Inpatient (IN) | payer OTHER ==
[2022-05-03 18:41] VITALS: BMI 25.8
[2022-05-03] MEDS ORDERED: BENZOCAINE/MENTHOL (CHLORASEPTIC ) LOZENGE MM PRN (19:31)
[2022-05-03] MEDS ORDERED: MAG HYDROX/AL HYDROX/SIMETH 30 ML UNIT-DOSE CUP PO PRN (19:31)
[2022-05-03] MEDS ORDERED: POLYETHYLENE GLYCOL (HEALTHYLAX) 3350 17 GM PACKET PO PRN (19:31)
[2022-05-03] MEDS ORDERED: P-EPHED 60MG/TRIPROLIDI 2.5MG TABLET PO PRN (19:31)
[2022-05-03] MEDS ORDERED: IBUPROFEN 400 MG TABLET (FP) PO PRN (19:31)
[2022-05-03] MEDS ORDERED: NICOTINE 10 MG CARTRIDGE (INHALER) IH PRN (19:31)
[2022-05-03] MEDS ORDERED: MAGNESIUM HYDROX 2400MG/30ML ORAL SUSPENSION 30 ML CUP PO PRN (19:31)
[2022-05-03] MEDS ORDERED: guaiFENesin 200 MG/10 ML 10 ML UNIT-DOSE CUPS PO PRN (19:31)
[2022-05-03] MEDS ORDERED: LOPERAMIDE HCL 2 MG CAPSULE PO PRN (19:31)
[2022-05-03] MEDS ORDERED: INSULIN SLIDING SCALE (NOVOLOG) 1 VIAL SQ ONE (20:53)
[2022-05-03] MEDS: INSULIN SLIDING SCALE (NOVOLOG) 1 VIAL SQ SCH (21:15)
[2022-05-03] MEDS: MELATONIN 5 MG TABLETS PO SCH (23:08)
[2022-05-03] MEDS: THIAMINE HCL 100 MG TABLET (FP) PO SCH (23:08)
[2022-05-03] MEDS: PRENATAL VITAMINS W/ FOLIC ACID TABLET (FP) PO SCH (23:09)
[2022-05-03] MEDS: NICOTINE 7 MG/24 HOURS TOPICAL PATCH TD SCH (23:10)
[2022-05-04] MEDS ORDERED: INSULIN (NOVOLOG) ASPART 100 UNITS/ML 10ML VIAL ONE ×4 (06:23→12:07)
[2022-05-04] MEDS: INSULIN SLIDING SCALE (NOVOLOG) 1 VIAL SQ SCH ×4 (06:31→21:46)
[2022-05-04] MEDS: PRENATAL VITAMINS W/ FOLIC ACID TABLET (FP) PO SCH (09:52)
[2022-05-04] MEDS: hydrOXYzine PAMOATE 25 MG CAPSULE (FP) PO PRN ×2 (09:52→21:42)
[2022-05-04] MEDS: NICOTINE 7 MG/24 HOURS TOPICAL PATCH TD SCH (09:53)
[2022-05-04] MEDS ORDERED: ONDANSETRON *ODT* 4 MG TABLET SL PRN (13:06)
[2022-05-04] MEDS: THIAMINE HCL 100 MG TABLET (FP) PO SCH (21:42)
[2022-05-04] MEDS: MELATONIN 5 MG TABLETS PO SCH (21:44)
[2022-05-04] MEDS: QUEtiapine FUMARATE 100 MG TABLET (FP) PO SCH (21:45)
[2022-05-05] MEDS: INSULIN SLIDING SCALE (NOVOLOG) 1 VIAL SQ SCH ×4 (07:06→21:37)
[2022-05-05] MEDS ORDERED: INSULIN (NOVOLOG) ASPART 100 UNITS/ML 10ML VIAL ONE ×2 (07:10→11:26)
[2022-05-05] MEDS ORDERED: ALBUTEROL SO4 HFA INHALER IH PRN (08:59)
[2022-05-05] MEDS: NICOTINE 7 MG/24 HOURS TOPICAL PATCH TD SCH (09:48)
[2022-05-05] MEDS: hydrOXYzine PAMOATE 25 MG CAPSULE (FP) PO PRN ×2 (09:49→21:37)
[2022-05-05] MEDS: PRENATAL VITAMINS W/ FOLIC ACID TABLET (FP) PO SCH (09:49)
[2022-05-05 10:25] LABS: URINE APPEARANCE CLEAR; URINE BILIRUBIN NEGATIVE (NEGATIVE); URINE COLOR YELLOW; URINE GLUCOSE (UA) 3+ (NEGATIVE); URINE KETONE NEGATIVE (NEGATIVE); URINE LEUK ESTERASE NEGATIVE (NEGATIVE); URINE NITRITE NEGATIVE (NEGATIVE); URINE PROTEIN NEGATIVE (NEGATIVE); URINE UROBILINOGEN 0.2 mg/dL (0.2-1.0)
[2022-05-05 10:31] LABS: HEMATOCRIT 45.2 % (35.4-49); HEMOGLOBIN 14.9 GM/dL (11.7-16.9); MCH 30.4 pg (25.7-33.7); MEAN CELL VOLUME 91.9 fl (80-96); MEAN PLT VOLUME 12.1 fl (7.5-11.1); PLATELET COUNT 174 10^3/uL (134-434); RBC 4.91 M/mm3 (4.00-5.60); RDW 13.6 % (11.9-15.9); WHITE BLOOD COUNT 5.3 K/mm3 (4.0-10.0)
[2022-05-05 11:26] LABS: CALCIUM 9.1 mg/dL (8.5-10.1)
[2022-05-05 11:27] LABS: ALBUMIN 3.4 g/dl (3.4-5.0); BLOOD UREA NITROGEN 15.9 mg/dL (7-18)
[2022-05-05 11:30] LABS: CREATININE 1.1 mg/dL (0.55-1.3)
[2022-05-05 11:32] LABS: BILIRUBIN,TOTAL 0.6 mg/dL (0.2-1); TOT PROT 6.3 g/dl (6.4-8.2)
[2022-05-05] MEDS: QUEtiapine FUMARATE 100 MG TABLET (FP) PO SCH (21:37)
[2022-05-05] MEDS: THIAMINE HCL 100 MG TABLET (FP) PO SCH (21:37)
[2022-05-05] MEDS: INSULIN (LEVEMIR) 100 UNITS/ML UNITS SQ SCH (21:38)
[2022-05-05] MEDS: MELATONIN 5 MG TABLETS PO SCH (21:40)
[2022-05-06 07:05] VITALS: BP 107/67; PULSE 76; RESP 18; TEMP 97.1
[2022-05-06] MEDS: INSULIN SLIDING SCALE (NOVOLOG) 1 VIAL SQ SCH ×4 (08:01→22:41)
[2022-05-06] MEDS ORDERED: INSULIN (NOVOLOG) ASPART 100 UNITS/ML 10ML VIAL ONE ×3 (08:22→16:47)
[2022-05-06] MEDS: PRENATAL VITAMINS W/ FOLIC ACID TABLET (FP) PO SCH (09:27)
[2022-05-06] MEDS: NICOTINE 7 MG/24 HOURS TOPICAL PATCH TD SCH (09:27)
[2022-05-06] MEDS: INSULIN (LEVEMIR) 100 UNITS/ML UNITS SQ SCH (21:48)
[2022-05-06] MEDS: MELATONIN 5 MG TABLETS PO SCH (21:49)
[2022-05-06] MEDS: THIAMINE HCL 100 MG TABLET (FP) PO SCH (21:50)
[2022-05-06] MEDS: QUEtiapine FUMARATE 100 MG TABLET (FP) PO SCH (21:50)
== END 2022-05-06 17:10 | disposition home or self-care (01) | DRG 774 ==
LOC: YASAS 18:02 → Y3E 22:00
PROVIDERS: ADMIT Allergy & Immunology; ATTEND Psychiatry & Neurology Pain Medicine
PROC: HZ2ZZZZ Detoxification Services for Substance Abuse Treatment (ICD-10-PCS; principal; 2022-05-03)
DX: F10.230 Alcohol dependence with withdrawal, uncomplicated (principal); F14.20 Cocaine dependence, uncomplicated; F17.213 Nicotine dependence, cigarettes, with withdrawal; F25.9 Schizoaffective disorder, unspecified; F31.81 Bipolar II disorder; F19.282 Other psychoactive substance dependence with psychoactive substance-induced sleep disorder; F19.24 Other psychoactive substance dependence with psychoactive substance-induced mood disorder; J45.909 Unspecified asthma, uncomplicated; E11.9 Type 2 diabetes mellitus without complications; Z79.4 Long term (current) use of insulin; Z62.810 Personal history of physical and sexual abuse in childhood; Z86.16 Personal history of COVID-19; Z86.19 Personal history of other infectious and parasitic diseases; Z56.0 Unemployment, unspecified; Z59.00 Homelessness unspecified; Z88.6 Allergy status to analgesic agent; Z91.018 Allergy to other foods; Z91.013 Allergy to seafood
CPT/HCPCS: 36415; 80053; 81003; 82962; 85027; 86593; 86780; 87811; C9803-CS; Q0162; U0003; U0005

== ENCOUNTER 2022-08-04 09:54 | Inpatient (IN) | payer OTHER ==
[2022-08-04 10:24] VITALS: BMI 25.0
[2022-08-04] MEDS ORDERED: IBUPROFEN 600 MG TABLET (FP) PO PRN (11:04)
[2022-08-04] MEDS ORDERED: NICOTINE POLACRILEX 2 MG GUM BUC PRN (11:04)
[2022-08-04] MEDS ORDERED: LOPERAMIDE HCL 2 MG CAPSULE PO PRN (11:04)
[2022-08-04] MEDS ORDERED: BISMUTH SUBSALICYLATE 262 MG/15 ML BTL PO PRN (11:04)
[2022-08-04] MEDS ORDERED: NICOTINE 7 MG/24 HOURS TOPICAL PATCH TD PRN (11:04)
[2022-08-04] MEDS ORDERED: ACETAMINOPHEN 325 MG TABLET (FP) PO PRN ×2 (11:04)
[2022-08-04] MEDS ORDERED: IBUPROFEN 400 MG TABLET (FP) PO PRN (11:04)
[2022-08-04] MEDS ORDERED: MAGNESIUM HYDROX 2400MG/30ML ORAL SUSPENSION 30 ML CUP PO PRN (11:04)
[2022-08-04] MEDS ORDERED: MAG HYDROX/AL HYDROX/SIMETH 30 ML UNIT-DOSE CUP PO PRN (11:04)
[2022-08-04] MEDS ORDERED: BENZOCAINE/MENTHOL (CHLORASEPTIC ) LOZENGE MM PRN (11:04)
[2022-08-04] MEDS ORDERED: POLYETHYLENE GLYCOL (HEALTHYLAX) 3350 17 GM PACKET PO PRN (11:04)
[2022-08-04] MEDS ORDERED: DICYCLOMINE HCL 10 MG CAPSULE PO PRN (11:04)
[2022-08-04] MEDS ORDERED: NICOTINE 10 MG CARTRIDGE (INHALER) IH PRN (11:04)
[2022-08-04] MEDS ORDERED: ONDANSETRON *ODT* 4 MG TABLET SL PRN (11:04)
[2022-08-04] MEDS ORDERED: ALBUTEROL SO4 HFA INHALER IH PRN (11:08)
[2022-08-04] MEDS ORDERED: TRIMETHOBENZAMIDE HCL 200MG/2ML INJ IM PRN (11:19)
[2022-08-04] MEDS ORDERED: ONDANSETRON *ODT* 4 MG TABLET ONE (12:01)
[2022-08-04] MEDS ORDERED: INSULIN (NOVOLOG) ASPART 100 UNITS/ML 10ML VIAL ONE (16:57)
[2022-08-04] MEDS: diazePAM 5 MG TABLET PO SCH ×2 (17:19→22:26)
[2022-08-04] MEDS: metFORMIN HCL 500 MG TABLET (FP) PO SCH (17:19)
[2022-08-04] MEDS: INSULIN SLIDING SCALE (NOVOLOG) 1 VIAL SQ SCH ×2 (17:57→22:26)
[2022-08-04] MEDS: FAMOTIDINE 20 MG TABLET PO SCH (22:26)
[2022-08-04] MEDS: MELATONIN 5 MG TABLETS PO SCH (22:26)
[2022-08-04] MEDS: THIAMINE HCL 100 MG TABLET (FP) PO SCH (22:26)
[2022-08-05] MEDS: diazePAM 5 MG TABLET PO SCH ×4 (06:00→21:59)
[2022-08-05] MEDS: metFORMIN HCL 500 MG TABLET (FP) PO SCH ×2 (06:38→16:41)
[2022-08-05] MEDS: INSULIN SLIDING SCALE (NOVOLOG) 1 VIAL SQ SCH ×5 (06:40→21:58)
[2022-08-05] MEDS: PRENATAL VITAMINS W/ FOLIC ACID TABLET (FP) PO SCH (10:21)
[2022-08-05] MEDS: hydrOXYzine PAMOATE 25 MG CAPSULE (FP) PO PRN (10:21)
[2022-08-05] MEDS: FAMOTIDINE 20 MG TABLET PO SCH ×2 (10:21→21:59)
[2022-08-05] MEDS: ASPIRIN 81 MG CHEWABLE TABLETS PO SCH (10:21)
[2022-08-05] MEDS: METHOCARBAMOL 500 MG TABLET PO PRN (10:21)
[2022-08-05 12:15] LABS: HEMATOCRIT 43.3 % (35.4-49); HEMOGLOBIN 14.6 GM/dL (11.7-16.9); MCH 31.6 pg (25.7-33.7); MCHC 33.6 g/dl (32.0-35.9); MEAN CELL VOLUME 94.1 fl (80-96); PLATELET COUNT 131 10^3/uL (134-434); RDW 13.7 % (11.9-15.9); WHITE BLOOD COUNT 6.7 K/mm3 (4.0-10.0)
[2022-08-05 12:27] LABS: CALCIUM 9.1 mg/dL (8.5-10.1)
[2022-08-05 12:28] LABS: ALBUMIN 3.4 g/dl (3.4-5.0); BLOOD UREA NITROGEN 13.5 mg/dL (7-18)
[2022-08-05 12:33] LABS: BILIRUBIN,TOTAL 0.8 mg/dL (0.2-1); TOT PROT 6.7 g/dl (6.4-8.2)
[2022-08-05] MEDS ORDERED: INSULIN (NOVOLOG) ASPART 100 UNITS/ML 10ML VIAL ONE (16:41)
[2022-08-05] MEDS: MELATONIN 5 MG TABLETS PO SCH (21:59)
[2022-08-05] MEDS: THIAMINE HCL 100 MG TABLET (FP) PO SCH (21:59)
[2022-08-06] MEDS: diazePAM 5 MG TABLET PO SCH ×3 (05:39→22:51)
[2022-08-06] MEDS: INSULIN SLIDING SCALE (NOVOLOG) 1 VIAL SQ SCH ×4 (06:39→23:03)
[2022-08-06] MEDS: metFORMIN HCL 500 MG TABLET (FP) PO SCH ×2 (06:39→16:46)
[2022-08-06] MEDS: ASPIRIN 81 MG CHEWABLE TABLETS PO SCH (10:25)
[2022-08-06] MEDS: PRENATAL VITAMINS W/ FOLIC ACID TABLET (FP) PO SCH (10:25)
[2022-08-06] MEDS: diazePAM 5 MG TABLET PO PRN ×2 (10:25→16:47)
[2022-08-06] MEDS: hydrOXYzine PAMOATE 25 MG CAPSULE (FP) PO PRN ×2 (10:25→16:47)
[2022-08-06] MEDS: FAMOTIDINE 20 MG TABLET PO SCH ×2 (10:25→22:51)
[2022-08-06] MEDS ORDERED: INSULIN (NOVOLOG) ASPART 100 UNITS/ML 10ML VIAL ONE ×2 (16:46→23:02)
[2022-08-06] MEDS: METHOCARBAMOL 500 MG TABLET PO PRN (16:47)
[2022-08-06] MEDS ORDERED: INSULIN (LEVEMIR) 100 UNITS/ML UNITS SQ SCH (22:00)
[2022-08-06] MEDS: MELATONIN 5 MG TABLETS PO SCH (22:51)
[2022-08-06] MEDS: THIAMINE HCL 100 MG TABLET (FP) PO SCH (22:51)
[2022-08-07] MEDS ORDERED: diazePAM 5 MG TABLET PO SCH (06:00)
[2022-08-07 06:14] VITALS: TEMP 97.3
[2022-08-07] MEDS: metFORMIN HCL 500 MG TABLET (FP) PO SCH (06:26)
[2022-08-07] MEDS: INSULIN SLIDING SCALE (NOVOLOG) 1 VIAL SQ SCH (07:32)
[2022-08-07 09:28] VITALS: BP 127/76; PULSE 92; RESP 18
[2022-08-07] MEDS: PRENATAL VITAMINS W/ FOLIC ACID TABLET (FP) PO SCH (10:37)
[2022-08-07] MEDS: FAMOTIDINE 20 MG TABLET PO SCH (10:37)
[2022-08-07] MEDS: ASPIRIN 81 MG CHEWABLE TABLETS PO SCH (10:37)
[2022-08-08] MEDS ORDERED: diazePAM 5 MG TABLET PO ONE (06:00)
== END 2022-08-07 11:13 | disposition left against medical advice (07) | DRG 770 ==
LOC: YASAS 09:54 → Y6N 11:30
PROVIDERS: ADMIT Allergy & Immunology; ATTEND Surgery
PROC: HZ2ZZZZ Detoxification Services for Substance Abuse Treatment (ICD-10-PCS; principal; 2022-08-04)
DX: F10.230 Alcohol dependence with withdrawal, uncomplicated (principal); F14.20 Cocaine dependence, uncomplicated; F12.20 Cannabis dependence, uncomplicated; F17.210 Nicotine dependence, cigarettes, uncomplicated; F19.280 Other psychoactive substance dependence with psychoactive substance-induced anxiety disorder; F19.282 Other psychoactive substance dependence with psychoactive substance-induced sleep disorder; F25.0 Schizoaffective disorder, bipolar type; U07.1 COVID-19; E10.9 Type 1 diabetes mellitus without complications; Z79.4 Long term (current) use of insulin; J45.909 Unspecified asthma, uncomplicated; K21.9 Gastro-esophageal reflux disease without esophagitis; Z62.810 Personal history of physical and sexual abuse in childhood; Z86.19 Personal history of other infectious and parasitic diseases; Z88.6 Allergy status to analgesic agent; Z91.014 Allergy to mammalian meats
CPT/HCPCS: 36415; 80053; 80164; 82962; 83036; 85027; 86593; 86780; C9803-CS; Q0162; U0003; U0005

== ENCOUNTER 2022-08-14 07:49 | Inpatient (IN) | payer OTHER ==
[2022-08-14 09:58] VITALS: BMI 23.8
[2022-08-14] MEDS ORDERED: BENZONATATE 200 MG CAPSULE PO PRN (10:43)
[2022-08-14] MEDS ORDERED: IBUPROFEN 400 MG TABLET (FP) PO PRN (10:43)
[2022-08-14] MEDS ORDERED: NALOXONE HCL (KLOXXADO) 8 MG SPRAY NS PRN (10:43)
[2022-08-14] MEDS ORDERED: NALOXONE HCL 0.4 MG/ML VIAL IM PRN (10:43)
[2022-08-14] MEDS ORDERED: LOPERAMIDE HCL 2 MG CAPSULE PO PRN (10:43)
[2022-08-14] MEDS ORDERED: BENZOCAINE/MENTHOL (CHLORASEPTIC ) LOZENGE MM PRN (10:43)
[2022-08-14] MEDS ORDERED: METHOCARBAMOL 500 MG TABLET PO PRN (10:43)
[2022-08-14] MEDS ORDERED: ONDANSETRON *ODT* 4 MG TABLET SL PRN (10:43)
[2022-08-14] MEDS ORDERED: MAGNESIUM HYDROX 2400MG/30ML ORAL SUSPENSION 30 ML CUP PO PRN (10:43)
[2022-08-14] MEDS ORDERED: BISMUTH SUBSALICYLATE 524 MG/30 ML PO PRN (10:43)
[2022-08-14] MEDS ORDERED: NICOTINE 10 MG CARTRIDGE (INHALER) IH PRN (10:43)
[2022-08-14] MEDS ORDERED: POLYETHYLENE GLYCOL (HEALTHYLAX) 3350 17 GM PACKET PO PRN (10:43)
[2022-08-14] MEDS ORDERED: guaiFENesin 600 MG TABLET.ER (FP) PO PRN (10:43)
[2022-08-14] MEDS ORDERED: IBUPROFEN 600 MG TABLET (FP) PO PRN (10:43)
[2022-08-14] MEDS ORDERED: DICYCLOMINE HCL 10 MG CAPSULE PO PRN (10:43)
[2022-08-14] MEDS ORDERED: MAG HYDROX/AL HYDROX/SIMETH 30 ML UNIT-DOSE CUP PO PRN (10:43)
[2022-08-14] MEDS ORDERED: hydrOXYzine PAMOATE 25 MG CAPSULE (FP) PO PRN (10:43)
[2022-08-14] MEDS ORDERED: ALBUTEROL SO4 HFA INHALER IH PRN (10:46)
[2022-08-14] MEDS: INSULIN SLIDING SCALE (NOVOLOG) 1 VIAL SQ SCH ×2 (11:45→17:25)
[2022-08-14] MEDS: metFORMIN HCL 500 MG TABLET (FP) PO SCH (17:25)
[2022-08-14] MEDS ORDERED: MELATONIN 5 MG TABLETS PO SCH (22:00)
[2022-08-14] MEDS ORDERED: INSULIN (LEVEMIR) 100 UNITS/ML UNITS SQ SCH (22:00)
[2022-08-14] MEDS ORDERED: THIAMINE HCL 100 MG TABLET (FP) PO SCH (22:00)
[2022-08-14 22:12] VITALS: TEMP 97.1
[2022-08-14] MEDS: FAMOTIDINE 20 MG TABLET PO SCH (22:45)
[2022-08-15] MEDS: metFORMIN HCL 500 MG TABLET (FP) PO SCH (06:33)
[2022-08-15] MEDS: INSULIN SLIDING SCALE (NOVOLOG) 1 VIAL SQ SCH ×2 (06:34→12:01)
[2022-08-15] MEDS ORDERED: ASPIRIN 81 MG CHEWABLE TABLETS PO SCH (10:00)
[2022-08-15] MEDS ORDERED: PRENATAL VITAMINS W/ FOLIC ACID TABLET (FP) PO SCH (10:00)
[2022-08-15] MEDS: FAMOTIDINE 20 MG TABLET PO SCH (10:29)
[2022-08-15 12:02] LABS: HEMATOCRIT 47.7 % (35.4-49); HEMOGLOBIN 16.5 GM/dL (11.7-16.9); MCH 31.1 pg (25.7-33.7); MCHC 34.5 g/dl (32.0-35.9); MEAN PLT VOLUME 11.7 fl (7.5-11.1); PLATELET COUNT 165 10^3/uL (134-434); RDW 13.7 % (11.9-15.9); WHITE BLOOD COUNT 5.7 K/mm3 (4.0-10.0)
[2022-08-15 12:25] LABS: ALBUMIN 3.7 g/dl (3.4-5.0); CALCIUM 9.5 mg/dL (8.5-10.1)
[2022-08-15 12:26] LABS: BLOOD UREA NITROGEN 15.3 mg/dL (7-18)
[2022-08-15 12:28] LABS: CREATININE 0.9 mg/dL (0.55-1.3)
[2022-08-15 12:30] LABS: BILIRUBIN,TOTAL 0.7 mg/dL (0.2-1)
[2022-08-15 12:32] LABS: TOT PROT 7.6 g/dl (6.4-8.2)
[2022-08-15 14:29] VITALS: BP 135/88; PULSE 76; RESP 17
== END 2022-08-15 13:12 | disposition home or self-care (01) | DRG 774 ==
LOC: YASAS 07:49 → Y3N 11:18 → UNDOADMIN 11:18
PROVIDERS: ADMIT Allergy & Immunology; ATTEND Surgery
PROC: HZ2ZZZZ Detoxification Services for Substance Abuse Treatment (ICD-10-PCS; principal; 2022-08-14)
DX: F10.20 Alcohol dependence, uncomplicated (principal); F14.20 Cocaine dependence, uncomplicated; F17.210 Nicotine dependence, cigarettes, uncomplicated; F31.81 Bipolar II disorder; F25.9 Schizoaffective disorder, unspecified; F41.9 Anxiety disorder, unspecified; E10.9 Type 1 diabetes mellitus without complications; Z79.4 Long term (current) use of insulin; K21.9 Gastro-esophageal reflux disease without esophagitis; Z88.6 Allergy status to analgesic agent; Z91.018 Allergy to other foods
CPT/HCPCS: 36415; 80053; 82962; 85027; 86593; 86780; 87811; C9803-CS; U0003; U0005

== ENCOUNTER 2022-08-23 16:58 | Inpatient (IN) | payer OTHER ==
[2022-08-23 17:44] VITALS: BMI 23.6
[2022-08-23] MEDS ORDERED: MAG HYDROX/AL HYDROX/SIMETH 30 ML UNIT-DOSE CUP PO PRN (18:30)
[2022-08-23] MEDS ORDERED: NALOXONE HCL (KLOXXADO) 8 MG SPRAY NS PRN (18:30)
[2022-08-23] MEDS ORDERED: ONDANSETRON *ODT* 4 MG TABLET SL PRN (18:30)
[2022-08-23] MEDS ORDERED: BENZOCAINE/MENTHOL (CHLORASEPTIC ) LOZENGE MM PRN (18:30)
[2022-08-23] MEDS ORDERED: IBUPROFEN 600 MG TABLET (FP) PO PRN (18:30)
[2022-08-23] MEDS ORDERED: hydrOXYzine PAMOATE 25 MG CAPSULE (FP) PO PRN (18:30)
[2022-08-23] MEDS ORDERED: IBUPROFEN 400 MG TABLET (FP) PO PRN (18:30)
[2022-08-23] MEDS ORDERED: chlordiazePOXIDE HCL 25 MG CAPSULE PO PRN (18:30)
[2022-08-23] MEDS ORDERED: guaiFENesin 600 MG TABLET.ER (FP) PO PRN (18:30)
[2022-08-23] MEDS ORDERED: LOPERAMIDE HCL 2 MG CAPSULE PO PRN (18:30)
[2022-08-23] MEDS ORDERED: METHOCARBAMOL 500 MG TABLET PO PRN (18:30)
[2022-08-23] MEDS ORDERED: NALOXONE HCL 0.4 MG/ML VIAL IM PRN (18:30)
[2022-08-23] MEDS ORDERED: BISMUTH SUBSALICYLATE 524 MG/30 ML PO PRN (18:30)
[2022-08-23] MEDS ORDERED: NICOTINE 10 MG CARTRIDGE (INHALER) IH PRN (18:30)
[2022-08-23] MEDS ORDERED: POLYETHYLENE GLYCOL (HEALTHYLAX) 3350 17 GM PACKET PO PRN (18:30)
[2022-08-23] MEDS ORDERED: BENZONATATE 200 MG CAPSULE PO PRN (18:30)
[2022-08-23] MEDS ORDERED: MAGNESIUM HYDROX 2400MG/30ML ORAL SUSPENSION 30 ML CUP PO PRN (18:30)
[2022-08-23] MEDS ORDERED: DICYCLOMINE HCL 10 MG CAPSULE PO PRN (18:30)
[2022-08-23] MEDS: MELATONIN 5 MG TABLETS PO SCH (22:55)
[2022-08-23] MEDS: chlordiazePOXIDE HCL 25 MG CAPSULE PO SCH (22:55)
[2022-08-23] MEDS: THIAMINE HCL 100 MG TABLET (FP) PO SCH (22:55)
[2022-08-24] MEDS: chlordiazePOXIDE HCL 25 MG CAPSULE PO SCH ×4 (05:45→22:12)
[2022-08-24] MEDS: INSULIN SLIDING SCALE (NOVOLOG) 1 VIAL SQ SCH ×3 (06:59→17:00)
[2022-08-24] MEDS ORDERED: INSULIN SLIDING SCALE (NOVOLOG) 1 VIAL SQ SCH (07:00)
[2022-08-24] MEDS ORDERED: INSULIN (NOVOLOG) ASPART 100 UNITS/ML 10ML VIAL ONE ×3 (07:02→16:59)
[2022-08-24] MEDS: NICOTINE 7 MG/24 HOURS TOPICAL PATCH TD SCH (10:49)
[2022-08-24] MEDS: PRENATAL VITAMINS W/ FOLIC ACID TABLET (FP) PO SCH (10:49)
[2022-08-24 12:01] LABS: HEMATOCRIT 44.9 % (35.4-49); HEMOGLOBIN 15.3 GM/dL (11.7-16.9); MCH 31.2 pg (25.7-33.7); MCHC 34.1 g/dl (32.0-35.9); MEAN CELL VOLUME 91.6 fl (80-96); MEAN PLT VOLUME 10.8 fl (7.5-11.1); PLATELET COUNT 221 10^3/uL (134-434); RDW 13.3 % (11.9-15.9); WHITE BLOOD COUNT 6.7 K/mm3 (4.0-10.0)
[2022-08-24 12:33] LABS: ALBUMIN 3.2 g/dl (3.4-5.0)
[2022-08-24 12:34] LABS: CALCIUM 9.2 mg/dL (8.5-10.1)
[2022-08-24 12:35] LABS: BLOOD UREA NITROGEN 8.8 mg/dL (7-18)
[2022-08-24 12:36] LABS: CREATININE 0.9 mg/dL (0.55-1.3)
[2022-08-24 12:37] LABS: TOT PROT 6.5 g/dl (6.4-8.2)
[2022-08-24] MEDS ORDERED: ALBUTEROL SO4 HFA INHALER IH PRN (18:12)
[2022-08-24] MEDS ORDERED: INSULIN (LEVEMIR) 100 UNITS/ML UNITS SQ SCH (22:00)
[2022-08-24] MEDS: THIAMINE HCL 100 MG TABLET (FP) PO SCH (22:12)
[2022-08-24] MEDS: FAMOTIDINE 20 MG TABLET PO SCH (22:12)
[2022-08-24] MEDS: MELATONIN 5 MG TABLETS PO SCH (22:12)
[2022-08-25] MEDS: chlordiazePOXIDE HCL 25 MG CAPSULE PO SCH ×2 (05:52→10:26)
[2022-08-25] MEDS: INSULIN SLIDING SCALE (NOVOLOG) 1 VIAL SQ SCH ×2 (06:09→10:36)
[2022-08-25] MEDS ORDERED: INSULIN (NOVOLOG) ASPART 100 UNITS/ML 10ML VIAL ONE ×2 (06:15→10:38)
[2022-08-25] MEDS ORDERED: metFORMIN HCL 500 MG TABLET (FP) PO SCH (07:00)
[2022-08-25 09:36] VITALS: BP 127/69; PULSE 77; RESP 17; TEMP 98
[2022-08-25] MEDS ORDERED: ASPIRIN 81 MG CHEWABLE TABLETS PO SCH (10:00)
[2022-08-25] MEDS: FAMOTIDINE 20 MG TABLET PO SCH (10:26)
[2022-08-25] MEDS: NICOTINE 7 MG/24 HOURS TOPICAL PATCH TD SCH (10:26)
[2022-08-25] MEDS: PRENATAL VITAMINS W/ FOLIC ACID TABLET (FP) PO SCH (10:29)
[2022-08-26] MEDS ORDERED: chlordiazePOXIDE HCL 10 MG CAPSULE PO PRN
[2022-08-26] MEDS ORDERED: chlordiazePOXIDE HCL 10 MG CAPSULE PO SCH (05:00)
[2022-08-27] MEDS ORDERED: chlordiazePOXIDE HCL 10 MG CAPSULE PO SCH (05:00)
[2022-08-28] MEDS ORDERED: chlordiazePOXIDE HCL 10 MG CAPSULE PO ONE (05:00)
== END 2022-08-25 11:30 | disposition home or self-care (01) | DRG 774 ==
LOC: YASAS 16:58 → Y6N 18:42
PROVIDERS: ADMIT Allergy & Immunology; ATTEND Surgery
PROC: HZ2ZZZZ Detoxification Services for Substance Abuse Treatment (ICD-10-PCS; principal; 2022-08-23)
DX: F10.230 Alcohol dependence with withdrawal, uncomplicated (principal); F14.20 Cocaine dependence, uncomplicated; F12.20 Cannabis dependence, uncomplicated; F17.210 Nicotine dependence, cigarettes, uncomplicated; F25.9 Schizoaffective disorder, unspecified; F31.81 Bipolar II disorder; J45.909 Unspecified asthma, uncomplicated; K21.9 Gastro-esophageal reflux disease without esophagitis; E11.9 Type 2 diabetes mellitus without complications; Z79.4 Long term (current) use of insulin
CPT/HCPCS: 36415; 80053; 82962; 85027; 86593; 86780; 87811; C9803-CS; U0003; U0005

== ENCOUNTER 2022-09-06 10:45 | Inpatient (IN) | payer OTHER ==
[2022-09-06 11:08] VITALS: BMI 23.3
[2022-09-06] MEDS ORDERED: ALBUTEROL SO4 HFA INHALER IH PRN (11:36)
[2022-09-06] MEDS ORDERED: LOPERAMIDE HCL 2 MG CAPSULE PO PRN (11:38)
[2022-09-06] MEDS ORDERED: ONDANSETRON *ODT* 4 MG TABLET SL PRN (11:38)
[2022-09-06] MEDS ORDERED: BENZONATATE 200 MG CAPSULE PO PRN (11:38)
[2022-09-06] MEDS ORDERED: NICOTINE 10 MG CARTRIDGE (INHALER) IH PRN (11:38)
[2022-09-06] MEDS ORDERED: hydrOXYzine PAMOATE 25 MG CAPSULE (FP) PO PRN (11:38)
[2022-09-06] MEDS ORDERED: IBUPROFEN 600 MG TABLET (FP) PO PRN (11:38)
[2022-09-06] MEDS ORDERED: MAG HYDROX/AL HYDROX/SIMETH 30 ML UNIT-DOSE CUP PO PRN (11:38)
[2022-09-06] MEDS ORDERED: MAGNESIUM HYDROX 2400MG/30ML ORAL SUSPENSION 30 ML CUP PO PRN (11:38)
[2022-09-06] MEDS ORDERED: P-EPHED 60MG/TRIPROLIDI 2.5MG TABLET PO PRN (11:38)
[2022-09-06] MEDS ORDERED: IBUPROFEN 400 MG TABLET (FP) PO PRN (11:38)
[2022-09-06] MEDS ORDERED: NICOTINE POLACRILEX 2 MG GUM BUC PRN (11:38)
[2022-09-06] MEDS ORDERED: BISMUTH SUBSALICYLATE 262 MG/15 ML BTL PO PRN (11:38)
[2022-09-06] MEDS ORDERED: DICYCLOMINE HCL 10 MG CAPSULE PO PRN (11:38)
[2022-09-06] MEDS ORDERED: BENZOCAINE/MENTHOL (CHLORASEPTIC ) LOZENGE MM PRN (11:38)
[2022-09-06] MEDS ORDERED: guaiFENesin 600 MG TABLET.ER (FP) PO PRN (11:38)
[2022-09-06] MEDS ORDERED: POLYETHYLENE GLYCOL (HEALTHYLAX) 3350 17 GM PACKET PO PRN (11:38)
[2022-09-06] MEDS: metFORMIN HCL 500 MG TABLET (FP) PO SCH (16:58)
[2022-09-06] MEDS: INSULIN SLIDING SCALE (NOVOLOG) 1 VIAL SQ SCH ×2 (16:59→22:01)
[2022-09-06] MEDS: INSULIN (LEVEMIR) 100 UNITS/ML UNITS SQ SCH (22:03)
[2022-09-06] MEDS: FAMOTIDINE 20 MG TABLET PO SCH (22:05)
[2022-09-06] MEDS: MELATONIN 5 MG TABLETS PO PRN (22:05)
[2022-09-06] MEDS: THIAMINE HCL 100 MG TABLET (FP) PO SCH (22:06)
[2022-09-06] MEDS: DIVALPROEX SODIUM 500 MG TABLET E.C. PO SCH (22:06)
[2022-09-07] MEDS: metFORMIN HCL 500 MG TABLET (FP) PO SCH ×2 (07:12→17:21)
[2022-09-07] MEDS: INSULIN SLIDING SCALE (NOVOLOG) 1 VIAL SQ SCH ×4 (07:12→21:46)
[2022-09-07] MEDS ORDERED: chlordiazePOXIDE HCL 25 MG CAPSULE PO PRN (09:51)
[2022-09-07] MEDS: PRENATAL VITAMINS W/ FOLIC ACID TABLET (FP) PO SCH (10:28)
[2022-09-07] MEDS: FAMOTIDINE 20 MG TABLET PO SCH ×2 (10:28→21:40)
[2022-09-07] MEDS: chlordiazePOXIDE HCL 25 MG CAPSULE PO SCH ×3 (10:30→22:52)
[2022-09-07] MEDS: DIVALPROEX SODIUM 500 MG TABLET E.C. PO SCH ×2 (10:40→21:41)
[2022-09-07] MEDS: ASPIRIN 81 MG CHEWABLE TABLETS PO SCH (10:40)
[2022-09-07 15:24] LABS: MEAN PLT VOLUME 11.3 fl (7.5-11.1)
[2022-09-07 15:25] LABS: CALCIUM 9.3 mg/dL (8.5-10.1)
[2022-09-07 15:26] LABS: ALBUMIN 3.5 g/dl (3.4-5.0); BLOOD UREA NITROGEN 12.8 mg/dL (7-18)
[2022-09-07 15:31] LABS: BILIRUBIN,TOTAL 0.6 mg/dL (0.2-1); TOT PROT 6.7 g/dl (6.4-8.2)
[2022-09-07 15:42] LABS: HEMOGLOBIN 14.2 GM/dL (11.7-16.9); MCH 30.7 pg (25.7-33.7); MCHC 33.1 g/dl (32.0-35.9); MEAN CELL VOLUME 92.7 fl (80-96); PLATELET COUNT 170 10^3/uL (134-434); RBC 4.63 M/mm3 (4.00-5.60); WHITE BLOOD COUNT 7.3 K/mm3 (4.0-10.0)
[2022-09-07] MEDS: THIAMINE HCL 100 MG TABLET (FP) PO SCH (21:40)
[2022-09-07] MEDS: MELATONIN 5 MG TABLETS PO PRN (21:40)
[2022-09-07] MEDS: INSULIN (LEVEMIR) 100 UNITS/ML UNITS SQ SCH (21:43)
[2022-09-08] MEDS: chlordiazePOXIDE HCL 25 MG CAPSULE PO SCH ×4 (06:02→23:10)
[2022-09-08] MEDS: metFORMIN HCL 500 MG TABLET (FP) PO SCH ×2 (06:03→17:06)
[2022-09-08] MEDS: INSULIN SLIDING SCALE (NOVOLOG) 1 VIAL SQ SCH ×4 (06:19→21:15)
[2022-09-08] MEDS: DIVALPROEX SODIUM 500 MG TABLET E.C. PO SCH ×2 (10:45→21:11)
[2022-09-08] MEDS: ASPIRIN 81 MG CHEWABLE TABLETS PO SCH (10:45)
[2022-09-08] MEDS: PRENATAL VITAMINS W/ FOLIC ACID TABLET (FP) PO SCH (10:45)
[2022-09-08] MEDS: FAMOTIDINE 20 MG TABLET PO SCH ×2 (10:46→21:11)
[2022-09-08] MEDS: THIAMINE HCL 100 MG TABLET (FP) PO SCH (21:11)
[2022-09-08] MEDS: INSULIN (LEVEMIR) 100 UNITS/ML UNITS SQ SCH (21:17)
[2022-09-09] MEDS ORDERED: chlordiazePOXIDE HCL 25 MG CAPSULE PO SCH (05:00)
[2022-09-09] MEDS: metFORMIN HCL 500 MG TABLET (FP) PO SCH (06:38)
[2022-09-09] MEDS: INSULIN SLIDING SCALE (NOVOLOG) 1 VIAL SQ SCH (06:38)
[2022-09-09] MEDS: ASPIRIN 81 MG CHEWABLE TABLETS PO SCH (09:15)
[2022-09-09] MEDS: FAMOTIDINE 20 MG TABLET PO SCH (09:15)
[2022-09-09] MEDS: DIVALPROEX SODIUM 500 MG TABLET E.C. PO SCH (09:15)
[2022-09-09] MEDS: PRENATAL VITAMINS W/ FOLIC ACID TABLET (FP) PO SCH (09:15)
[2022-09-09 09:20] VITALS: BP 111/70; PULSE 103; RESP 16; TEMP 98.2
[2022-09-10] MEDS ORDERED: chlordiazePOXIDE HCL 10 MG CAPSULE PO PRN
[2022-09-10] MEDS ORDERED: chlordiazePOXIDE HCL 10 MG CAPSULE PO SCH (05:00)
[2022-09-11] MEDS ORDERED: chlordiazePOXIDE HCL 10 MG CAPSULE PO SCH (05:00)
[2022-09-12] MEDS ORDERED: chlordiazePOXIDE HCL 10 MG CAPSULE PO ONE (05:00)
== END 2022-09-09 09:21 | disposition left against medical advice (07) | DRG 770 ==
LOC: YASAS 10:45 → Y3N 11:48
PROVIDERS: ADMIT Allergy & Immunology; ATTEND Surgery
PROC: HZ2ZZZZ Detoxification Services for Substance Abuse Treatment (ICD-10-PCS; principal; 2022-09-06)
DX: F10.230 Alcohol dependence with withdrawal, uncomplicated (principal); F14.20 Cocaine dependence, uncomplicated; F17.210 Nicotine dependence, cigarettes, uncomplicated; F25.0 Schizoaffective disorder, bipolar type; F31.81 Bipolar II disorder; F41.9 Anxiety disorder, unspecified; J45.909 Unspecified asthma, uncomplicated; K21.9 Gastro-esophageal reflux disease without esophagitis; E11.65 Type 2 diabetes mellitus with hyperglycemia; Z79.4 Long term (current) use of insulin; Z86.69 Personal history of other diseases of the nervous system and sense organs; Z86.19 Personal history of other infectious and parasitic diseases; Z59.00 Homelessness unspecified; Z56.0 Unemployment, unspecified
CPT/HCPCS: 36415; 80053; 82962; 85027; 87811; C9803-CS; Q0162; U0003; U0005

== ENCOUNTER 2022-09-12 12:41 | Inpatient (IN) | payer OTHER ==
[2022-09-12 14:38] VITALS: BMI 23.3
[2022-09-12] MEDS ORDERED: METHOCARBAMOL 500 MG TABLET PO PRN (19:21)
[2022-09-12] MEDS ORDERED: BENZONATATE 200 MG CAPSULE PO PRN (19:21)
[2022-09-12] MEDS ORDERED: LOPERAMIDE HCL 2 MG CAPSULE PO PRN (19:21)
[2022-09-12] MEDS ORDERED: NALOXONE HCL (KLOXXADO) 8 MG SPRAY NS PRN (19:21)
[2022-09-12] MEDS ORDERED: BISMUTH SUBSALICYLATE 524 MG/30 ML PO PRN (19:21)
[2022-09-12] MEDS ORDERED: POLYETHYLENE GLYCOL (HEALTHYLAX) 3350 17 GM PACKET PO PRN (19:21)
[2022-09-12] MEDS ORDERED: NALOXONE HCL 0.4 MG/ML VIAL IM PRN (19:21)
[2022-09-12] MEDS ORDERED: guaiFENesin 600 MG TABLET.ER (FP) PO PRN (19:21)
[2022-09-12] MEDS ORDERED: IBUPROFEN 600 MG TABLET (FP) PO PRN (19:21)
[2022-09-12] MEDS ORDERED: MAGNESIUM HYDROX 2400MG/30ML ORAL SUSPENSION 30 ML CUP PO PRN (19:21)
[2022-09-12] MEDS ORDERED: DICYCLOMINE HCL 10 MG CAPSULE PO PRN (19:21)
[2022-09-12] MEDS ORDERED: BENZOCAINE/MENTHOL (CHLORASEPTIC ) LOZENGE MM PRN (19:21)
[2022-09-12] MEDS ORDERED: IBUPROFEN 400 MG TABLET (FP) PO PRN (19:21)
[2022-09-12] MEDS ORDERED: chlordiazePOXIDE HCL 25 MG CAPSULE PO PRN (19:21)
[2022-09-12] MEDS ORDERED: NICOTINE 10 MG CARTRIDGE (INHALER) IH PRN (19:21)
[2022-09-12] MEDS ORDERED: MAG HYDROX/AL HYDROX/SIMETH 30 ML UNIT-DOSE CUP PO PRN (19:21)
[2022-09-12] MEDS ORDERED: ONDANSETRON *ODT* 4 MG TABLET SL PRN (19:21)
[2022-09-12] MEDS ORDERED: ALBUTEROL SO4 HFA INHALER IH PRN (19:25)
[2022-09-12] MEDS ORDERED: INSULIN SLIDING SCALE (NOVOLOG) 1 VIAL SQ SCH (22:00)
[2022-09-12] MEDS: INSULIN (LEVEMIR) 100 UNITS/ML UNITS SQ SCH (22:37)
[2022-09-12] MEDS: INSULIN SLIDING SCALE (NOVOLOG) 1 VIAL SQ SCH (22:38)
[2022-09-12] MEDS: chlordiazePOXIDE HCL 25 MG CAPSULE PO SCH (22:40)
[2022-09-12] MEDS: THIAMINE HCL 100 MG TABLET (FP) PO SCH (22:40)
[2022-09-12] MEDS: MELATONIN 5 MG TABLETS PO SCH (22:40)
[2022-09-12] MEDS: FAMOTIDINE 20 MG TABLET PO SCH (22:40)
[2022-09-13] MEDS: chlordiazePOXIDE HCL 25 MG CAPSULE PO SCH ×4 (05:20→22:44)
[2022-09-13] MEDS: INSULIN SLIDING SCALE (NOVOLOG) 1 VIAL SQ SCH ×2 (06:17→12:21)
[2022-09-13] MEDS: metFORMIN HCL 500 MG TABLET (FP) PO SCH ×2 (06:17→17:23)
[2022-09-13] MEDS ORDERED: INSULIN SLIDING SCALE (NOVOLOG) 1 VIAL SQ ONE ×2 (06:23→11:22)
[2022-09-13] MEDS ORDERED: INSULIN (LEVEMIR) 100 UNITS/ML UNITS SQ SCH (10:00)
[2022-09-13] MEDS: ASPIRIN 81 MG CHEWABLE TABLETS PO SCH (10:24)
[2022-09-13] MEDS: PRENATAL VITAMINS W/ FOLIC ACID TABLET (FP) PO SCH (10:24)
[2022-09-13] MEDS: FAMOTIDINE 20 MG TABLET PO SCH ×2 (10:24→22:43)
[2022-09-13] MEDS: INSULIN (NOVOLOG) ASPART 100 UNITS/ML 10ML VIAL SQ SCH ×3 (11:22→22:46)
[2022-09-13 11:31] LABS: HEMATOCRIT 42.8 % (35.4-49); HEMOGLOBIN 14.7 GM/dL (11.7-16.9); MCH 31.3 pg (25.7-33.7); MCHC 34.4 g/dl (32.0-35.9); MEAN CELL VOLUME 90.8 fl (80-96); MEAN PLT VOLUME 12.1 fl (7.5-11.1); PLATELET COUNT 163 10^3/uL (134-434); RBC 4.72 M/mm3 (4.00-5.60); RDW 13.7 % (11.9-15.9); WHITE BLOOD COUNT 5.6 K/mm3 (4.0-10.0)
[2022-09-13 11:34] LABS: CHLORIDE 107 mmol/L (98-107); SODIUM 142 mmol/L (136-145)
[2022-09-13 11:44] LABS: ALBUMIN 3.2 g/dl (3.4-5.0); ANION GAP 4 MMOL/L (8-16); BLOOD UREA NITROGEN 13.4 mg/dL (7-18); CO2 31 mmol/L (21-32)
[2022-09-13 11:46] LABS: CALCIUM 8.8 mg/dL (8.5-10.1)
[2022-09-13 11:50] LABS: CREATININE 0.9 mg/dL (0.55-1.3); SGOT/AST 14 U/L (15-37); SGPT/ALT 25 U/L (13-61)
[2022-09-13 11:52] LABS: BILIRUBIN,TOTAL 0.5 mg/dL (0.2-1); TOT PROT 6.4 g/dl (6.4-8.2)
[2022-09-13 11:53] LABS: ALK PHOS 48 U/L (45-117)
[2022-09-13 11:54] LABS: GLUCOSE,RANDOM 36 mg/dL (74-106)
[2022-09-13] MEDS: INSULIN (LEVEMIR) 100 UNITS/ML UNITS SQ SCH (22:41)
[2022-09-13] MEDS: THIAMINE HCL 100 MG TABLET (FP) PO SCH (22:43)
[2022-09-13] MEDS: MELATONIN 5 MG TABLETS PO SCH (22:43)
[2022-09-14] MEDS: chlordiazePOXIDE HCL 25 MG CAPSULE PO SCH ×4 (05:32→22:13)
[2022-09-14] MEDS ORDERED: INSULIN SLIDING SCALE (NOVOLOG) 1 VIAL SQ ONE (05:33)
[2022-09-14] MEDS: INSULIN (NOVOLOG) ASPART 100 UNITS/ML 10ML VIAL SQ SCH ×4 (06:31→22:29)
[2022-09-14] MEDS: metFORMIN HCL 500 MG TABLET (FP) PO SCH ×2 (06:31→17:04)
[2022-09-14] MEDS: PRENATAL VITAMINS W/ FOLIC ACID TABLET (FP) PO SCH (10:20)
[2022-09-14] MEDS: ASPIRIN 81 MG CHEWABLE TABLETS PO SCH (10:20)
[2022-09-14] MEDS: FAMOTIDINE 20 MG TABLET PO SCH ×2 (10:20→22:14)
[2022-09-14] MEDS: hydrOXYzine PAMOATE 25 MG CAPSULE (FP) PO PRN (18:39)
[2022-09-14] MEDS: MELATONIN 5 MG TABLETS PO SCH (22:13)
[2022-09-14] MEDS: THIAMINE HCL 100 MG TABLET (FP) PO SCH (22:14)
[2022-09-14] MEDS: INSULIN (LEVEMIR) 100 UNITS/ML UNITS SQ SCH (22:29)
[2022-09-15] MEDS ORDERED: chlordiazePOXIDE HCL 10 MG CAPSULE PO PRN
[2022-09-15] MEDS: metFORMIN HCL 500 MG TABLET (FP) PO SCH ×2 (06:01→17:29)
[2022-09-15] MEDS: chlordiazePOXIDE HCL 10 MG CAPSULE PO SCH ×4 (06:01→22:09)
[2022-09-15] MEDS ORDERED: INSULIN SLIDING SCALE (NOVOLOG) 1 VIAL SQ ONE ×5 (06:05→17:28)
[2022-09-15] MEDS: INSULIN (NOVOLOG) ASPART 100 UNITS/ML 10ML VIAL SQ SCH ×4 (06:07→21:59)
[2022-09-15] MEDS: FAMOTIDINE 20 MG TABLET PO SCH ×2 (10:46→22:10)
[2022-09-15] MEDS: PRENATAL VITAMINS W/ FOLIC ACID TABLET (FP) PO SCH (10:46)
[2022-09-15] MEDS: ASPIRIN 81 MG CHEWABLE TABLETS PO SCH (10:46)
[2022-09-15] MEDS: INSULIN (LEVEMIR) 100 UNITS/ML UNITS SQ SCH (21:58)
[2022-09-15] MEDS ORDERED: QUEtiapine FUMARATE 100 MG TABLET (FP) PO SCH (22:00)
[2022-09-15] MEDS: DIVALPROEX SODIUM 500 MG TABLET E.C. PO SCH (22:10)
[2022-09-15] MEDS: THIAMINE HCL 100 MG TABLET (FP) PO SCH (22:10)
[2022-09-15] MEDS: MELATONIN 5 MG TABLETS PO SCH (22:10)
[2022-09-15] MEDS: hydrOXYzine PAMOATE 25 MG CAPSULE (FP) PO PRN (22:11)
[2022-09-16] MEDS: chlordiazePOXIDE HCL 10 MG CAPSULE PO SCH ×2 (05:52→17:54)
[2022-09-16] MEDS: metFORMIN HCL 500 MG TABLET (FP) PO SCH ×2 (06:29→16:57)
[2022-09-16] MEDS ORDERED: INSULIN SLIDING SCALE (NOVOLOG) 1 VIAL SQ ONE ×3 (06:44→22:56)
[2022-09-16] MEDS: INSULIN (NOVOLOG) ASPART 100 UNITS/ML 10ML VIAL SQ SCH ×4 (06:48→21:41)
[2022-09-16] MEDS ORDERED: QUEtiapine FUMARATE 50 MG TABLET PO SCH (10:00)
[2022-09-16] MEDS: DIVALPROEX SODIUM 500 MG TABLET E.C. PO SCH ×2 (10:18→22:34)
[2022-09-16] MEDS: FAMOTIDINE 20 MG TABLET PO SCH ×2 (10:18→22:35)
[2022-09-16] MEDS: PRENATAL VITAMINS W/ FOLIC ACID TABLET (FP) PO SCH (10:18)
[2022-09-16] MEDS: ASPIRIN 81 MG CHEWABLE TABLETS PO SCH (10:18)
[2022-09-16 17:16] VITALS: TEMP 97.8
[2022-09-16] MEDS ORDERED: INSULIN (LEVEMIR) 100 UNITS/ML UNITS SQ SCH (22:00)
[2022-09-16 22:03] VITALS: BP 111/71; PULSE 86; RESP 18
[2022-09-16] MEDS: MELATONIN 5 MG TABLETS PO SCH (22:35)
[2022-09-16] MEDS: THIAMINE HCL 100 MG TABLET (FP) PO SCH (22:35)
[2022-09-17] MEDS ORDERED: chlordiazePOXIDE HCL 10 MG CAPSULE PO ONE (05:00)
== END 2022-09-17 03:30 | disposition left against medical advice (07) | DRG 770 ==
LOC: YASAS 12:41 → Y3N 20:38
PROVIDERS: ADMIT Allergy & Immunology; ATTEND Surgery
PROC: HZ2ZZZZ Detoxification Services for Substance Abuse Treatment (ICD-10-PCS; principal; 2022-09-12)
DX: F10.230 Alcohol dependence with withdrawal, uncomplicated (principal); F14.20 Cocaine dependence, uncomplicated; F13.20 Sedative, hypnotic or anxiolytic dependence, uncomplicated; F16.20 Hallucinogen dependence, uncomplicated; F12.20 Cannabis dependence, uncomplicated; F17.210 Nicotine dependence, cigarettes, uncomplicated; F25.0 Schizoaffective disorder, bipolar type; F43.10 Post-traumatic stress disorder, unspecified; E10.9 Type 1 diabetes mellitus without complications; Z79.4 Long term (current) use of insulin; G47.00 Insomnia, unspecified; K21.9 Gastro-esophageal reflux disease without esophagitis; Z86.19 Personal history of other infectious and parasitic diseases; Z88.6 Allergy status to analgesic agent; Z56.0 Unemployment, unspecified; Z59.00 Homelessness unspecified
CPT/HCPCS: 36415; 80053; 80164; 82962; 85027; 86593; 86780; C9803-CS; U0003; U0005

== ENCOUNTER 2022-09-27 22:55 | Inpatient (IN) | payer OTHER ==
[2022-09-27] MEDS ORDERED: ALBUTEROL SO4 HFA INHALER IH PRN (23:21)
[2022-09-27] MEDS ORDERED: MAG HYDROX/AL HYDROX/SIMETH 30 ML UNIT-DOSE CUP PO PRN (23:22)
[2022-09-27] MEDS ORDERED: NICOTINE POLACRILEX 2 MG GUM BUC PRN (23:22)
[2022-09-27] MEDS ORDERED: IBUPROFEN 400 MG TABLET (FP) PO PRN (23:22)
[2022-09-27] MEDS ORDERED: BENZOCAINE/MENTHOL (CHLORASEPTIC ) LOZENGE MM PRN (23:22)
[2022-09-27] MEDS ORDERED: guaiFENesin 600 MG TABLET.ER (FP) PO PRN (23:22)
[2022-09-27] MEDS ORDERED: ONDANSETRON *ODT* 4 MG TABLET SL PRN (23:22)
[2022-09-27] MEDS ORDERED: NALOXONE HCL 0.4 MG/ML VIAL IM PRN (23:22)
[2022-09-27] MEDS ORDERED: MAGNESIUM HYDROX 2400MG/30ML ORAL SUSPENSION 30 ML CUP PO PRN (23:22)
[2022-09-27] MEDS ORDERED: IBUPROFEN 600 MG TABLET (FP) PO PRN (23:22)
[2022-09-27] MEDS ORDERED: BISMUTH SUBSALICYLATE 524 MG/30 ML PO PRN (23:22)
[2022-09-27] MEDS ORDERED: POLYETHYLENE GLYCOL (HEALTHYLAX) 3350 17 GM PACKET PO PRN (23:22)
[2022-09-27] MEDS ORDERED: LOPERAMIDE HCL 2 MG CAPSULE PO PRN (23:22)
[2022-09-27] MEDS ORDERED: NALOXONE HCL (KLOXXADO) 8 MG SPRAY NS PRN (23:22)
[2022-09-27] MEDS ORDERED: BENZONATATE 200 MG CAPSULE PO PRN (23:22)
[2022-09-27] MEDS ORDERED: METHOCARBAMOL 500 MG TABLET PO PRN (23:22)
[2022-09-27] MEDS ORDERED: DICYCLOMINE HCL 10 MG CAPSULE PO PRN (23:22)
[2022-09-27] MEDS ORDERED: hydrOXYzine PAMOATE 25 MG CAPSULE (FP) PO PRN (23:22)
[2022-09-27 23:31] VITALS: BMI 25.0
[2022-09-28] MEDS ORDERED: INSULIN SLIDING SCALE (NOVOLOG) 1 VIAL SQ ONE ×2 (06:40→12:11)
[2022-09-28] MEDS ORDERED: INSULIN SLIDING SCALE (NOVOLOG) 1 VIAL SQ SCH (07:00)
[2022-09-28] MEDS ORDERED: INSULIN (LEVEMIR) 100 UNITS/ML UNITS SQ SCH (07:00)
[2022-09-28] MEDS ORDERED: metFORMIN HCL 500 MG TABLET (FP) PO SCH (07:00)
[2022-09-28] MEDS: INSULIN SLIDING SCALE (NOVOLOG) 1 VIAL SQ SCH ×2 (07:34→12:06)
[2022-09-28 08:55] VITALS: RESP 18
[2022-09-28 09:20] LABS: PH,URINE 6.5 (5.0-8.0); URINE APPEARANCE CLEAR; URINE BILIRUBIN NEGATIVE (NEGATIVE); URINE COLOR YELLOW; URINE GLUCOSE (UA) 3+ (NEGATIVE); URINE KETONE TRACE (NEGATIVE); URINE LEUK ESTERASE NEGATIVE (NEGATIVE); URINE NITRITE NEGATIVE (NEGATIVE); URINE PROTEIN NEGATIVE (NEGATIVE); URINE UROBILINOGEN 0.2 mg/dL (0.2-1.0)
[2022-09-28] MEDS ORDERED: ASPIRIN 81 MG CHEWABLE TABLETS PO SCH (10:00)
[2022-09-28] MEDS ORDERED: NICOTINE 14 MG/24 HOURS TOPICAL PATCH TD SCH (10:00)
[2022-09-28] MEDS ORDERED: PRENATAL VITAMINS W/ FOLIC ACID TABLET (FP) PO SCH (10:00)
[2022-09-28 10:45] LABS: HEMATOCRIT 45.1 % (35.4-49); HEMOGLOBIN 15.6 GM/dL (11.7-16.9); MCH 31.2 pg (25.7-33.7); MCHC 34.7 g/dl (32.0-35.9); MEAN CELL VOLUME 90.1 fl (80-96); MEAN PLT VOLUME 12.2 fl (7.5-11.1); PLATELET COUNT 185 10^3/uL (134-434); RDW 13.5 % (11.9-15.9); WHITE BLOOD COUNT 8.8 K/mm3 (4.0-10.0)
[2022-09-28 10:59] LABS: CALCIUM 9.9 mg/dL (8.5-10.1)
[2022-09-28 11:01] LABS: ALBUMIN 3.9 g/dl (3.4-5.0); BLOOD UREA NITROGEN 15.5 mg/dL (7-18)
[2022-09-28 11:04] LABS: BILIRUBIN,TOTAL 0.8 mg/dL (0.2-1); TOT PROT 7.8 g/dl (6.4-8.2)
[2022-09-28 12:42] VITALS: BP 124/74; PULSE 84; TEMP 97.7
[2022-09-28] MEDS ORDERED: BENZTROPINE MESYLATE 1 MG TABLET PO SCH (22:00)
[2022-09-28] MEDS ORDERED: DIVALPROEX SODIUM 500 MG TABLET E.C. PO SCH (22:00)
[2022-09-28] MEDS ORDERED: THIAMINE HCL 100 MG TABLET (FP) PO SCH (22:00)
[2022-09-28] MEDS ORDERED: MELATONIN 5 MG TABLETS PO SCH (22:00)
== END 2022-09-28 15:26 | disposition other institution (70) | DRG 774 ==
LOC: YASAS 22:55 → Y3N 09-28 01:09
PROVIDERS: ADMIT Allergy & Immunology; ATTEND Surgery
PROC: HZ2ZZZZ Detoxification Services for Substance Abuse Treatment (ICD-10-PCS; principal; 2022-09-28)
DX: F10.230 Alcohol dependence with withdrawal, uncomplicated (principal); F14.20 Cocaine dependence, uncomplicated; F12.20 Cannabis dependence, uncomplicated; F17.210 Nicotine dependence, cigarettes, uncomplicated; F25.0 Schizoaffective disorder, bipolar type; G47.00 Insomnia, unspecified; E11.9 Type 2 diabetes mellitus without complications; Z79.4 Long term (current) use of insulin; Z62.810 Personal history of physical and sexual abuse in childhood; R76.8 Other specified abnormal immunological findings in serum; Z88.8 Allergy status to other drugs, medicaments and biological substances; Z91.013 Allergy to seafood; Z91.018 Allergy to other foods; Z56.0 Unemployment, unspecified; Z59.00 Homelessness unspecified
CPT/HCPCS: 36415; 80053; 81003; 82962; 85027; 86593; 86780; 87811; C9803-CS; U0003; U0005

== ENCOUNTER 2022-09-28 15:29 | Inpatient (IN) | payer OTHER ==
[2022-09-28] MEDS ORDERED: NALOXONE HCL 0.4 MG/ML VIAL IVPUSH PRN (16:06)
[2022-09-28] MEDS ORDERED: NICOTINE POLACRILEX 4 MG GUM BUC PRN (16:06)
[2022-09-28] MEDS ORDERED: COLLOIDAL OATMEAL 1 BAR EACH TP PRN (16:06)
[2022-09-28] MEDS ORDERED: guaiFENesin 600 MG TABLET.ER (FP) PO PRN (16:06)
[2022-09-28] MEDS ORDERED: IBUPROFEN 400 MG TABLET (FP) PO PRN (16:06)
[2022-09-28] MEDS ORDERED: LOPERAMIDE HCL 2 MG CAPSULE PO PRN (16:06)
[2022-09-28] MEDS ORDERED: AMMONIUM LACTATE 12% LOTION 225 GM BOTTLE TP PRN (16:06)
[2022-09-28] MEDS ORDERED: NALOXONE HCL (KLOXXADO) 8 MG SPRAY NS PRN (16:06)
[2022-09-28] MEDS ORDERED: POLYETHYLENE GLYCOL (HEALTHYLAX) 3350 17 GM PACKET PO PRN (16:06)
[2022-09-28] MEDS ORDERED: MAG HYDROX/AL HYDROX/SIMETH 30 ML UNIT-DOSE CUP PO PRN (16:06)
[2022-09-28] MEDS ORDERED: MAGNESIUM HYDROX 2400MG/30ML ORAL SUSPENSION 30 ML CUP PO PRN (16:06)
[2022-09-28] MEDS ORDERED: BACLOFEN 10 MG TABLET (FP) PO PRN (16:06)
[2022-09-28] MEDS ORDERED: NICOTINE 10 MG CARTRIDGE (INHALER) IH PRN (16:06)
[2022-09-28] MEDS ORDERED: BENZOCAINE/MENTHOL (CHLORASEPTIC ) LOZENGE MM PRN (16:06)
[2022-09-28] MEDS ORDERED: IBUPROFEN 600 MG TABLET (FP) PO PRN (16:06)
[2022-09-28] MEDS ORDERED: ACETAMINOPHEN 325 MG TABLET (FP) PO PRN (16:06)
[2022-09-28] MEDS ORDERED: NICOTINE 21 MG/24 HOURS TOPICAL PATCH TD PRN (16:06)
[2022-09-28] MEDS ORDERED: BENZONATATE 200 MG CAPSULE PO PRN (16:06)
[2022-09-28] MEDS ORDERED: ALBUTEROL SO4 HFA INHALER IH PRN (16:13)
[2022-09-28] MEDS ORDERED: DICYCLOMINE HCL 10 MG CAPSULE PO PRN (16:13)
[2022-09-28] MEDS ORDERED: INSULIN SLIDING SCALE (NOVOLOG) 1 VIAL SQ SCH (16:30)
[2022-09-28] MEDS: metFORMIN HCL 500 MG TABLET (FP) PO SCH (16:59)
[2022-09-28] MEDS: PRENATAL VITAMINS W/ FOLIC ACID TABLET (FP) PO SCH (16:59)
[2022-09-28] MEDS: INSULIN SLIDING SCALE (NOVOLOG) 1 VIAL SQ SCH ×2 (17:00→21:38)
[2022-09-28] MEDS: THIAMINE HCL 100 MG TABLET (FP) PO SCH (21:35)
[2022-09-28] MEDS: DIVALPROEX SODIUM 500 MG TABLET E.C. PO SCH (21:35)
[2022-09-28] MEDS: BENZTROPINE MESYLATE 1 MG TABLET PO SCH (21:35)
[2022-09-28] MEDS: FAMOTIDINE 20 MG TABLET PO SCH (21:36)
[2022-09-28] MEDS: INSULIN (LEVEMIR) 100 UNITS/ML UNITS SQ SCH (21:37)
[2022-09-28] MEDS: MELATONIN 5 MG TABLETS PO SCH (21:46)
[2022-09-29] MEDS: metFORMIN HCL 500 MG TABLET (FP) PO SCH ×2 (06:00→16:44)
[2022-09-29] MEDS: INSULIN SLIDING SCALE (NOVOLOG) 1 VIAL SQ SCH ×4 (07:52→21:03)
[2022-09-29] MEDS: ASPIRIN 81 MG CHEWABLE TABLETS PO SCH (11:08)
[2022-09-29] MEDS: BENZTROPINE MESYLATE 1 MG TABLET PO SCH ×2 (11:09→21:05)
[2022-09-29] MEDS: PRENATAL VITAMINS W/ FOLIC ACID TABLET (FP) PO SCH (11:09)
[2022-09-29] MEDS: FAMOTIDINE 20 MG TABLET PO SCH ×2 (11:09→21:04)
[2022-09-29] MEDS: DIVALPROEX SODIUM 500 MG TABLET E.C. PO SCH ×2 (11:09→21:04)
[2022-09-29] MEDS: hydrOXYzine PAMOATE 25 MG CAPSULE (FP) PO PRN (16:44)
[2022-09-29] MEDS: INSULIN (LEVEMIR) 100 UNITS/ML UNITS SQ SCH (21:04)
[2022-09-29] MEDS: THIAMINE HCL 100 MG TABLET (FP) PO SCH (21:06)
[2022-09-29] MEDS: MELATONIN 5 MG TABLETS PO SCH (21:06)
[2022-09-30] MEDS: metFORMIN HCL 500 MG TABLET (FP) PO SCH ×2 (06:48→16:12)
[2022-09-30] MEDS: INSULIN SLIDING SCALE (NOVOLOG) 1 VIAL SQ SCH ×3 (06:48→16:12)
[2022-09-30] MEDS: PRENATAL VITAMINS W/ FOLIC ACID TABLET (FP) PO SCH (09:53)
[2022-09-30] MEDS: DIVALPROEX SODIUM 500 MG TABLET E.C. PO SCH (09:54)
[2022-09-30] MEDS: BENZTROPINE MESYLATE 1 MG TABLET PO SCH (09:54)
[2022-09-30] MEDS: FAMOTIDINE 20 MG TABLET PO SCH (09:55)
[2022-09-30] MEDS: ASPIRIN 81 MG CHEWABLE TABLETS PO SCH (09:55)
[2022-09-30] MEDS: hydrOXYzine PAMOATE 25 MG CAPSULE (FP) PO PRN (09:56)
[2022-09-30 16:44] VITALS: BP 115/72; PULSE 91; RESP 20; TEMP 97.7
== END 2022-09-30 16:52 | disposition left against medical advice (07) | DRG 770 ==
LOC: YASAS 15:29 → Y3W 15:30
PROVIDERS: ADMIT Allergy & Immunology; ATTEND Psychiatry & Neurology Pain Medicine
PROC: HZ42ZZZ Group Counseling for Substance Abuse Treatment, Cognitive-Behavioral (ICD-10-PCS; principal; 2022-09-28)
DX: F10.20 Alcohol dependence, uncomplicated (principal); F14.20 Cocaine dependence, uncomplicated; F17.210 Nicotine dependence, cigarettes, uncomplicated; F31.81 Bipolar II disorder; F25.9 Schizoaffective disorder, unspecified; J45.909 Unspecified asthma, uncomplicated; K21.9 Gastro-esophageal reflux disease without esophagitis; E10.9 Type 1 diabetes mellitus without complications; Z79.4 Long term (current) use of insulin; Z86.19 Personal history of other infectious and parasitic diseases
CPT/HCPCS: 36415; 80164; 82962; 86803

== ENCOUNTER 2022-10-05 07:55 | Inpatient (IN) | payer OTHER ==
[2022-10-05 08:33] VITALS: BMI 24.1
[2022-10-05] MEDS ORDERED: NICOTINE POLACRILEX 2 MG GUM BUC PRN (09:24)
[2022-10-05] MEDS ORDERED: NALOXONE HCL 0.4 MG/ML VIAL IM PRN (09:24)
[2022-10-05] MEDS ORDERED: BENZONATATE 200 MG CAPSULE PO PRN (09:24)
[2022-10-05] MEDS ORDERED: IBUPROFEN 400 MG TABLET (FP) PO PRN (09:24)
[2022-10-05] MEDS ORDERED: POLYETHYLENE GLYCOL (HEALTHYLAX) 3350 17 GM PACKET PO PRN (09:24)
[2022-10-05] MEDS ORDERED: LOPERAMIDE HCL 2 MG CAPSULE PO PRN (09:24)
[2022-10-05] MEDS ORDERED: BENZOCAINE/MENTHOL (CHLORASEPTIC ) LOZENGE MM PRN (09:24)
[2022-10-05] MEDS ORDERED: NALOXONE HCL (KLOXXADO) 8 MG SPRAY NS PRN (09:24)
[2022-10-05] MEDS ORDERED: hydrOXYzine PAMOATE 25 MG CAPSULE (FP) PO PRN (09:24)
[2022-10-05] MEDS ORDERED: MAG HYDROX/AL HYDROX/SIMETH 30 ML UNIT-DOSE CUP PO PRN (09:24)
[2022-10-05] MEDS ORDERED: AMMONIUM LACTATE 12% LOTION 225 GM BOTTLE TP PRN (09:24)
[2022-10-05] MEDS ORDERED: MAGNESIUM HYDROX 2400MG/30ML ORAL SUSPENSION 30 ML CUP PO PRN (09:24)
[2022-10-05] MEDS ORDERED: guaiFENesin 600 MG TABLET.ER (FP) PO PRN (09:24)
[2022-10-05] MEDS ORDERED: NICOTINE 10 MG CARTRIDGE (INHALER) IH PRN (09:24)
[2022-10-05] MEDS ORDERED: IBUPROFEN 600 MG TABLET (FP) PO PRN (09:24)
[2022-10-05] MEDS ORDERED: COLLOIDAL OATMEAL 1 BAR EACH TP PRN (09:24)
[2022-10-05] MEDS ORDERED: ALBUTEROL SO4 HFA INHALER IH PRN (09:28)
[2022-10-05] MEDS ORDERED: NICOTINE 21 MG/24 HOURS TOPICAL PATCH ONE (10:16)
[2022-10-05] MEDS ORDERED: PRENATAL VITAMINS W/ FOLIC ACID TABLET (FP) PO ONE (10:18)
[2022-10-05] MEDS ORDERED: ASPIRIN 81 MG CHEWABLE TABLETS ONE (10:18)
[2022-10-05] MEDS ORDERED: INSULIN (NOVOLOG) ASPART 100 UNITS/ML 10ML VIAL ONE ×3 (10:18→21:42)
[2022-10-05] MEDS: PRENATAL VITAMINS W/ FOLIC ACID TABLET (FP) PO SCH (10:24)
[2022-10-05] MEDS: NICOTINE 21 MG/24 HOURS TOPICAL PATCH TD SCH (10:24)
[2022-10-05] MEDS: ASPIRIN 81 MG CHEWABLE TABLETS PO SCH (10:24)
[2022-10-05] MEDS: INSULIN SLIDING SCALE (NOVOLOG) 1 VIAL SQ SCH ×3 (10:25→21:18)
[2022-10-05] MEDS: FAMOTIDINE 20 MG TABLET PO SCH ×2 (11:30→21:20)
[2022-10-05] MEDS: metFORMIN HCL 500 MG TABLET (FP) PO SCH (17:07)
[2022-10-05] MEDS ORDERED: INSULIN (LEVEMIR) 100 UNITS/ML UNITS SQ ONE ×2 (20:59→21:42)
[2022-10-05] MEDS ORDERED: INSULIN (LEVEMIR) 100 UNITS/ML UNITS SQ SCH (22:00)
[2022-10-05] MEDS ORDERED: THIAMINE HCL 100 MG TABLET (FP) PO SCH (22:00)
[2022-10-05] MEDS ORDERED: MELATONIN 5 MG TABLETS PO SCH (22:00)
[2022-10-06] MEDS: metFORMIN HCL 500 MG TABLET (FP) PO SCH (06:17)
[2022-10-06] MEDS: INSULIN SLIDING SCALE (NOVOLOG) 1 VIAL SQ SCH (06:17)
[2022-10-06 06:44] VITALS: BP 107/73; PULSE 65; RESP 18; TEMP 97.6
[2022-10-06] MEDS: PRENATAL VITAMINS W/ FOLIC ACID TABLET (FP) PO SCH (10:13)
[2022-10-06] MEDS: FAMOTIDINE 20 MG TABLET PO SCH (10:13)
[2022-10-06] MEDS: NICOTINE 21 MG/24 HOURS TOPICAL PATCH TD SCH (10:13)
[2022-10-06] MEDS: ASPIRIN 81 MG CHEWABLE TABLETS PO SCH (10:13)
[2022-10-06 11:01] LABS: HEMATOCRIT 40.9 % (35.4-49); HEMOGLOBIN 14.2 GM/dL (11.7-16.9); MCH 31.4 pg (25.7-33.7); MCHC 34.8 g/dl (32.0-35.9); MEAN CELL VOLUME 90.3 fl (80-96); MEAN PLT VOLUME 11.4 fl (7.5-11.1); PLATELET COUNT 176 10^3/uL (134-434); RBC 4.52 M/mm3 (4.00-5.60); RDW 13.1 % (11.9-15.9); WHITE BLOOD COUNT 5.5 K/mm3 (4.0-10.0)
[2022-10-06 11:29] LABS: PH,URINE 5.5 (5.0-8.0); URINE APPEARANCE CLEAR; URINE BILIRUBIN NEGATIVE (NEGATIVE); URINE COLOR YELLOW; URINE GLUCOSE (UA) 1+ (NEGATIVE); URINE KETONE TRACE (NEGATIVE); URINE LEUK ESTERASE NEGATIVE (NEGATIVE); URINE NITRITE NEGATIVE (NEGATIVE); URINE PROTEIN NEGATIVE (NEGATIVE); URINE UROBILINOGEN 0.2 mg/dL (0.2-1.0)
[2022-10-06 11:34] LABS: POTASSIUM 3.9 mmol/L (3.5-5.1)
[2022-10-06 11:36] LABS: CALCIUM 9.1 mg/dL (8.5-10.1)
[2022-10-06 11:37] LABS: ALBUMIN 3.5 g/dl (3.4-5.0)
[2022-10-06 11:40] LABS: CREATININE 1.1 mg/dL (0.55-1.3)
[2022-10-06 11:41] LABS: BILIRUBIN,TOTAL 1.1 mg/dL (0.2-1)
[2022-10-06 11:48] LABS: BLOOD UREA NITROGEN 16.4 mg/dL (7-18)
[2022-10-06 12:05] LABS: SYPHILIS W/ RPR CONF REACTIVE (NONREACTIVE)
== END 2022-10-06 10:46 | disposition left against medical advice (07) | DRG 770 ==
LOC: YASAS 07:55 → Y3E 10:59
PROVIDERS: ADMIT Allergy & Immunology; ATTEND Psychiatry & Neurology Pain Medicine
PROC: HZ42ZZZ Group Counseling for Substance Abuse Treatment, Cognitive-Behavioral (ICD-10-PCS; principal; 2022-10-05)
DX: F14.20 Cocaine dependence, uncomplicated (principal); F12.20 Cannabis dependence, uncomplicated; F17.210 Nicotine dependence, cigarettes, uncomplicated; F25.0 Schizoaffective disorder, bipolar type; F31.81 Bipolar II disorder; F19.280 Other psychoactive substance dependence with psychoactive substance-induced anxiety disorder; J45.909 Unspecified asthma, uncomplicated; K21.9 Gastro-esophageal reflux disease without esophagitis; E11.9 Type 2 diabetes mellitus without complications; Z79.4 Long term (current) use of insulin; Z88.6 Allergy status to analgesic agent; Z91.013 Allergy to seafood; Z91.018 Allergy to other foods
CPT/HCPCS: 36415; 80053; 81003; 82962; 85027; 86593; 86780; 86803; 87811; C9803-CS; U0003; U0005

== ENCOUNTER 2022-10-22 01:36 | Inpatient (IN) | payer OTHER ==
[2022-10-22 02:37] VITALS: BMI 25.7
[2022-10-22] MEDS ORDERED: ALBUTEROL SO4 HFA INHALER IH PRN (03:12)
[2022-10-22] MEDS ORDERED: MAGNESIUM HYDROX 2400MG/30ML ORAL SUSPENSION 30 ML CUP PO PRN (03:13)
[2022-10-22] MEDS ORDERED: BISMUTH SUBSALICYLATE 524 MG/30 ML PO PRN (03:13)
[2022-10-22] MEDS ORDERED: hydrOXYzine PAMOATE 25 MG CAPSULE (FP) PO PRN (03:13)
[2022-10-22] MEDS ORDERED: BENZONATATE 200 MG CAPSULE PO PRN (03:13)
[2022-10-22] MEDS ORDERED: guaiFENesin 600 MG TABLET.ER (FP) PO PRN (03:13)
[2022-10-22] MEDS ORDERED: IBUPROFEN 600 MG TABLET (FP) PO PRN (03:13)
[2022-10-22] MEDS ORDERED: IBUPROFEN 400 MG TABLET (FP) PO PRN (03:13)
[2022-10-22] MEDS ORDERED: BENZOCAINE/MENTHOL (CHLORASEPTIC ) LOZENGE MM PRN (03:13)
[2022-10-22] MEDS ORDERED: MAG HYDROX/AL HYDROX/SIMETH 30 ML UNIT-DOSE CUP PO PRN (03:13)
[2022-10-22] MEDS ORDERED: POLYETHYLENE GLYCOL (HEALTHYLAX) 3350 17 GM PACKET PO PRN (03:13)
[2022-10-22] MEDS ORDERED: METHOCARBAMOL 500 MG TABLET PO PRN (03:13)
[2022-10-22] MEDS ORDERED: ONDANSETRON *ODT* 4 MG TABLET SL PRN (03:13)
[2022-10-22] MEDS ORDERED: DICYCLOMINE HCL 10 MG CAPSULE PO PRN (03:13)
[2022-10-22] MEDS ORDERED: NALOXONE HCL 0.4 MG/ML VIAL IM PRN (03:13)
[2022-10-22] MEDS ORDERED: NALOXONE HCL (KLOXXADO) 8 MG SPRAY NS PRN (03:13)
[2022-10-22] MEDS ORDERED: LOPERAMIDE HCL 2 MG CAPSULE PO PRN (03:13)
[2022-10-22] MEDS ORDERED: NICOTINE POLACRILEX 2 MG GUM BUC PRN (03:13)
[2022-10-22] MEDS: metFORMIN HCL 500 MG TABLET (FP) PO SCH (06:07)
[2022-10-22] MEDS: INSULIN SLIDING SCALE (NOVOLOG) 1 VIAL SQ SCH ×3 (07:00→16:50)
[2022-10-22] MEDS: NICOTINE 21 MG/24 HOURS TOPICAL PATCH TD SCH (11:38)
[2022-10-22] MEDS: PRENATAL VITAMINS W/ FOLIC ACID TABLET (FP) PO SCH (11:39)
[2022-10-22] MEDS: MELATONIN 5 MG TABLETS PO SCH (21:59)
[2022-10-22] MEDS: THIAMINE HCL 100 MG TABLET (FP) PO SCH (21:59)
[2022-10-23] MEDS: metFORMIN HCL 500 MG TABLET (FP) PO SCH (06:48)
[2022-10-23] MEDS: INSULIN SLIDING SCALE (NOVOLOG) 1 VIAL SQ SCH ×3 (06:50→16:46)
[2022-10-23] MEDS: PRENATAL VITAMINS W/ FOLIC ACID TABLET (FP) PO SCH (10:36)
[2022-10-23] MEDS: NICOTINE 21 MG/24 HOURS TOPICAL PATCH TD SCH (10:36)
[2022-10-23] MEDS ORDERED: INSULIN SLIDING SCALE (NOVOLOG) 1 VIAL SQ ONE (15:08)
[2022-10-23] MEDS ORDERED: INSULIN (NOVOLOG) ASPART 100 UNITS/ML 10ML VIAL SQ ONE (21:35)
[2022-10-23] MEDS: THIAMINE HCL 100 MG TABLET (FP) PO SCH (21:46)
[2022-10-23] MEDS: MELATONIN 5 MG TABLETS PO SCH (21:46)
[2022-10-23] MEDS: DIVALPROEX SODIUM 500 MG TABLET E.C. PO SCH (21:53)
[2022-10-24] MEDS: metFORMIN HCL 500 MG TABLET (FP) PO SCH (06:15)
[2022-10-24] MEDS: INSULIN SLIDING SCALE (NOVOLOG) 1 VIAL SQ SCH (06:16)
[2022-10-24 09:00] VITALS: BP 108/60; PULSE 78; RESP 18; TEMP 97.8
[2022-10-24] MEDS: NICOTINE 21 MG/24 HOURS TOPICAL PATCH TD SCH (09:21)
[2022-10-24] MEDS: DIVALPROEX SODIUM 500 MG TABLET E.C. PO SCH (09:21)
[2022-10-24] MEDS: PRENATAL VITAMINS W/ FOLIC ACID TABLET (FP) PO SCH (09:21)
== END 2022-10-24 09:26 | disposition home or self-care (01) | DRG 774 ==
LOC: YASAS 01:36 → UNDOADMIN 05:04 → Y3N 05:04 → UNDODISIN 10-24 09:26
PROVIDERS: ADMIT Allergy & Immunology; ATTEND Allergy & Immunology
PROC: HZ2ZZZZ Detoxification Services for Substance Abuse Treatment (ICD-10-PCS; principal; 2022-10-22)
DX: F10.230 Alcohol dependence with withdrawal, uncomplicated (principal); F14.20 Cocaine dependence, uncomplicated; F12.20 Cannabis dependence, uncomplicated; F17.210 Nicotine dependence, cigarettes, uncomplicated; F25.0 Schizoaffective disorder, bipolar type; F31.81 Bipolar II disorder; E10.9 Type 1 diabetes mellitus without complications; Z79.4 Long term (current) use of insulin; J45.909 Unspecified asthma, uncomplicated; Z62.810 Personal history of physical and sexual abuse in childhood; Z86.19 Personal history of other infectious and parasitic diseases; Z88.6 Allergy status to analgesic agent; Z91.018 Allergy to other foods; Z91.013 Allergy to seafood
CPT/HCPCS: 36415; 82962; 86593; 86780; C9803-CS; U0003; U0005

== ENCOUNTER 2022-12-10 08:19 | Inpatient (IN) | payer OTHER ==
[2022-12-10 08:51] VITALS: BMI 23.6
[2022-12-10] MEDS ORDERED: hydrOXYzine PAMOATE 25 MG CAPSULE (FP) PO PRN (09:34)
[2022-12-10] MEDS ORDERED: NALOXONE HCL (KLOXXADO) 8 MG SPRAY NS PRN (09:34)
[2022-12-10] MEDS ORDERED: ONDANSETRON *ODT* 4 MG TABLET SL PRN (09:34)
[2022-12-10] MEDS ORDERED: NALOXONE HCL 0.4 MG/ML VIAL IM PRN (09:34)
[2022-12-10] MEDS ORDERED: NICOTINE POLACRILEX 4 MG GUM BUC PRN (09:34)
[2022-12-10] MEDS ORDERED: BENZONATATE 200 MG CAPSULE PO PRN (09:34)
[2022-12-10] MEDS ORDERED: BENZOCAINE/MENTHOL (CHLORASEPTIC ) LOZENGE MM PRN (09:34)
[2022-12-10] MEDS ORDERED: guaiFENesin 600 MG TABLET.ER (FP) PO PRN (09:34)
[2022-12-10] MEDS ORDERED: LOPERAMIDE HCL 2 MG CAPSULE PO PRN (09:34)
[2022-12-10] MEDS ORDERED: MAG HYDROX/AL HYDROX/SIMETH 30 ML UNIT-DOSE CUP PO PRN (09:34)
[2022-12-10] MEDS ORDERED: DICYCLOMINE HCL 10 MG CAPSULE PO PRN (09:34)
[2022-12-10] MEDS ORDERED: METHOCARBAMOL 500 MG TABLET PO PRN (09:34)
[2022-12-10] MEDS ORDERED: BISMUTH SUBSALICYLATE 524 MG/30 ML PO PRN (09:34)
[2022-12-10] MEDS ORDERED: IBUPROFEN 600 MG TABLET (FP) PO PRN (09:34)
[2022-12-10] MEDS ORDERED: MAGNESIUM HYDROX 2400MG/30ML ORAL SUSPENSION 30 ML CUP PO PRN (09:34)
[2022-12-10] MEDS ORDERED: POLYETHYLENE GLYCOL (HEALTHYLAX) 3350 17 GM PACKET PO PRN (09:34)
[2022-12-10] MEDS ORDERED: IBUPROFEN 400 MG TABLET (FP) PO PRN (09:34)
[2022-12-10] MEDS ORDERED: ALBUTEROL SO4 HFA INHALER IH PRN (09:38)
[2022-12-10] MEDS ORDERED: INSULIN (NOVOLOG) ASPART 100 UNITS/ML 10ML VIAL SQ ONE (09:54)
[2022-12-10] MEDS ORDERED: INSULIN (NOVOLOG) ASPART 100 UNITS/ML 10ML VIAL ONE ×3 (10:19→23:11)
[2022-12-10] MEDS ORDERED: PRENATAL VITAMINS W/ FOLIC ACID TABLET (FP) PO ONE (10:20)
[2022-12-10] MEDS: PRENATAL VITAMINS W/ FOLIC ACID TABLET (FP) PO SCH (10:25)
[2022-12-10] MEDS: INSULIN SLIDING SCALE (NOVOLOG) 1 VIAL SQ SCH ×3 (11:56→23:05)
[2022-12-10] MEDS: DIVALPROEX SODIUM 500 MG TABLET E.C. PO SCH ×2 (12:50→22:48)
[2022-12-10] MEDS: metFORMIN HCL 500 MG TABLET (FP) PO SCH (17:20)
[2022-12-10] MEDS: THIAMINE HCL 100 MG TABLET (FP) PO SCH (22:48)
[2022-12-10] MEDS: INSULIN (LEVEMIR) 100 UNITS/ML UNITS SQ SCH (23:05)
[2022-12-10] MEDS ORDERED: INSULIN (LEVEMIR) 100 UNITS/ML UNITS SQ ONE (23:12)
[2022-12-10] MEDS: MELATONIN 5 MG TABLETS PO SCH (23:21)
[2022-12-11] MEDS: metFORMIN HCL 500 MG TABLET (FP) PO SCH ×3 (06:00→17:56)
[2022-12-11] MEDS: INSULIN SLIDING SCALE (NOVOLOG) 1 VIAL SQ SCH ×4 (07:48→22:03)
[2022-12-11] MEDS ORDERED: INSULIN (NOVOLOG) ASPART 100 UNITS/ML 10ML VIAL ONE ×2 (07:54→17:00)
[2022-12-11] MEDS: DIVALPROEX SODIUM 500 MG TABLET E.C. PO SCH ×2 (10:21→22:02)
[2022-12-11] MEDS: PRENATAL VITAMINS W/ FOLIC ACID TABLET (FP) PO SCH (10:21)
[2022-12-11 10:44] LABS: HEMATOCRIT 43.3 % (35.4-49); HEMOGLOBIN 14.2 GM/dL (11.7-16.9); MCH 30.6 pg (25.7-33.7); MCHC 32.8 g/dl (32.0-35.9); MEAN CELL VOLUME 93.3 fl (80-96); MEAN PLT VOLUME 11.9 fl (7.5-11.1); PLATELET COUNT 305 10^3/uL (134-434); RBC 4.65 M/mm3 (4.00-5.60); RDW 12.8 % (11.9-15.9); WHITE BLOOD COUNT 8.1 K/mm3 (4.0-10.0)
[2022-12-11 10:46] LABS: POTASSIUM 4.5 mmol/L (3.5-5.1)
[2022-12-11 10:51] LABS: CALCIUM 9.2 mg/dL (8.5-10.1)
[2022-12-11 10:52] LABS: ALBUMIN 2.9 g/dl (3.4-5.0); BLOOD UREA NITROGEN 7.2 mg/dL (7-18)
[2022-12-11 10:55] LABS: CREATININE 0.8 mg/dL (0.55-1.3)
[2022-12-11 10:56] LABS: BILIRUBIN,TOTAL 0.4 mg/dL (0.2-1); TOT PROT 6.9 g/dl (6.4-8.2)
[2022-12-11] MEDS ORDERED: diazePAM 5 MG TABLET PO PRN (10:59)
[2022-12-11] MEDS: diazePAM 5 MG TABLET PO SCH ×3 (17:37→22:03)
[2022-12-11] MEDS: INSULIN (LEVEMIR) 100 UNITS/ML UNITS SQ SCH (22:05)
[2022-12-11] MEDS: THIAMINE HCL 100 MG TABLET (FP) PO SCH (22:09)
[2022-12-11] MEDS: MELATONIN 5 MG TABLETS PO SCH (23:08)
[2022-12-12] MEDS ORDERED: diazePAM 5 MG TABLET PO SCH (06:00)
[2022-12-12] MEDS: metFORMIN HCL 500 MG TABLET (FP) PO SCH (06:10)
[2022-12-12] MEDS: INSULIN SLIDING SCALE (NOVOLOG) 1 VIAL SQ SCH (06:10)
[2022-12-12 09:20] VITALS: BP 132/72; PULSE 72; RESP 17; TEMP 97.3
[2022-12-12] MEDS: PRENATAL VITAMINS W/ FOLIC ACID TABLET (FP) PO SCH (10:18)
[2022-12-12] MEDS: DIVALPROEX SODIUM 500 MG TABLET E.C. PO SCH (10:18)
[2022-12-13] MEDS ORDERED: diazePAM 5 MG TABLET PO SCH (06:00)
[2022-12-14] MEDS ORDERED: diazePAM 5 MG TABLET PO ONE (06:00)
== END 2022-12-12 12:06 | disposition left against medical advice (07) | DRG 770 ==
LOC: YASAS 08:19 → UNDOADMIN 10:37 → Y6N 10:37 → UNDODISIN 12-12 12:06
PROVIDERS: ADMIT Allergy & Immunology; ATTEND Surgery
PROC: HZ2ZZZZ Detoxification Services for Substance Abuse Treatment (ICD-10-PCS; principal; 2022-12-10)
DX: F10.230 Alcohol dependence with withdrawal, uncomplicated (principal); F14.20 Cocaine dependence, uncomplicated; F12.20 Cannabis dependence, uncomplicated; F17.210 Nicotine dependence, cigarettes, uncomplicated; F25.0 Schizoaffective disorder, bipolar type; F19.282 Other psychoactive substance dependence with psychoactive substance-induced sleep disorder; F19.24 Other psychoactive substance dependence with psychoactive substance-induced mood disorder; E10.9 Type 1 diabetes mellitus without complications; Z79.4 Long term (current) use of insulin; J45.20 Mild intermittent asthma, uncomplicated; Z62.810 Personal history of physical and sexual abuse in childhood; Z88.6 Allergy status to analgesic agent; Z91.018 Allergy to other foods
CPT/HCPCS: 36415; 80053; 80164; 82962; 83036; 85027; 86593; 86780; 87635; 87811

== ENCOUNTER 2022-12-31 20:59 | Inpatient (IN) | payer OTHER ==
[2022-12-31] MEDS ORDERED: ALBUTEROL SO4 HFA INHALER IH PRN (21:28)
[2022-12-31 21:29] VITALS: BMI 23.3
[2022-12-31] MEDS ORDERED: POLYETHYLENE GLYCOL (HEALTHYLAX) 3350 17 GM PACKET PO PRN (21:29)
[2022-12-31] MEDS ORDERED: hydrOXYzine PAMOATE 25 MG CAPSULE (FP) PO PRN (21:29)
[2022-12-31] MEDS ORDERED: BENZOCAINE/MENTHOL (CHLORASEPTIC ) LOZENGE MM PRN (21:29)
[2022-12-31] MEDS ORDERED: NALOXONE HCL (KLOXXADO) 8 MG SPRAY NS PRN (21:29)
[2022-12-31] MEDS ORDERED: BENZONATATE 200 MG CAPSULE PO PRN (21:29)
[2022-12-31] MEDS ORDERED: NICOTINE POLACRILEX 2 MG GUM BUC PRN (21:29)
[2022-12-31] MEDS ORDERED: NALOXONE HCL 0.4 MG/ML VIAL IM PRN (21:29)
[2022-12-31] MEDS ORDERED: guaiFENesin 600 MG TABLET.ER (FP) PO PRN (21:29)
[2022-12-31] MEDS ORDERED: ONDANSETRON *ODT* 4 MG TABLET SL PRN (21:29)
[2022-12-31] MEDS ORDERED: DICYCLOMINE HCL 10 MG CAPSULE PO PRN (21:29)
[2022-12-31] MEDS ORDERED: IBUPROFEN 400 MG TABLET (FP) PO PRN (21:29)
[2022-12-31] MEDS ORDERED: IBUPROFEN 600 MG TABLET (FP) PO PRN (21:29)
[2022-12-31] MEDS ORDERED: BISMUTH SUBSALICYLATE 524 MG/30 ML PO PRN (21:29)
[2022-12-31] MEDS ORDERED: METHOCARBAMOL 500 MG TABLET PO PRN (21:29)
[2022-12-31] MEDS ORDERED: MAG HYDROX/AL HYDROX/SIMETH 30 ML UNIT-DOSE CUP PO PRN (21:29)
[2022-12-31] MEDS ORDERED: MAGNESIUM HYDROX 2400MG/30ML ORAL SUSPENSION 30 ML CUP PO PRN (21:29)
[2022-12-31] MEDS ORDERED: LOPERAMIDE HCL 2 MG CAPSULE PO PRN (21:29)
[2023-01-01] MEDS ORDERED: INSULIN (NOVOLOG) ASPART 100 UNITS/ML 10ML VIAL SQ ONE (01:11)
[2023-01-01] MEDS: INSULIN (LEVEMIR) 100 UNITS/ML UNITS SQ SCH ×2 (01:30→21:48)
[2023-01-01] MEDS: THIAMINE HCL 100 MG TABLET (FP) PO SCH ×2 (01:31→21:47)
[2023-01-01] MEDS: MELATONIN 5 MG TABLETS PO SCH ×2 (01:31→21:47)
[2023-01-01] MEDS: metFORMIN HCL 500 MG TABLET (FP) PO SCH ×2 (06:06→17:13)
[2023-01-01] MEDS: INSULIN SLIDING SCALE (NOVOLOG) 1 VIAL SQ SCH ×3 (06:07→17:13)
[2023-01-01] MEDS ORDERED: INSULIN SLIDING SCALE (NOVOLOG) 1 VIAL SQ ONE (06:42)
[2023-01-01] MEDS: PRENATAL VITAMINS W/ FOLIC ACID TABLET (FP) PO SCH (10:29)
[2023-01-01] MEDS: NICOTINE 21 MG/24 HOURS TOPICAL PATCH TD SCH (10:29)
[2023-01-01 11:44] LABS: POTASSIUM 3.9 mmol/L (3.5-5.1)
[2023-01-01 11:50] LABS: CALCIUM 8.7 mg/dL (8.5-10.1)
[2023-01-01 11:51] LABS: ALBUMIN 3.2 g/dl (3.4-5.0); BLOOD UREA NITROGEN 14.9 mg/dL (7-18)
[2023-01-01 11:55] LABS: TOT PROT 6.7 g/dl (6.4-8.2)
[2023-01-01 11:56] LABS: HEMATOCRIT 40.8 % (35.4-49); HEMOGLOBIN 13.8 GM/dL (11.7-16.9); MCH 30.9 pg (25.7-33.7); MCHC 33.9 g/dl (32.0-35.9); MEAN CELL VOLUME 91.1 fl (80-96); MEAN PLT VOLUME 11.5 fl (7.5-11.1); PLATELET COUNT 100 10^3/uL (134-434); RBC 4.48 M/mm3 (4.00-5.60); RDW 13.4 % (11.9-15.9); WHITE BLOOD COUNT 5.6 K/mm3 (4.0-10.0)
[2023-01-02] MEDS: metFORMIN HCL 500 MG TABLET (FP) PO SCH ×2 (07:33→16:39)
[2023-01-02] MEDS: INSULIN SLIDING SCALE (NOVOLOG) 1 VIAL SQ SCH ×3 (07:34→16:39)
[2023-01-02] MEDS ORDERED: diazePAM 5 MG TABLET PO PRN (09:58)
[2023-01-02] MEDS: diazePAM 5 MG TABLET PO SCH ×3 (10:33→22:01)
[2023-01-02] MEDS: PRENATAL VITAMINS W/ FOLIC ACID TABLET (FP) PO SCH (10:34)
[2023-01-02] MEDS: NICOTINE 21 MG/24 HOURS TOPICAL PATCH TD SCH (10:34)
[2023-01-02] MEDS: INSULIN (LEVEMIR) 100 UNITS/ML UNITS SQ SCH (21:48)
[2023-01-02] MEDS: MELATONIN 5 MG TABLETS PO SCH (21:49)
[2023-01-02] MEDS: THIAMINE HCL 100 MG TABLET (FP) PO SCH (21:49)
[2023-01-02] MEDS: DIVALPROEX SODIUM 500 MG TABLET E.C. PO SCH (21:50)
[2023-01-03] MEDS: diazePAM 5 MG TABLET PO SCH ×4 (05:59→22:48)
[2023-01-03] MEDS: metFORMIN HCL 500 MG TABLET (FP) PO SCH ×2 (06:11→17:15)
[2023-01-03] MEDS: INSULIN SLIDING SCALE (NOVOLOG) 1 VIAL SQ SCH ×3 (08:00→17:16)
[2023-01-03] MEDS ORDERED: INSULIN SLIDING SCALE (NOVOLOG) 1 VIAL SQ ONE (08:01)
[2023-01-03] MEDS: DIVALPROEX SODIUM 500 MG TABLET E.C. PO SCH ×2 (10:37→22:48)
[2023-01-03] MEDS: PRENATAL VITAMINS W/ FOLIC ACID TABLET (FP) PO SCH (10:37)
[2023-01-03] MEDS: NICOTINE 21 MG/24 HOURS TOPICAL PATCH TD SCH (10:44)
[2023-01-03] MEDS: THIAMINE HCL 100 MG TABLET (FP) PO SCH (22:48)
[2023-01-03] MEDS: MELATONIN 5 MG TABLETS PO SCH (22:49)
[2023-01-03] MEDS: INSULIN (LEVEMIR) 100 UNITS/ML UNITS SQ SCH (22:58)
[2023-01-04] MEDS: diazePAM 5 MG TABLET PO SCH ×2 (06:16→13:13)
[2023-01-04] MEDS: metFORMIN HCL 500 MG TABLET (FP) PO SCH (06:16)
[2023-01-04 06:18] VITALS: RESP 18
[2023-01-04] MEDS: INSULIN SLIDING SCALE (NOVOLOG) 1 VIAL SQ SCH ×2 (06:22→12:10)
[2023-01-04 08:48] VITALS: BP 124/73; PULSE 77; TEMP 98.1
[2023-01-04] MEDS: NICOTINE 21 MG/24 HOURS TOPICAL PATCH TD SCH (09:52)
[2023-01-04] MEDS: PRENATAL VITAMINS W/ FOLIC ACID TABLET (FP) PO SCH (09:52)
[2023-01-04] MEDS: DIVALPROEX SODIUM 500 MG TABLET E.C. PO SCH (09:52)
[2023-01-05] MEDS ORDERED: diazePAM 5 MG TABLET PO SCH (06:00)
[2023-01-06] MEDS ORDERED: diazePAM 5 MG TABLET PO ONE (06:00)
== END 2023-01-04 12:48 | disposition left against medical advice (07) | DRG 770 ==
LOC: YASAS 20:59 → UNDOADMIN 23:24 → Y3N 23:24
PROVIDERS: ADMIT Allergy & Immunology; ATTEND Allergy & Immunology
PROC: HZ2ZZZZ Detoxification Services for Substance Abuse Treatment (ICD-10-PCS; principal; 2022-12-31)
DX: F19.230 Other psychoactive substance dependence with withdrawal, uncomplicated (principal); F14.20 Cocaine dependence, uncomplicated; F12.20 Cannabis dependence, uncomplicated; F17.210 Nicotine dependence, cigarettes, uncomplicated; F25.0 Schizoaffective disorder, bipolar type; F31.81 Bipolar II disorder; F19.24 Other psychoactive substance dependence with psychoactive substance-induced mood disorder; G47.00 Insomnia, unspecified; E10.9 Type 1 diabetes mellitus without complications; Z79.4 Long term (current) use of insulin; Z62.810 Personal history of physical and sexual abuse in childhood; Z86.19 Personal history of other infectious and parasitic diseases; Z88.6 Allergy status to analgesic agent; Z56.0 Unemployment, unspecified; Z59.00 Homelessness unspecified
CPT/HCPCS: 36415; 80053; 82962; 85027; 86593; 86780; 87635